=== PATIENT | male | born 1975 | race Caucasian/White ===

== ENCOUNTER 2020-04-23 19:19 | Outpatient (CLI) | payer BC | END 2020-04-23 19:20 | disposition EMS.NT | LOC: EMS 19:19 | PROVIDERS: ATTEND Surgery | DX: R58 Hemorrhage, not elsewhere classified (principal) ==

== ENCOUNTER 2020-04-23 20:07 | Emergency (ER) | payer BC ==
[2020-04-23 20:13] VITALS: BP 143/93
[2020-04-23] MEDS ORDERED: BACITRACIN ZINC OINT 1 PACKET TOP STA (20:22)
--- NOTE | 2020-04-23 20:24 | ED Physician Documentation ---
History of Present Illness - Stated complaint Stated Complaint: RT LEG LAC - Chief complaint Chief Complaint: General - History obtained from History obtained from: Patient - Additonal information Additional information: 4-year-old male presents to the emergency department with a bleeding right medial varicose vein. He reports that he got out of the shower and his he was drying his legs with a towel the vessel ruptured. He had difficulty getting the bleeding to stop so he presented to the emergency department. Patient reports that he has recently been told that he is likely a diabetic. He does have bilateral lower extremity leg swelling that is not new to him. He also has fairly extensive hemosiderin staining bilaterally. Review of Systems Constitutional: reports: Reviewed and negative Ears: reports: Reviewed and negative Nose: reports: Reviewed and negative Throat: reports: Reviewed and negative Cardiac: reports: Other (Lateral lower extremity swelling) Respiratory: reports: Reviewed and negative Skin: reports: Lesions (Extensive varicose veins noted bilateral lower extremities.) Musculoskeletal: reports: Reviewed and negative Neurologic: reports: Reviewed and negative PD PAST MEDICAL HISTORY - Present Medications Home Medications: Ambulatory Orders Medication Instructions Recorded Confirmed No Known Home Medications 04/23/20 04/23/20 - Allergies Allergies/Adverse Reactions: Allergies Allergy/AdvReac Type Severity Reaction Status Date / Time No Known Drug Allergies Allergy Verified 04/23/20 20:13 PD ED PE EXPANDED - General General: Alert, No acute distress, Other (obese) - Cardiac Cardiac: Regular Rate, Regular Rhythm, Radial strong equal, Femoral strong equal, Pedal strong equal, Cap refill < 2 sec, Other (ble non peitting edema). No: Murmur Present - Respiratory Respiratory: Clear to ausultation brandt. No: Distress, Labored - Derm Derm: Other (hemosiderin staining BLE; multiple varicosities. Right medial varicose veing that is the site of the previous bleed no longer bleeding. Small clot seen over vein, no further active bleeding) Results - Vitals Vitals: Vital Signs - 24 hr 04/23/20 20:10 Temperature 36.5 C Heart Rate 94 Respiratory 16 Rate Blood Pressure 143/93 H O2 Saturation 99 Oxygen O2 Source Room air PD MEDICAL DECISION MAKING - ED course Complexity details: d/w patient ED course: 44-year-old male presents to the emergency department with a bleeding varicose vein that he could not get to stop bleeding at home. He did apply a pressure wrap and present to the emergency department. On exam here the site of the previous bleeding is no longer active. At this time no further intervention is required. I discussed with the patient routine care measures for the management of bleeding varicose veins at home including leg elevation. Unfortunately this gentleman is obese and was recently told that he is likely a diabetic. He does have extensive hemosiderin staining. He is continuing to follow-up with his primary care provider for longer-term monitoring and management of that. Departure - Departure Disposition: Home, Self Care Clinical Impression: Varicose vein of leg Qualifiers: Varicose vein complication: inflammation Laterality: right Qualified Code(s): I83.11 - Varicose veins of right lower extremity with inflammation Condition: Stable Record reviewed to determine appropriate education?: Yes Instructions: ED Veins Varicose, Veins Varicose EVLT Tx Comments: Hussain you do have extensive varicose veins in your lower extremities. I would like you to try elevating your legs overnight in the long-term to help reduce the edema and swelling. In 24 hours you may gently remove the dressing that we have placed. If at any point in the future your varicose veins begin to bleed again hold gentle but firm pressure for 20 to 30 minutes if the bleeding does not stop at that time then please present to the emergency department. On exam of your legs you are developing peripheral vascular disease (this is the redness and small ulcers). Please continue to follow-up with your primary care provider for long-term management of what sounds like early diabetes.
== END 2020-04-23 20:40 | disposition home or self-care (01) ==
LOC: ED 20:07
DX: I83.891 Varicose veins of right lower extremity with other complications (principal); E66.9 Obesity, unspecified; L81.8 Other specified disorders of pigmentation
CPT/HCPCS: 99282; 99283

== ENCOUNTER 2020-05-14 08:00 | Outpatient (CLI) | payer BC ==
[2020-05-14 11:41] LABS: BASOPHILS # (AUTO) 0.1 10^3/uL (0.0-0.1); BASOPHILS % (AUTO) 1.1 %; EOSINOPHILS # (AUTO) 0.1 10^3/uL (0.0-0.7); EOSINOPHILS % (AUTO) 0.9 %; HGB - HEMOGLOBIN 17.7 g/dL (14.0-18.0); LYMPHOCYTES # (AUTO) 1.6 10^3/uL (1.5-3.5); LYMPHOCYTES % (AUTO) 16.3 %; MEAN CORPUSCULAR HGB CONC 31.7 g/dL (32.0-36.0); MEAN CORPUSCULAR VOLUME 107.3 fL (80.0-94.0); MONOCYTES # (AUTO) 0.9 10^3/uL (0.0-1.0); MONOCYTES % (AUTO) 9.3 %; NEUTROPHILS # (AUTO) 6.8 10^3/uL (1.5-6.6); NEUTROPHILS % (AUTO) 71.5 %; PLT - PLATELET COUNT 263 10^3/uL (130-450); RED BLOOD COUNT 5.21 10^6/uL (4.70-6.10); RED CELL DISTRIBUTION WIDTH 12.4 % (12.0-15.0); WHITE BLOOD COUNT 9.5 x10^3/uL (4.8-10.8)
[2020-05-14 12:15] LABS: ALBUMIN/GLOBULIN RATIO 1.3 (1.0-2.2); ALKALINE PHOSPHATASE 57 IU/L (42-121); ALT ALANINE AMINOTRANSFERASE 30 IU/L (10-60); AST ASPARTATE AMINOTRANSFERASE 20 IU/L (10-42); BILIRUBIN,TOTAL 0.6 mg/dL (0.2-1.0); BUN - BLOOD UREA NITROGEN 12 mg/dL (6-20); CALCIUM 9.3 mg/dL (8.5-10.3); CARBON DIOXIDE - CO2 27 mmol/L (21-32); CHLORIDE 103 mmol/L (101-111); CHOLESTEROL 182 mg/dL; CREATININE 0.8 mg/dL (0.6-1.2); GLUCOSE 127 mg/dL (70-100); HDL CHOLESTEROL 60 mg/dL; LDL CHOLESTEROL,CALCULATED 107 mg/dL; LDL/HDL RATIO 1.8 (<3.6); SODIUM 139 mmol/L (135-145); TOTAL PROTEIN 7.2 g/dL (6.7-8.2); VLDL CHOLESTEROL 15 mg/dL
[2020-05-14 12:20] LABS: HEMOGLOBIN A1c% 6.9 % (4.27-6.07)
== END 2020-05-14 23:59 | disposition home or self-care (01) ==
LOC: LAB.WCP 08:00
PROVIDERS: ATTEND Family Medicine
DX: I10 Essential (primary) hypertension (principal); E66.9 Obesity, unspecified; R73.02 Impaired glucose tolerance (oral)
CPT/HCPCS: 36415; 80053; 80061; 83036; 83721; 84443; 85025

== ENCOUNTER 2020-06-03 08:00 | Outpatient (CLI) | payer BC ==
[2020-06-03 13:36] LABS: FERRITIN 86.7 ng/mL (23.9-336.2)
[2020-06-03 13:42] LABS: % IRON SATURATION 18 % (20-50); IRON 72 ug/dL (45-182); TOTAL IRON BINDING CAPACITY 405 ug/dL (250-450); TRANSFERRIN 289 mg/dL (180-329)
[2020-06-03 13:43] LABS: FOLATE 7.68 ng/mL (5.90 - >24.8)
== END 2020-06-03 23:59 | disposition home or self-care (01) ==
LOC: LAB.WCP 08:00
PROVIDERS: ATTEND Family Medicine
DX: D75.89 Other specified diseases of blood and blood-forming organs (principal)
CPT/HCPCS: 36415; 82607; 82728; 82746; 83540; 84466

== ENCOUNTER 2020-06-05 10:49 | Outpatient (CLI) | payer BC ==
[2020-06-05 18:50] LABS: CALCIUM 9.6 mg/dL (8.5-10.3)
== END 2020-06-05 10:50 | disposition home or self-care (01) ==
LOC: LAB.WCP 10:49
PROVIDERS: ATTEND Nurse Practitioner Family
DX: I10 Essential (primary) hypertension (principal)
CPT/HCPCS: 36415; 80048

== ENCOUNTER 2020-09-03 08:00 | Outpatient (CLI) | payer BC ==
[2020-09-03 12:28] LABS: ESTIMATED AVERAGE GLUCOSE 131 mg/dL (70-100); HEMOGLOBIN A1c% 6.2 % (4.27-6.07)
[2020-09-03 12:56] LABS: CALCIUM 10.1 mg/dL (8.5-10.3); CREATININE 0.9 mg/dL (0.6-1.2); POTASSIUM 4.3 mmol/L (3.5-5.0)
== END 2020-09-03 23:59 | disposition home or self-care (01) ==
LOC: LAB.WCP 08:00
PROVIDERS: ATTEND Nurse Practitioner Family
DX: E11.9 Type 2 diabetes mellitus without complications (principal)
CPT/HCPCS: 36415; 80048; 83036

== ENCOUNTER 2020-12-18 08:00 | Outpatient (CLI) | payer BC ==
[2020-12-18 17:57] LABS: CREATININE 1.1 mg/dL (0.6-1.2); POTASSIUM 4.1 mmol/L (3.5-5.0)
[2020-12-18 20:32] LABS: ESTIMATED AVERAGE GLUCOSE 143 mg/dL (70-100); HEMOGLOBIN A1c% 6.6 % (4.27-6.07)
== END 2020-12-18 23:59 | disposition home or self-care (01) ==
LOC: LAB.WCP 08:00
PROVIDERS: ATTEND Nurse Practitioner Family
DX: E11.9 Type 2 diabetes mellitus without complications (principal)
CPT/HCPCS: 36415; 80048; 83036

== ENCOUNTER 2021-08-03 09:50 | Outpatient (CLI) | payer BC ==
[2021-08-03 13:51] LABS: BASOPHILS # (AUTO) 0.1 10^3/uL (0.0-0.1); BASOPHILS % (AUTO) 0.9 %; EOSINOPHILS # (AUTO) 0.1 10^3/uL (0.0-0.7); EOSINOPHILS % (AUTO) 1.2 %; HCT - HEMATOCRIT 46.5 % (42.0-52.0); HGB - HEMOGLOBIN 15.3 g/dL (14.0-18.0); LYMPHOCYTES # (AUTO) 1.6 10^3/uL (1.5-3.5); LYMPHOCYTES % (AUTO) 16.3 %; MEAN CORPUSCULAR HEMOGLOBIN 35.8 pg (27.0-31.0); MEAN CORPUSCULAR HGB CONC 32.9 g/dL (32.0-36.0); MEAN CORPUSCULAR VOLUME 108.9 fL (80.0-94.0); MEAN PLATELET VOLUME 9.9 fL (7.4-11.4); MONOCYTES # (AUTO) 0.7 10^3/uL (0.0-1.0); MONOCYTES % (AUTO) 6.7 %; NEUTROPHILS # (AUTO) 7.4 10^3/uL (1.5-6.6); NEUTROPHILS % (AUTO) 73.8 %; PLT - PLATELET COUNT 309 10^3/uL (130-450); RED BLOOD COUNT 4.27 10^6/uL (4.70-6.10); RED CELL DISTRIBUTION WIDTH 14.3 % (12.0-15.0)
[2021-08-03 14:21] LABS: THYROID STIMULATING HORMONE 3.01 uIU/mL (0.34-5.60)
[2021-08-03 14:28] LABS: CREATININE,URINE 268.9 mg/dL; MICROALBUM/CREATININE RATIO,UR 28.6 ug/mg (<30.0); MICROALBUMIN,URINE 7.7 mg/dL (0-300.0)
[2021-08-03 14:37] LABS: ALBUMIN 3.6 g/dL (3.2-5.5); ALBUMIN/GLOBULIN RATIO 1.1 (1.0-2.2); ALKALINE PHOSPHATASE 67 IU/L (42-121); ALT ALANINE AMINOTRANSFERASE 40 IU/L (10-60); AST ASPARTATE AMINOTRANSFERASE 36 IU/L (10-42); BUN - BLOOD UREA NITROGEN 22 mg/dL (6-20); CARBON DIOXIDE - CO2 30 mmol/L (21-32); CHLORIDE 96 mmol/L (101-111); CHOL/HDL RATIO 2.9 (<5.0); CHOLESTEROL 187 mg/dL; CREATININE 1.4 mg/dL (0.6-1.2); GFR - MDRD 54 (>89); GLUCOSE 119 mg/dL (70-100); HDL CHOLESTEROL 65 mg/dL; LDL CHOLESTEROL,CALCULATED 100 mg/dL; LDL/HDL RATIO 1.5 (<3.6); POTASSIUM 4.6 mmol/L (3.5-5.0); SODIUM 137 mmol/L (135-145); TOTAL PROTEIN 6.8 g/dL (6.7-8.2); TRIGLYCERIDES 109 mg/dL; VLDL CHOLESTEROL 22 mg/dL
[2021-08-03 14:38] LABS: ESTIMATED AVERAGE GLUCOSE 146 mg/dL (70-100); HEMOGLOBIN A1c% 6.7 % (4.27-6.07)
== END 2021-08-03 09:51 | disposition home or self-care (01) ==
LOC: LAB.N 09:50
PROVIDERS: ATTEND Physician Assistant
DX: I10 Essential (primary) hypertension (principal); Z13.220 Encounter for screening for lipoid disorders; E11.9 Type 2 diabetes mellitus without complications; Z12.5 Encounter for screening for malignant neoplasm of prostate; Z13.29 Encounter for screening for other suspected endocrine disorder
CPT/HCPCS: 36415; 80053; 80061; 82043; 82570; 83036; 83721; 84153; 84443; 85025

== ENCOUNTER 2021-08-23 14:01 | Outpatient (CLI) | payer BC ==
[2021-08-23 18:29] LABS: CALCIUM 8.8 mg/dL (8.5-10.3); CREATININE 1.4 mg/dL (0.6-1.2); POTASSIUM 4.7 mmol/L (3.5-5.0)
== END 2021-08-23 14:02 | disposition home or self-care (01) ==
LOC: LAB.N 14:01
PROVIDERS: ATTEND Physician Assistant
DX: N17.9 Acute kidney failure, unspecified (principal)
CPT/HCPCS: 36415; 80048

== ENCOUNTER 2021-09-07 14:36 | Outpatient (CLI) | payer BC ==
[2021-09-07 18:35] LABS: ALBUMIN 3.8 g/dL (3.2-5.5); ALBUMIN/GLOBULIN RATIO 1.1 (1.0-2.2); BILIRUBIN,TOTAL 0.5 mg/dL (0.2-1.0); CALCIUM 9.5 mg/dL (8.5-10.3); CREATININE 1.1 mg/dL (0.6-1.2); MAGNESIUM 2.5 mg/dL (1.7-2.8); TOTAL PROTEIN 7.4 g/dL (6.7-8.2)
== END 2021-09-07 14:37 | disposition home or self-care (01) ==
LOC: LAB.N 14:36
PROVIDERS: ATTEND Physician Assistant
DX: N17.9 Acute kidney failure, unspecified (principal)
CPT/HCPCS: 36415; 80053; 83735

== ENCOUNTER 2022-07-09 11:00 | Inpatient (IN) | payer BC, MEDICAID, OTHER ==
--- NOTE | 2022-07-09 11:16 | ED Physician Documentation ---
PD HPI NVD - Stated complaint Stated Complaint: YELLOW SKIN,WEAK,ABD PX - History obtained from History obtained from: Patient, Friend (The patient's friend states he has noticed some yellowing color starting 2 to 3 weeks ago and progressively worsening. General weakness over that timeframe as well.) - History of Present Illness Timing - onset: How many weeks ago (2-3) Timing - duration: Weeks (Patient states he has noticed generalized weakness and some bloating of the abdomen along with progressive yellowing of his skin. He did have COVID about 3 months ago and was ill for 2 weeks. He seemed okay for a couple of months before onset of the symptoms.) Timing - details: Gradual onset, Still present Associated symptoms: Abdominal pain (He describes crampy generalized abdominal pain mainly in the lower aspect. Some bloating. No diarrhea no melena.). No: Fever Contributing factors: Alcohol use (He states he was a regular daily alcohol user until 2 weeks ago when he stopped due to feeling of general weakness. Has continued worsening jaundice despite that.). No: Sick contact (The patient had COVID about 3 months ago but not been exposed to any illnesses recently.), Recent antibiotics, Diabetes Improved by: No: Eating Worsened by: Eating (some nausea and less appetite but no vomiting nor abd pain triggered with eating.) Similar symptoms before: Has not had sx before Recently seen: Not recently seen Review of Systems Constitutional: reports: Myalgias, Fatigue. denies: Fever, Chills, Weight Loss Nose: denies: Rhinorrhea / runny nose, Congestion Throat: denies: Sore throat Respiratory: denies: Cough GI: reports: Abdominal Pain (intermittent cramping), Abdominal Swelling, Nausea. denies: Vomiting, Diarrhea Skin: reports: Other (progressive jaundice for 2-3 weeks.) Neurologic: reports: Generalized weakness. denies: Focal weakness, Numbness PD PAST MEDICAL HISTORY - Past Medical History Cardiovascular: Hypertension Respiratory: None Endocrine/Autoimmune: None GI: None - Present Medications Home Medications: Ambulatory Orders Medication Instructions Recorded Confirmed No Known Home Medications 04/23/20 04/23/20 - Allergies Allergies/Adverse Reactions: Allergies Allergy/AdvReac Type Severity Reaction Status Date / Time No Known Drug Allergies Allergy Verified 04/23/20 20:13 - Social History Does the pt smoke?: No Smoking Status: Never smoker Does the pt drink ETOH?: Yes Does the pt have substance abuse?: No - Immunizations Immunizations are current?: No - POLST Patient has POLST: No PD ED PE NORMAL - Vitals Vital signs reviewed: Yes - General General: Alert and oriented X 3, Well developed/nourished, Other (obvious general jaundice and icteric. ) - HEENT HEENT: Ears normal, Pharynx benign - Neck Neck: Supple, no meningeal sign, No adenopathy - Cardiac Cardiac: RRR, No murmur - Respiratory Respiratory: No respiratory distress, Clear bilaterally - Abdomen Abdomen: Soft, Other (fluid wave to percussion c/w some ascites. liver feels enlarged. No focal tenderness. ). No: Normal bowel sounds (decreased) - Male Male : Deferred - Rectal Rectal: Deferred - Back Back: No CVA TTP - Derm Derm: No: Normal color (jaundice) - Extremities Extremities: Normal ROM s pain, No calf tenderness / cord, Other (mild edema in both lower legs. ) Results - Vitals Vitals: Vital Signs - 24 hr 07/09/22 07/09/22 07/09/22 11:10 13:18 14:00 Temperature 36.9 C Heart Rate 78 61 64 Respiratory 18 18 20 Rate Blood Pressure 90/50 L 114/64 161/72 H O2 Saturation 99 100 98 07/09/22 14:26 Temperature Heart Rate 66 Respiratory 18 Rate Blood Pressure 126/81 H O2 Saturation 97 Oxygen O2 Source Room air - Labs Labs: Laboratory Tests 07/09/22 07/09/22 07/09/22 11:48 11:48 13:28 WBC 23.8 H RBC 3.17 L Hgb TNP Hct TNP MCV TNP MCH TNP MCHC TNP RDW TNP Plt Count 159 MPV 10.8 Neut # (Auto) Not Reportable Lymph # (Auto) Not Reportable [place] # (Auto) Not Reportable Eos # (Auto) Not Reportable Baso # (Auto) Not Reportable Absolute Nucleated RBC Not Reportable Total Counted 100 Band Neuts % (Manual) 11 H Abnorm Lymph % (Manual) 0 Metamyelocytes % 2 H Nucleated RBC % Not Reportable Neutrophils # (Manual) 21.7 H Lymphocytes # (Manual) 1.0 L Monocytes # (Manual) 0.7 Eosinophils # (Manual) 0.0 Basophils # (Manual) 0.0 Differential Comment MANUAL DIFFERENTIAL Manual Slide Review Indicated WBC Morphology 3+ TOXIC GRANULATION Platelet Estimate NORMAL (130-450,000) Platelet Morphology PLATELET CLUMPING RBC Morph Micro Appear 1+ TARGET CELLS Sodium 120 L* Potassium 2.0 L* Chloride 77 L* Carbon Dioxide 30 Anion Gap 13.0 BUN 25 H Creatinine 0.9 Estimated GFR (MDRD) 90 Glucose 147 H Calcium 7.7 L Magnesium 2.5 Total Bilirubin 27.4 H AST 181 H ALT 68 H Alkaline Phosphatase 230 H Ammonia Total Protein 6.2 L Albumin 1.7 L Globulin 4.5 H Albumin/Globulin Ratio 0.4 L Lipase 71 H Urine Color DARK YELLOW Urine Clarity CLEAR Urine pH 6.5 Ur Specific [place] <=1.005 Urine Protein NEGATIVE Urine Glucose (UA) 100 H Urine Ketones NEGATIVE Urine Occult Blood NEGATIVE Urine Nitrite NEGATIVE Urine Bilirubin LARGE H Urine Urobilinogen 1 (NORMAL) Ur Leukocyte Esterase NEGATIVE Ur Microscopic Review NOT INDICATED Urine Culture Comments NOT INDICATED Ethyl Alcohol < 5.0 07/09/22 13:45 WBC RBC Hgb Hct MCV MCH MCHC RDW Plt Count MPV Neut # (Auto) Lymph # (Auto) [place] # (Auto) Eos # (Auto) Baso # (Auto) Absolute Nucleated RBC Total Counted Band Neuts % (Manual) Abnorm Lymph % (Manual) Metamyelocytes % Nucleated RBC % Neutrophils # (Manual) Lymphocytes # (Manual) Monocytes # (Manual) Eosinophils # (Manual) Basophils # (Manual) Differential Comment Manual Slide Review WBC Morphology Platelet Estimate Platelet Morphology RBC Morph Micro Appear Sodium Potassium Chloride Carbon Dioxide Anion Gap BUN Creatinine Estimated GFR (MDRD) Glucose Calcium Magnesium Total Bilirubin AST ALT Alkaline Phosphatase Ammonia 74.5 H Total Protein Albumin Globulin Albumin/Globulin Ratio Lipase Urine Color Urine Clarity Urine pH Ur Specific [place] Urine Protein Urine Glucose (UA) Urine Ketones Urine Occult Blood Urine Nitrite Urine Bilirubin Urine Urobilinogen Ur Leukocyte Esterase Ur Microscopic Review Urine Culture Comments Ethyl Alcohol - Rads (name of study) abd/pelvic CT Radiology: Prelim report reviewed, See rad report PD Medical Decision Making - ED course Complexity details: re-evaluated patient, considered differential (Progressive new onset of painless jaundice with history of alcoholism. He also recent viral illness 3 months ago with COVID. Consideration of chronic liver disease now hitting the tipping point versus underlying liver disease from alcohol and new inflammatory condition. Also check duct/liver.), d/w patient Social Determinants of Health: chronic alcohol use up to 2 weeks ago. ED course: The patient does have a history of alcoholism and is presenting with apparent new onset jaundice. We do not have a trend on prior labs most recently, But he did have a normal bilirubin in August 2021. So this is relatively acute. Consideration would be a worsening injury from continued alcohol use versus a combination of alcohol toxicity and other acute injury such as hepatitis or a persistent organ inflammation from his recent COVID infection 3 months ago. He does have the acute liver failure. CT imaging does not show any outlet obstruction to account for the process. Concurrently he also has low sodium and low potassium and needs these improved upon. Likely these are well contributing to his general weakness. Independent review of his blood test that I ordered showed a critically low sodium of 120 and a potassium of 2.0. He also had a quite elevated bilirubin of 27. I ordered the CT scan to look for bile duct or flow outlet obstructions that may account for the elevated bilirubin. None were seen on the CT scan report which I evaluated. I did not see any abnormalities on my own review of the CT as well. I did order potassium infusions which need to be monitored on a heart monitor for side effects. I ordered 3 sequential ones to accommodate for the degree of hypokalemia. He is given sodium small bolus and then a low level infusion so as not to raise the sodium too quickly. He is awake alert and conversant. He does not have any signs of encephalopathy from either the sodium or the bilirubin. An ammonia level was drawn. At this point we could initiate some lactulose as well. I did talk with the hospitalist for consultation and evaluation for admission and the hospitalist felt the patient did meet admission criteria. They will write orders. I updated the patient on the findings and course anticipated and that he would be admitted. He was in agreement. Departure - Departure Disposition: 66 [facility] DC/Xfer Clinical Impression: Abdominal pain, Hyponatremia, Hypokalemia, Liver failure Condition: Stable
[2022-07-09] MEDS ORDERED: SODIUM CHLORIDE 0.9% 1,000 ML IV STA (11:41)
[2022-07-09 12:20] LABS: ALBUMIN 1.7 g/dL (3.2-5.5); ALBUMIN/GLOBULIN RATIO 0.4 (1.0-2.2); ALKALINE PHOSPHATASE 230 IU/L (42-121); ALT ALANINE AMINOTRANSFERASE 68 IU/L (10-60); AST ASPARTATE AMINOTRANSFERASE 181 IU/L (10-42); BILIRUBIN,TOTAL 27.4 mg/dL (0.2-1.0); BUN - BLOOD UREA NITROGEN 25 mg/dL (6-20); CALCIUM 7.7 mg/dL (8.5-10.3); CARBON DIOXIDE - CO2 30 mmol/L (21-32); CHLORIDE 77 mmol/L (101-111); CREATININE 0.9 mg/dL (0.6-1.2); ETOH - ETHANOL < 5.0 mg/dL; GFR - MDRD 90 (>89); GLUCOSE 147 mg/dL (70-100); LIPASE 71 U/L (22-51); MAGNESIUM 2.5 mg/dL (1.7-2.8); TOTAL PROTEIN 6.2 g/dL (6.7-8.2)
[2022-07-09 12:23] LABS: SODIUM 120 mmol/L (135-145)
[2022-07-09] MEDS ORDERED: iohexoL-300 100 ML VIAL ONE (12:45)
[2022-07-09 12:55] LABS: BASOPHILS % (AUTO) 0.5 %; EOSINOPHILS % (AUTO) 0.6 %; LYMPHOCYTES % (AUTO) 4.2 %; MEAN PLATELET VOLUME 10.8 fL (7.4-11.4); MONOCYTES % (AUTO) 4.6 %; NEUTROPHILS % (AUTO) 84.6 %; PLT - PLATELET COUNT 159 10^3/uL (130-450); RED BLOOD COUNT 3.17 10^6/uL (4.70-6.10); WHITE BLOOD COUNT 23.8 x10^3/uL (4.8-10.8)
[2022-07-09 12:58] LABS: SLIDE REVIEW? Indicated
[2022-07-09 13:00] LABS: ABNORMAL LYMPHS % (MANUAL) 0 %
[2022-07-09 13:16] LABS: BAND NEUTROPHILS % (MANUAL) 11 %; LYMPHOCYTES % (MANUAL) 4 %; METAMYELOCYTES % (MANUAL) 2 %; MONOCYTES # (MANUAL) 0.7 10^3/uL (0.0-1.0); NEUTROPHILS # (MANUAL) 21.7 10^3/uL (1.5-6.6)
[2022-07-09 13:18] LABS: PLATELET ESTIMATE, MANUAL NORMAL (130-450,000) (NORMAL); PLATELET MORPHOLOGY PLATELET CLUMPING (NORMAL)
[2022-07-09 13:19] LABS: DIFFERENTIAL COMMENT MANUAL DIFFERENTIAL; WBC MORPHOLOGY (MULTIPLE) 3+ TOXIC GRANULATION (NORMAL)
--- NOTE | 2022-07-09 13:32 | CT Report ---
PROCEDURE: CT abdomen pelvis with contrast INDICATIONS: 46-year-old male with new onset jaundice CONTRAST: 100ml omni 300 TECHNIQUE: After the administration of contrast, 5 mm thick sections acquired from the diaphragms to the sym physis. 5 mm thick coronal and sagittal reformats were acquired. For radiation dose reduction, the following was used: automated exposure control, adjustment of mA and/or kV according to patient size . COMPARISON: None. FINDINGS: Lower thorax: The lung bases are clear. Heart size normal. No hiatal hernia. Liver: Diffusely decreased hepatic attenuation without focal mass lesion. Hepatomegaly measures 33.2 cm Biliary system: No calcified cholelithiasis or pericholecystic inflammation. No evidence of bile du ct dilatation. Pancreas: Pancreas appears edematous, and there is a low-density lesion in the tail the pancreas chirag uring 2.4 cm Spleen: Spleen is enlarged at 15.5 cm Adrenals: Normal morphology and density. Reproductive system: Unremarkable as visualized. Urinary system: Normal renal size and attenuation. No renal calculi, hydronephrosis, or solid mass p resent. Urinary bladder unremarkable. Gastrointestinal system: Colonic bowel wall thickening. No obstruction or pneumatosis. Small bowel un remarkable. Appendix: No findings to suggest acute appendicitis. Peritoneal spaces: Moderate abdominal and pelvic ascites present. Vasculature: The IVC, aorta and iliac vasculature are unremarkable. Musculoskeletal: Normal bone mineralization. No acute fractures. Abdominal wall intact without chasity dence of ventral or inguinal hernias. IMPRESSION: 1. Hepatosplenomegaly without focal mass lesion. 2. Edematous pancreas with a focal hypointense lesion in the tail the pancreas. Differential would in clude neoplasm, pancreatitis and pancreatic necrosis 3. Moderate ascites Reviewed by: Bryant Alberto MD on 07/09/2022 12:30 PM [place] Approved by: Bryant Alberto MD on 07/09/2022 12:30 PM [facility] Station ID: [id number]
[2022-07-09] MEDS: POTASSIUM CHLOR 10 MEQ/100 ML 10 MEQ/100 ML BAG IV SCH ×5 (13:34→23:42)
[2022-07-09 13:36] LABS: GLUCOSE, URINE (UA) 100 mg/dL (NEGATIVE); KETONES,URINE (UA) NEGATIVE (NEGATIVE); LEUKOCYTE ESTERASE, URINE NEGATIVE (NEGATIVE); NITRITE,URINE NEGATIVE (NEGATIVE); OCCULT BLOOD,URINE NEGATIVE (NEGATIVE); PH,URINE 6.5 PH (5.0-7.5); PROTEIN,URINE NEGATIVE (NEGATIVE); UROBILINOGEN,URINE 1 (NORMAL) E.U./dL (NORMAL)
[2022-07-09 13:41] LABS: BILIRUBIN,URINE LARGE (NEGATIVE); CLARITY,URINE CLEAR (CLEAR); ICTOTEST,URINE POSITIVE
[2022-07-09] MEDS ORDERED: ONDANSETRON 4 MG/2 ML VIAL IVP PRN (14:38)
[2022-07-09] MEDS ORDERED: SODIUM CHLORIDE FLUSH 0.9% 10 ML SYRINGE IVP PRN (14:38)
[2022-07-09] MEDS ORDERED: ONDANSETRON ODT 4 MG TABLET TL PRN (14:38)
[2022-07-09] MEDS ORDERED: oxyCODONE 5 MG TABLET PO PRN (14:38)
--- NOTE | 2022-07-09 14:53 | HISTORY & PHYSICAL EXAMINATION ---
Chief Complaint - Chief Complaint Chief Complaint: yellow skin, bloating of abd, generalized weakness History of Present Illness - Admitted From Admitted From:: walked into ED - History Obtained From Records Reviewed: in electronic EHR History obtained from: patient Exam Limitations: none - History of Present Illness HPI Comment/Other: Hussain is a 46 yo smoking male with PMH of HTN, diabetes, alcohol use, drinks half of a fifth of vodka every night since he was let go from work a year ago, with 3-4 detoxes over his life, no seizures. Presented to ED with nausea, vomiting, abd cramping, and jaundice with out pain. His last drink was 2 weeks ago when he started having the above symptoms. His mom noticed his yellow skin, then he began to feel unwell, and wobbly. He took a "liver detox called the plug" that he bought online. Took several 8oz bottles of the detox but it did not help and he noticed his urine was getting dark brown. He was very uncomfortable and not able to get a good night's sleep so he came to the hospital. He presented to the ED with painless jaundice. He did have weight loss of 20lbs but that was over a year ago when he got COVID. His labs are Na 120, K 2.0, AST 181, ALT 68, total Bilirubin of 27.4, H&H was not able to be read due to gross icterus. WBC 23.8 CT imaging shows hepatomegaly, and a lesion in the tail of the pancreas, no evidence of bile duct dilation. He is not encephalopathic he does not have asterixis. Admitted to floor for hypokalemia and hyponatremia. He is a pleasant jaundiced man sitting up in bed. His physical exam is notable for hepatomegaly, a large protuberant abd that has a positive fluid wave. He had cramping for a few days with associated nausea and vomiting but denies pain now. He reports a white stool this am. When asked what he thinks is going on he responds that his liver levels are messed up. When the nurse was getting him up to go to the bathroom he fell due to weakness in his legs. Did not hit his head did not loose consciousness. History - Past Medical History Cardiovascular: reports: Hypertension Respiratory: reports: None Endocrine/Autoimmune: reports: None GI: reports: None, GERD : reports: None HEENT: reports: None (wears glasses) Psych: reports: Anxiety (has been told he has high functioning anxiety ) Musculoskeletal: reports: Fatigue (notes BLE weakness) Derm: reports: Other (jaundice) MRSA Hx?: No - Past Surgical History Cardiovascular: reports: Other (varicose vein cauterization RLE) - Family & Social History Family History Comment/Other: Mom: 73 yo. Dad: 73 yo with valvular heart disease and HTN. Brother: 47yo healhty Living arrangement: At home (family lives a couple of blocks away) Living Situation: Alone Social History Notes: Unemployed for a year - Substance History Use: Uses substance without health or social issues: Tobacco (Smoked 1ppd for over 20 years, now smokes just a few cigarettes a day), Alcohol (Drinks 3-4 beers per night, 1 DUI many years ago, no hx of withdrawal or seizures ) Abuse: Recurrent use of substance despite neg consequences: Alcohol (has been drinking half of a fifth of vodka a night) Abuse Issues: Intoxication Dependence: Experiences withdrawal or developed tolerances: Alcohol Dependence Issues: Intoxication Tobacco Details: Cigarettes - POLST Patient has POLST: No Meds/Allgy - Home Medications Home Medications: Ambulatory Orders Medication Instructions Recorded Confirmed Chlorthalidone 25 mg PO DAILY 07/09/22 07/09/22 Furosemide [Lasix] 20 mg PO DAILY 07/09/22 07/09/22 metFORMIN [Glucophage] 500 mg PO BIDWM 07/09/22 07/09/22 - Allergies Allergies/Adverse Reactions: Allergies Allergy/AdvReac Type Severity Reaction Status Date / Time No Known Drug Allergies Allergy Verified 04/23/20 20:13 Exam - Vital Signs Vital Signs: Vital Signs x48h Temp Pulse Resp BP Pulse Ox 07/09/22 14:26 66 18 126/81 H 97 07/09/22 14:00 64 20 161/72 H 98 07/09/22 13:18 61 18 114/64 100 07/09/22 11:10 36.9 C 78 18 90/50 L 99 - Physical Exam General Appearance: positive: No acute distress Eyes Bilateral: positive: Other (scleral icterus) ENT: positive: ENT inspection nml Neck: positive: Nml inspection Respiratory: positive: Chest non-tender Cardiovascular: positive: Regular rate & rhythm Peripheral Pulses: positive: 1+ Abdomen: positive: Tenderness (Liver palpable across midline of abd and extends down several inches below the rib cage.), Hepatomegaly Back: positive: Nml inspection Skin: positive: Warm, Dry (jaundice) Extremities: positive: Pedal edema (BLE edema R>L) Neurologic/Psychiatric: positive: Oriented x3 Conclusion/Plan - Problem List (1) Hypokalemia Conclusion/Plan: K+ 2.0 in ED Plan: goal of K>3.5, will replace K+ then recheck K lab, (2) Hyponatremia Conclusion/Plan: Na120 Plan: repeat BMP tonight, increase serum Na by 1 point every 2-4 hrs, infuse NS, and fluid restriction, (3) Liver failure Conclusion/Plan: AST 181, ALT 68, AST/ALT ratio>2, total bilirubin 27.4, painless jaundice with white stool this morning Plan: get PT, INR labs for Maddrey's, MELD, and [place] score, based on maddrey score may give steroids, will send off hepatitis panel, check acetaminophen level to rule out tylenol toxicity, MRCP ordered to rule out mass. Qualifiers: Liver failure chronicity: acute Hepatic coma status: without hepatic coma Qualified Code(s): K72.00 - Acute and subacute hepatic failure without coma (4) Hypertension Conclusion/Plan: Pt has diagnosis of HTN takes lasix and chlorthalidone as home meds. Plan: He is hypotensive right now, will hold his home meds Qualifiers: Hypertension type: primary hypertension Qualified Code(s): I10 - Essential (primary) hypertension (5) Diabetes Conclusion/Plan: takes metformin at home, numbness to BLE on exam, Glucose 147 today, has not had anything to eat today. Plan: Metformin may cause acidosis no metformin. Will manage his BG with sub q insulin while in shopital, check A1c Qualifiers: Diabetes mellitus type: type 2 Diabetes mellitus longterm insulin use: without regional intermodal truck driver use Diabetes mellitus complication status: with neurologic complications Diabetes mellitus complication detail: with polyneuropathy Qualified Code(s): E11.42 - Type 2 diabetes mellitus with diabetic polyneuropathy (6) Liver cirrhosis Conclusion/Plan: hx of heavy alcohol use, elevated total billirubin, AST/ALT>2 CT 07/09/22 Findings: -lower thorax: lung bases are clear heart size normal. No hiatal hernia. -Liver: diffusely decreased hepatic attenuation without focal mass lesion. Hepatomegaly measures 33.2cm -Biliary system: no calcified cholelithiasis or pericholecstic inflammation. No evidence of bile duct dilation. -Pancrease: pancrease appears edematous, and there is a low-density lesion in the tail of the pancrease measuring 2.4cm -Spleen: Spleen is enlarged at 15.5cm -Adrenals: normal morphology and density -Urinary system: normal renal size and attenuation. No renal calculi, hydronephrosis, or solid mass present. Urinary bladder unremarkable. -GI: colonic bowel wall thickening. No obstruction or pneumatosis. Small bowel unremarkable. -Appendix: no findings to suggest acute appendicitis. Plan: supportive care, hydration Qualifiers: Ascites presence: with ascites - Lab Results Lab results reviewed: Yes Fish Bones: 07/09/22 11:48 07/09/22 11:48 - Diagnostic Imaging Results Diagnostic Imaging Results: positive: Final report reviewed - EKG Results EKG Interpreted Independently: No EKG Comparison: No prior EKG Core Measures - Anticipated LOS I expect patient to be DC'd or transferred within 96 hours.: Yes - DVT/VTE - Prophylaxis VTE/DVT Device ordered at admit?: Yes - Stroke - Rehab Assessment Rehab services assessment to be ordered?: No
[2022-07-09] MEDS: SODIUM CHLORIDE 0.9% 1,000 ML IV SCH (15:27)
[2022-07-09 15:35] LABS: CORONAVIRUS 229E-RESP PCR NOT DETECTED; CORONAVIRUS HKU1-RESP PCR NOT DETECTED; CORONAVIRUS NL63-RESP PCR NOT DETECTED; CORONAVIRUS OC43-RESP PCR NOT DETECTED; HUMAN METAPNEUMOVIRUS NOT DETECTED; INFLUENZA A- RESP PCR PANEL NOT DETECTED; INFLUENZA B - RESP PCR PANEL NOT DETECTED; PARAINFLUENZA VIRUS 1 NOT DETECTED; PARAINFLUENZA VIRUS 2 NOT DETECTED; PARAINFLUENZA VIRUS 3 NOT DETECTED; PARAINFLUENZA VIRUS 4 NOT DETECTED; RHINOVIRUS/ENTEROVIRUS NOT DETECTED; RSV- RESP PCR PANEL NOT DETECTED; SARS-CoV-2 -RESP PCR PANEL NOT DETECTED
[2022-07-09] MEDS ORDERED: iohexoL-300 100 ML VIAL IVP ONE (15:35)
[2022-07-09 15:36] LABS: B. PARAPERTUSSIS- RESP PCR PAN NOT DETECTED; B. PERTUSSIS- RESP PCR PANEL NOT DETECTED; C. PNEUMONIAE- RESP PCR PANEL NOT DETECTED; M. PNEUMONIAE- RESP PCR PANEL NOT DETECTED
--- NOTE | 2022-07-09 16:56 | PHARMACY PROGRESS NOTE ---
- Best Possible Medication History Admit Date and Time: 07/09/22 1435 Processed by: Pharmacy Medication History completed: Yes Patient Interview: Pt interview ONLY source As the person ultimately responsible for medication therapy, providers are able to order a medication from an existing home medication list in [facility] via the "Reconcile Routine" prior to Confirmation of that medication by product support analyst. Such practice is discouraged except when the physician, in their clinical judgment, deems that a medical need exists for a medication without regard to previous use.
[2022-07-09 17:20] LABS: INR 2.2 (0.8-1.2); PT - PROTHROMBIN TIME 23.2 secs (9.9-12.6)
[2022-07-09] MEDS: SODIUM CHLORIDE FLUSH 0.9% 10 ML SYRINGE IVP SCH (17:37)
[2022-07-09] MEDS ORDERED: GADOBUTROL 15 MMOL/15 ML VIAL ONE (18:22)
[2022-07-09] MEDS ORDERED: GADOBUTROL 15 MMOL/15 ML VIAL IVP ONE (20:16)
[2022-07-09] MEDS: INSULIN LISPRO 300 UNIT/3 ML PEN SUBQ SCH (20:53)
[2022-07-09 21:32] LABS: CALCIUM 7.5 mg/dL (8.5-10.3); CREATININE 0.9 mg/dL (0.6-1.2)
[2022-07-09 21:35] LABS: POTASSIUM 2.1 mmol/L (3.5-5.0)
--- NOTE | 2022-07-09 22:06 | MRI Report ---
PROCEDURE: MRCP W/WO INDICATIONS: painless jaundice, pancreatic mass CONTRAST: 11.3 TECHNIQUE: Coronal ultra fast SE through the abdomen, axial 2-D spoiled GE in- and [id number], and breath-hold T2 FSE with fat saturation through the biliary system and pancreas. Oblique coronal and axial thin- slice ultra fast SE, radial thick-slab ultra fast SE centered on the extrahepatic bile ducts. COMPARISON: CT scanning of the abdomen/pelvis earlier same day reviewed. That study identified ascit es, hepatosplenomegaly, and a heterogeneous pancreatic tail masslike structure. FINDINGS: Image quality: Excellent. Pancreas and biliary system: Intra- and extra-hepatic biliary ducts are non dilated. Pancreas is no rmal in morphology on the right but laterally, on the left, at the pancreatic tail there is an ovoid region of heterogeneous enhancement, measuring approximately 4.4 cm transverse and 3.1 cm AP and cran iocaudad., without adjacent soft tissue edema. Pancreatic duct is normal in caliber, without develop mental anomalies. Gallbladder demonstrates mild prominence of the mucosal enhancement, but a discret e gallbladder mass or gallstone within the gallbladder lumen is not found Other solid organs: Liver and spleen are enlarged with the craniocaudad length of the liver 26.9 cm and that of the spleen 17.8 cm. The liver is heterogeneous, globally enlarged, demonstrates heterogen eous fatty infiltration, and lobular capsular morphology, without definite malignant masses within. No adrenal nodules. Both kidneys are normal in size, without hydronephrosis. Nodes and vessels: No retroperitoneal or mesenteric adenopathy by size criteria. Aorta and inferior vena cava are normal in size. Bowel and peritoneum: Unenhanced bowel loops are normal in caliber. Extensive ascites which extends into the pelvis is noted. Also noted are several areas of what appears to be anterior omental mild th ickening and lateral left upper quadrant peritoneal enhancement and slight thickening. Both inflammat ory and neoplastic etiology should be considered. Lung bases: No basal pleural effusions. Heart size is normal. Bones and soft tissues: No ventral hernias. Bone marrow is of normal overall signal. IMPRESSION: The cause of reported painless jaundice does not appear to be biliary ductal obstruction. There is he patosplenomegaly and prominent heterogeneity of the hepatic parenchyma in addition to moderately candice re ascites. Hepatic insufficiency is suspected as etiology of jaundice in this clinical circumstance. There is abnormality at the pancreatic tail as discussed above, which could represent coincidental id entification of a pancreatic malignancy. However, pancreatitis and pancreatic necrosis in that area a lso could produce this appearance. It may be warranted to obtain elective paracentesis for cytology assessment. Discrete peritoneal mass es are not seen but there is a slight degree of peritoneal enhancement at several areas within the le ft upper quadrant laterally and the omentum at the anterior upper epigastrium area appears slightly p rominent in thickness Reviewed by: Lb Mayers MD on 07/09/2022 10:04 PM PST Approved by: Lb Mayers MD on 07/09/2022 10:04 PM PST Station ID: [id number]
[2022-07-10] MEDS: POTASSIUM CHLOR 10 MEQ/100 ML 10 MEQ/100 ML BAG IV SCH ×2 (00:42→01:44)
[2022-07-10] MEDS: SODIUM CHLORIDE FLUSH 0.9% 10 ML SYRINGE IVP SCH ×3 (01:42→16:59)
[2022-07-10] MEDS: SODIUM CHLORIDE 0.9% 1,000 ML IV SCH (05:07)
[2022-07-10 06:22] LABS: BASOPHILS % (AUTO) 0.5 %; EOSINOPHILS % (AUTO) 1.1 %; HCT - HEMATOCRIT 30.5 % (42.0-52.0); LYMPHOCYTES % (AUTO) 5.9 %; MONOCYTES % (AUTO) 4.8 %; NEUTROPHILS % (AUTO) 81.9 %; PLT - PLATELET COUNT 148 10^3/uL (130-450); RED BLOOD COUNT 2.81 10^6/uL (4.70-6.10); RED CELL DISTRIBUTION WIDTH 14.7 % (12.0-15.0); WHITE BLOOD COUNT 20.1 x10^3/uL (4.8-10.8)
[2022-07-10 06:41] LABS: ALBUMIN 1.4 g/dL (3.2-5.5); ALBUMIN/GLOBULIN RATIO 0.4 (1.0-2.2); BILIRUBIN,TOTAL 23.7 mg/dL (0.2-1.0); CALCIUM 7.2 mg/dL (8.5-10.3); CREATININE 0.7 mg/dL (0.6-1.2); TOTAL PROTEIN 5.4 g/dL (6.7-8.2)
[2022-07-10 07:05] LABS: POTASSIUM 2.1 mmol/L (3.5-5.0)
[2022-07-10 07:31] LABS: ABNORMAL LYMPHS % (MANUAL) 0 %; BAND NEUTROPHILS % (MANUAL) 0 %
[2022-07-10 07:41] LABS: EOSINOPHILS # (MANUAL) 0.6 10^3/uL (0-0.7); LYMPHOCYTES # (MANUAL) 1.8 10^3/uL (1.5-3.5); LYMPHOCYTES % (MANUAL) 9 %; NEUTROPHILS # (MANUAL) 15.7 10^3/uL (1.5-6.6)
--- NOTE | 2022-07-10 07:41 | PROVIDER PROGRESS NOTE ---
Subjective - Prog Note Date Prog Note Date: 07/10/22 Prog Note Time: 07:34 - Subjective Subjective: I encounter Hussain in his room on day 2 of his hospitalization. He reports that he feels better, he has been able to drink and eat without nausea. He sits up on the edge of the bed to urinate, he has not had a stool this admission. I discussed his MRCP results including the lesion on the tail of his pancreas suspicious for inflammation or cancer. He agrees with plan to follow up outpatient for possible biopsy. I informed him that we believe his liver has been injured because of his drinking and he has increased risk for dying because of this. I told him he needs to stop drinking and he agrees that he is not going to drink anymore. He is polite, and oriented and thanks me for the visit. Labs are slightly improved today, Maddrey score 72.5, prednisone ordered. Current Medications - Current Medications Current Medications: Sodium Chloride (Normal Saline 0.9%) 1,000 mls @ 100 mls/hr IV .Q10H FORMERLY [facility], 1928–1983 Last Admin: 07/10/22 05:07 Dose: 100 mls/hr Insulin Human Lispro (Insulin Lispro 300 Unit/3 Ml Pen) 1 - 5 unit SUBQ 0800,1200,1700,2100 FORMERLY [facility], [facility]–1983; Protocol Last Admin: 07/09/22 20:53 Dose: 2 unit Ondansetron HCl (Ondansetron Odt 4 Mg Tablet) 4 mg TL Q6HR PRN PRN Reason: Nausea / Vomiting Ondansetron HCl (Ondansetron 4 Mg/2 Ml Vial) 4 mg IVP Q6HR PRN PRN Reason: Nausea / Vomiting Oxycodone HCl (Oxycodone 5 Mg Tablet) 5 mg PO Q4HR PRN PRN Reason: Pain 5 to 7 Sodium Chloride (Sodium Chloride Flush 0.9% 10 Ml Syringe) 10 ml IVP PRN PRN PRN Reason: NEEDED PER PROVIDER ORDERS Sodium Chloride (Sodium Chloride Flush 0.9% 10 Ml Syringe) 10 ml IVP 0100,0900 ,1700 FORMERLY [facility], [facility] Last Admin: 07/10/22 01:42 Dose: Not Given Objective - Vital Signs/Intake & Output Vital Signs: Vital Signs x48h Temp Pulse Resp BP Pulse Ox 07/10/22 04:56 36.4 C L 72 17 93/53 L 93 01/08/23 00:36 36.4 C L 66 18 98/54 L 92 Intake & Output: Intake & Output 07/07/22 07/08/22 07/09/22 07/10/22 23:59 23:59 23:59 23:59 Intake Total 2231.667 753.333 Output Total 300 600 Balance 1931.667 153.333 - Objective General Appearance: positive: No acute distress Eyes Bilateral: positive: Other (scleral icterus) Eyes: OU Scleral icterus ENT: positive: Dry mucous membranes Neck: positive: Nml inspection Respiratory: positive: Chest non-tender Cardiovascular: positive: Regular rate & rhythm Peripheral Pulses: 1+ Radial (R), 1+ Radial (L), 1+ Posterior tibialis (R), 1+ Posterior tibialis (L) Abdomen: positive: Non-tender, Hepatomegaly Back: positive: Nml inspection Skin: positive: Other (jaundice) Extremities: positive: No pedal edema Neurologic/Psychiatric: positive: Oriented x3 - Lab Results Fish Bones: 07/10/22 06:06 07/10/22 06:06 Other Labs: Lab Results x24hrs 07/10/22 07/10/22 07/09/22 Range/Units 06:06 06:06 21:07 WBC 20.1 H (4.8-10.8) x10^3/uL RBC 2.81 L (4.70-6.10) 10^6/uL Hgb Hct 30.5 L MCV MCH MCHC RDW 14.7 Plt Count 148 (130-450) 10^3/uL MPV 10.0 (7.4-11.4) fL Neut # (Auto) Lymph # (Auto) [place] # (Auto) Eos # (Auto) Baso # (Auto) Absolute Nucleated RBC Total Counted Band Neuts % (Manual) (0 - 10) % Abnorm Lymph % (Manual) % Metamyelocytes % ( - 0) % Nucleated RBC % Neutrophils # (Manual) (1.5-6.6) 10^3/uL Lymphocytes # (Manual) (1.5-3.5) 10^3/uL Monocytes # (Manual) (0.0-1.0) 10^3/uL Eosinophils # (Manual) (0-0.7) 10^3/uL Basophils # (Manual) (0-0.1) 10^3/uL Differential Comment Manual Slide Review WBC Morphology (NORMAL) Platelet Estimate (NORMAL) Platelet Morphology (NORMAL) RBC Morph Micro Appear (NORMAL) PT (9.9-12.6) secs INR (0.8-1.2) Sodium 123 L 121 L (135-145) mmol/L Potassium 2.1 L* 2.1 L* (3.5-5.0) mmol/L Chloride 84 L 79 L* (101-111) mmol/L Carbon Dioxide 31 30 (21-32) mmol/L Anion Gap 8.0 12.0 (6-13) BUN 21 H 24 H (6-20) mg/dL Creatinine 0.7 0.9 (0.6-1.2) mg/dL Estimated GFR (MDRD) 120 90 (>89) Glucose 119 H 202 H (70-100) mg/dL POC Whole Bld Glucose (70 - 100) mg/dL Calcium 7.2 L 7.5 L (8.5-10.3) mg/dL Magnesium (1.7-2.8) mg/dL Total Bilirubin 23.7 H (0.2-1.0) mg/dL AST 170 H (10-42) IU/L ALT 65 H (10-60) IU/L Alkaline Phosphatase 199 H (42-121) IU/L Ammonia (7-35) umol/L Total Protein 5.4 L (6.7-8.2) g/dL Albumin 1.4 L (3.2-5.5) g/dL Globulin 4.0 (2.1-4.2) g/dL Albumin/Globulin Ratio 0.4 L (1.0-2.2) Lipase (22-51) U/L Urine Color Urine Clarity (CLEAR) Urine pH (5.0-7.5) PH Ur Specific Axton (1.002-1.030) Urine Protein (NEGATIVE) mg/dL Urine Glucose (UA) (NEGATIVE) mg/dL Urine Ketones (NEGATIVE) mg/dL Urine Occult Blood (NEGATIVE) Urine Nitrite (NEGATIVE) Urine Bilirubin (NEGATIVE) Urine Urobilinogen (NORMAL) E.U./dL Ur Leukocyte Esterase (NEGATIVE) Ur Microscopic Review Urine Culture Comments Nasal Adenovirus (PCR) Nasal B. parapertussis DNA (PCR) Nasal Coronavir 229E PCR Nasal Coronavir HKU1 PCR Nasal Coronavir NL63 PCR Nasal Coronavir OC43 PCR Nasal Enterovir/Rhinovir PCR Nasal Influenza B PCR Nasal Influenza A PCR Nasal Parainfluen 1 PCR Nasal Parainfluen 2 PCR Nasal Parainfluen 3 PCR Nasal Parainfluen 4 PCR Nasal RSV (PCR) Nasal B.pertussis DNA PCR Nasal C.pneumoniae (PCR) Rico Human Metapneumo PCR Nasal M.pneumoniae (PCR) Nasal SARS-CoV-2 (PCR) Ethyl Alcohol mg/dL 07/09/22 07/09/22 07/09/22 Range/Units 20:45 17:05 14:22 WBC (4.8-10.8) x10^3/uL RBC (4.70-6.10) 10^6/uL Hgb Hct MCV MCH MCHC RDW Plt Count (130-450) 10^3/uL MPV (7.4-11.4) fL Neut # (Auto) Lymph # (Auto) [place] # (Auto) Eos # (Auto) Baso # (Auto) Absolute Nucleated RBC Total Counted Band Neuts % (Manual) (0 - 10) % Abnorm Lymph % (Manual) % Metamyelocytes % ( - 0) % Nucleated RBC % Neutrophils # (Manual) (1.5-6.6) 10^3/uL Lymphocytes # (Manual) (1.5-3.5) 10^3/uL Monocytes # (Manual) (0.0-1.0) 10^3/uL Eosinophils # (Manual) (0-0.7) 10^3/uL Basophils # (Manual) (0-0.1) 10^3/uL Differential Comment Manual Slide Review WBC Morphology (NORMAL) Platelet Estimate (NORMAL) Platelet Morphology (NORMAL) RBC Morph Micro Appear (NORMAL) PT 23.2 H (9.9-12.6) secs INR 2.2 H (0.8-1.2) Sodium (135-145) mmol/L Potassium (3.5-5.0) mmol/L Chloride (101-111) mmol/L Carbon Dioxide (21-32) mmol/L Anion Gap (6-13) BUN (6-20) mg/dL Creatinine (0.6-1.2) mg/dL Estimated GFR (MDRD) (>89) Glucose (70-100) mg/dL POC Whole Bld Glucose 220 H (70 - 100) mg/dL Calcium (8.5-10.3) mg/dL Magnesium (1.7-2.8) mg/dL Total Bilirubin (0.2-1.0) mg/dL AST (10-42) IU/L ALT (10-60) IU/L Alkaline Phosphatase (42-121) IU/L Ammonia (7-35) umol/L Total Protein (6.7-8.2) g/dL Albumin (3.2-5.5) g/dL Globulin (2.1-4.2) g/dL Albumin/Globulin Ratio (1.0-2.2) Lipase (22-51) U/L Urine Color Urine Clarity (CLEAR) Urine pH (5.0-7.5) PH Ur Specific Axton (1.002-1.030) Urine Protein (NEGATIVE) mg/dL Urine Glucose (UA) (NEGATIVE) mg/dL Urine Ketones (NEGATIVE) mg/dL Urine Occult Blood (NEGATIVE) Urine Nitrite (NEGATIVE) Urine Bilirubin (NEGATIVE) Urine Urobilinogen (NORMAL) E.U./dL Ur Leukocyte Esterase (NEGATIVE) Ur Microscopic Review Urine Culture Comments Nasal Adenovirus (PCR) NOT DETECTED Nasal B. parapertussis DNA (PCR) NOT DETECTED Nasal Coronavir 229E PCR NOT DETECTED Nasal Coronavir HKU1 PCR NOT DETECTED Nasal Coronavir NL63 PCR NOT DETECTED Nasal Coronavir OC43 PCR NOT DETECTED Nasal Enterovir/Rhinovir PCR NOT DETECTED Nasal Influenza B PCR NOT DETECTED Nasal Influenza A PCR NOT DETECTED Nasal Parainfluen 1 PCR NOT DETECTED Nasal Parainfluen 2 PCR NOT DETECTED Nasal Parainfluen 3 PCR NOT DETECTED Nasal Parainfluen 4 PCR NOT DETECTED Nasal RSV (PCR) NOT DETECTED Nasal B.pertussis DNA PCR NOT DETECTED Nasal C.pneumoniae (PCR) NOT DETECTED Rico Human Metapneumo PCR NOT DETECTED Nasal M.pneumoniae (PCR) NOT DETECTED Nasal SARS-CoV-2 (PCR) NOT DETECTED Ethyl Alcohol mg/dL 07/09/22 07/09/22 07/09/22 Range/Units 13:45 13:28 11:48 WBC (4.8-10.8) x10^3/uL RBC (4.70-6.10) 10^6/uL Hgb Hct MCV MCH MCHC RDW Plt Count (130-450) 10^3/uL MPV (7.4-11.4) fL Neut # (Auto) Lymph # (Auto) [place] # (Auto) Eos # (Auto) Baso # (Auto) Absolute Nucleated RBC Total Counted Band Neuts % (Manual) (0 - 10) % Abnorm Lymph % (Manual) % Metamyelocytes % ( - 0) % Nucleated RBC % Neutrophils # (Manual) (1.5-6.6) 10^3/uL Lymphocytes # (Manual) (1.5-3.5) 10^3/uL Monocytes # (Manual) (0.0-1.0) 10^3/uL Eosinophils # (Manual) (0-0.7) 10^3/uL Basophils # (Manual) (0-0.1) 10^3/uL Differential Comment Manual Slide Review WBC Morphology (NORMAL) Platelet Estimate (NORMAL) Platelet Morphology (NORMAL) RBC Morph Micro Appear (NORMAL) PT (9.9-12.6) secs INR (0.8-1.2) Sodium 120 L* (135-145) mmol/L Potassium 2.0 L* (3.5-5.0) mmol/L Chloride 77 L* (101-111) mmol/L Carbon Dioxide 30 (21-32) mmol/L Anion Gap 13.0 (6-13) BUN 25 H (6-20) mg/dL Creatinine 0.9 (0.6-1.2) mg/dL Estimated GFR (MDRD) 90 (>89) Glucose 147 H (70-100) mg/dL POC Whole Bld Glucose (70 - 100) mg/dL Calcium 7.7 L (8.5-10.3) mg/dL Magnesium 2.5 (1.7-2.8) mg/dL Total Bilirubin 27.4 H (0.2-1.0) mg/dL AST 181 H (10-42) IU/L ALT 68 H (10-60) IU/L Alkaline Phosphatase 230 H (42-121) IU/L Ammonia 74.5 H (7-35) umol/L Total Protein 6.2 L (6.7-8.2) g/dL Albumin 1.7 L (3.2-5.5) g/dL Globulin 4.5 H (2.1-4.2) g/dL Albumin/Globulin Ratio 0.4 L (1.0-2.2) Lipase 71 H (22-51) U/L Urine Color DARK YELLOW Urine Clarity CLEAR (CLEAR) Urine pH 6.5 (5.0-7.5) PH Ur Specific Axton <=1.005 (1.002-1.030) Urine Protein NEGATIVE (NEGATIVE) mg/dL Urine Glucose (UA) 100 H (NEGATIVE) mg/dL Urine Ketones NEGATIVE (NEGATIVE) mg/dL Urine Occult Blood NEGATIVE (NEGATIVE) Urine Nitrite NEGATIVE (NEGATIVE) Urine Bilirubin LARGE H (NEGATIVE) Urine Urobilinogen 1 (NORMAL) (NORMAL) E.U./dL Ur Leukocyte Esterase NEGATIVE (NEGATIVE) Ur Microscopic Review NOT INDICATED Urine Culture Comments NOT INDICATED Nasal Adenovirus (PCR) Nasal B. parapertussis DNA (PCR) Nasal Coronavir 229E PCR Nasal Coronavir HKU1 PCR Nasal Coronavir NL63 PCR Nasal Coronavir OC43 PCR Nasal Enterovir/Rhinovir PCR Nasal Influenza B PCR Nasal Influenza A PCR Nasal Parainfluen 1 PCR Nasal Parainfluen 2 PCR Nasal Parainfluen 3 PCR Nasal Parainfluen 4 PCR Nasal RSV (PCR) Nasal B.pertussis DNA PCR Nasal C.pneumoniae (PCR) Rico Human Metapneumo PCR Nasal M.pneumoniae (PCR) Nasal SARS-CoV-2 (PCR) Ethyl Alcohol < 5.0 mg/dL 07/09/22 Range/Units 11:48 WBC 23.8 H (4.8-10.8) x10^3/uL RBC 3.17 L (4.70-6.10) 10^6/uL Hgb TNP Hct TNP MCV TNP MCH TNP MCHC TNP RDW TNP Plt Count 159 (130-450) 10^3/uL MPV 10.8 (7.4-11.4) fL Neut # (Auto) Not Reportable Lymph # (Auto) Not Reportable [place] # (Auto) Not Reportable Eos # (Auto) Not Reportable Baso # (Auto) Not Reportable Absolute Nucleated RBC Not Reportable Total Counted 100 Band Neuts % (Manual) 11 H (0 - 10) % Abnorm Lymph % (Manual) 0 % Metamyelocytes % 2 H ( - 0) % Nucleated RBC % Not Reportable Neutrophils # (Manual) 21.7 H (1.5-6.6) 10^3/uL Lymphocytes # (Manual) 1.0 L (1.5-3.5) 10^3/uL Monocytes # (Manual) 0.7 (0.0-1.0) 10^3/uL Eosinophils # (Manual) 0.0 (0-0.7) 10^3/uL Basophils # (Manual) 0.0 (0-0.1) 10^3/uL Differential Comment MANUAL DIFFERENTIAL Manual Slide Review Indicated WBC Morphology 3+ TOXIC GRANULATION (NORMAL) Platelet Estimate NORMAL (130-450,000) (NORMAL) Platelet Morphology PLATELET CLUMPING (NORMAL) RBC Morph Micro Appear 1+ TARGET CELLS (NORMAL) PT (9.9-12.6) secs INR (0.8-1.2) Sodium (135-145) mmol/L Potassium (3.5-5.0) mmol/L Chloride (101-111) mmol/L Carbon Dioxide (21-32) mmol/L Anion Gap (6-13) BUN (6-20) mg/dL Creatinine (0.6-1.2) mg/dL Estimated GFR (MDRD) (>89) Glucose (70-100) mg/dL POC Whole Bld Glucose (70 - 100) mg/dL Calcium (8.5-10.3) mg/dL Magnesium (1.7-2.8) mg/dL Total Bilirubin (0.2-1.0) mg/dL AST (10-42) IU/L ALT (10-60) IU/L Alkaline Phosphatase (42-121) IU/L Ammonia (7-35) umol/L Total Protein (6.7-8.2) g/dL Albumin (3.2-5.5) g/dL Globulin (2.1-4.2) g/dL Albumin/Globulin Ratio (1.0-2.2) Lipase (22-51) U/L Urine Color Urine Clarity (CLEAR) Urine pH (5.0-7.5) PH Ur Specific [place] (1.002-1.030) Urine Protein (NEGATIVE) mg/dL Urine Glucose (UA) (NEGATIVE) mg/dL Urine Ketones (NEGATIVE) mg/dL Urine Occult Blood (NEGATIVE) Urine Nitrite (NEGATIVE) Urine Bilirubin (NEGATIVE) Urine Urobilinogen (NORMAL) E.U./dL Ur Leukocyte Esterase (NEGATIVE) Ur Microscopic Review Urine Culture Comments Nasal Adenovirus (PCR) Nasal B. parapertussis DNA (PCR) Nasal Coronavir 229E PCR Nasal Coronavir HKU1 PCR Nasal Coronavir NL63 PCR Nasal Coronavir OC43 PCR Nasal Enterovir/Rhinovir PCR Nasal Influenza B PCR Nasal Influenza A PCR Nasal Parainfluen 1 PCR Nasal Parainfluen 2 PCR Nasal Parainfluen 3 PCR Nasal Parainfluen 4 PCR Nasal RSV (PCR) Nasal B.pertussis DNA PCR Nasal C.pneumoniae (PCR) Rico Human Metapneumo PCR Nasal M.pneumoniae (PCR) Nasal SARS-CoV-2 (PCR) Ethyl Alcohol mg/dL - Diagnostic Imaging Diagnostic Imaging Results: positive: Final report reviewed Diagnostic Imaging Comments: 07/09/22 MRCP Findings -Pancreas and biliary system: intra- and extra-hepatic biliary ducts are non dilated. Pancrease is normal in morphology on the right but laterally, on theleft, at the pancreatic tail there is an ovoid region of heterogenous enhancement, measuring approximately 4.4cm transverse and 3.1cm AP and craniocaudad., without adjacent soft tissue edema. Pancreatic duct is normal in caliber, without developmental anomalies. Gallbladder demonstrates mild prominence of the mucosal enhancement, but a discrete gallbladder mass or gallstone within the gallbladder lumen is not found -other solid organs: liver and spleen are enlarged with the craniocaudad length of liver 26.9cm and that of the spleen 17.8cm. The liver is heterogeneous, globally enlarged demonstrates heterogeneous fatty infiltration, and lobular capsular morphology, without definite malignant masses within. No adrenal nodules. Both kidney are normal in size, without hydronephrosis. -Nodes and vessels: no retroperitoneal or mesenteric adenopathy by size criteria. Aorta and inferior vena cava are normal is size. -Bowel and peritoneum: Unenhanced bowel loops are normal in caliber. Extensive ascites which extends into the pelvis is noted. Also noted are several areas of what appears to be anterior omental mild thickening and lateral left upper quadrant peritoneal enhancement and slight thickening. Both inflammatory and neoplastic etiology should be considered. -Lungs bases: no basal pleural effusions. Heart size is normal. -Bones and soft tissues: no ventral hernias. Bone marrow is of normal overall signal. -Impression: -The cause of reported painless jaundice does not appear to be biliary ductal obstruction. there is hepatosplenomegaly and prominent heterogeneity of the hepatic parenchyma in addition to moderately sever ascites. Hepatic insufficiency is suspected as etiology of juandice in this clinical circums tance. -There is abnormality of the pancreatic tail as discussed above, which could represent coincidental identification of a pancreatic malignancy. However, pancreatitis and pancreatic necrosis is that area could also produce this appearance. -It may be warranted to obtain elective paracentesis for cytology assessment. Discrete peritoneal masses are not seen but there is a slight degree of p eritoneal enhancement at several areas within the left upper quadrant laterally and the omentum at the anterior upper epigastrium area appears slightly prominent in thickness. Assessment/Plan - Problem List (1) Hypokalemia Impression: Hypokalemia K+ 2.1 this am continues, suspect this is due to pt's poor po intake and nausea and vomiting over the last 2 weeks. Plan: potassium rider in NS, pt is hyponatremic as well. Goal is K 3.5. Recheck K at 1600 today. (2) Hyponatremia Impression: Na of 123 this am, this is improved over his admit Na 120, suspect this is due to his poor po intake and nausea and vomiting over the last two weeks. Plan: NS infusion stopped, his rate of increase is good, I don't want to go to fast, goal of Na 125 by tonight. Recheck BMP at 1600 today. (3) Liver failure Impression: AST 181, ALT 68, AST/ALT ratio>2,total bilirubin 27.4 on admit. This morning AST 170, ALT 65, PT 23.2, INR 2.2, Physician Relations Representative 0.7, Maddrey score 72.5, at greater than 32 may benefit from glucocorticoid therapy. MELD score 32 points. 3 month mortality is 52.6% Plan: high Maddrey and MELD scores support use of glucoccorticoids for this patient, prednisone 40mg po daily. Qualifiers: Liver failure chronicity: acute Hepatic coma status: without hepatic coma Qualified Code(s): K72.00 - Acute and subacute hepatic failure without coma (4) Hypertension Impression: He has history of HTN but remains hypotensive this admit. Suspect this is due to his recent 2 weeks of nausea and vomiting. Plan: continue to hold home HTN meds. Will reassess tomorrow. Qualifiers: Hypertension type: primary hypertension Qualified Code(s): I10 - Essential (primary) hypertension (5) Diabetes Impression: takes metformin at home, will not take this inpatient due to risk of acidosis. BG 119 this am Plan: continue sub q insulin to manage BG, Hgb A1C 4.7 Qualifiers: Diabetes mellitus type: type 2 Diabetes mellitus care home insulin use: without care home use Diabetes mellitus complication status: with neurologic complications Diabetes mellitus complication detail: with polyneuropathy Qualified Code(s): E11.42 - Type 2 diabetes mellitus with diabetic polyneuropathy (6) Liver cirrhosis Impression: hx of heavy alcohol use, elevated total billirubin, AST/ALT>2. MRCP from yesterday, see above in objective section for MRCP results and impression. plan: CT and MRCP impressions support heavy alcohol use as the reason for liver cirrhosis. supportive care, hydration, correction of electrolyte abnormalities. 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
[2022-07-10] MEDS ORDERED: POTASSIUM CHLORIDE INJ 40 MEQ in SODIUM CHLORIDE 0.9% 500 ML IV ONE (07:46)
[2022-07-10 07:49] LABS: DIFFERENTIAL COMMENT MANUAL DIFFERENTIAL; PLATELET ESTIMATE, MANUAL NORMAL (130-450,000) (NORMAL); PLATELET MORPHOLOGY NORMAL APPEARANCE (NORMAL)
[2022-07-10] MEDS: INSULIN LISPRO 300 UNIT/3 ML PEN SUBQ SCH ×4 (08:24→21:26)
[2022-07-10] MEDS: POTASSIUM CHLORIDE 20 MEQ TABLET PO SCH ×3 (08:35→17:03)
[2022-07-10] MEDS ORDERED: THIAMINE 100 MG TABLET PO SCH (09:00)
[2022-07-10 09:28] LABS: ESTIMATED AVERAGE GLUCOSE 88 mg/dL (70-100); HEMOGLOBIN A1c% 4.7 % (4.27-6.07)
[2022-07-10] MEDS: predniSONE 20 MG TABLET PO SCH (11:45)
[2022-07-10] MEDS ORDERED: POTASSIUM CHLORIDE INJ 40 MEQ in SODIUM CHLORIDE 0.9% 500 ML IV SCH (16:00)
[2022-07-10] MEDS: THIAMINE 100 MG TABLET PO SCH (16:16)
[2022-07-10] MEDS: PRENATAL VITAMIN TABLET PO SCH (16:16)
--- NOTE | 2022-07-10 16:39 | PROVIDER PROGRESS NOTE ---
Objective - Vital Signs/Intake & Output Vital Signs: Vital Signs x48h Temp Pulse Resp BP BP Pulse Ox 07/10/22 16:10 36.5 C 69 20 107/67 94 07/10/22 11:29 36.5 C 69 24 101/51 L 94 Intake & Output: Intake & Output 07/07/22 07/08/22 07/09/22 07/10/22 23:59 23:59 23:59 23:59 Intake Total 2231.667 2198.333 Output Total 300 775 Balance 8490.890 2710.333 - Lab Results Fish Bones: 07/10/22 06:06 07/10/22 14:29 Other Labs: Lab Results x24hrs 07/10/22 07/10/22 07/10/22 Range/Units 14:29 11:25 08:03 WBC (4.8-10.8) x10^3/uL RBC (4.70-6.10) 10^6/uL Hct (42.0-52.0) % RDW (12.0-15.0) % Plt Count (130-450) 10^3/uL MPV (7.4-11.4) fL Neut # (Auto) Lymph # (Auto) [place] # (Auto) Eos # (Auto) Baso # (Auto) Absolute Nucleated RBC Total Counted Band Neuts % (Manual) (0 - 10) % Abnorm Lymph % (Manual) % Nucleated RBC % Neutrophils # (Manual) (1.5-6.6) 10^3/uL Lymphocytes # (Manual) (1.5-3.5) 10^3/uL Monocytes # (Manual) (0.0-1.0) 10^3/uL Eosinophils # (Manual) (0-0.7) 10^3/uL Basophils # (Manual) (0-0.1) 10^3/uL Differential Comment Platelet Estimate (NORMAL) Platelet Morphology (NORMAL) RBC Morph Micro Appear (NORMAL) PT (9.9-12.6) secs INR (0.8-1.2) Sodium (135-145) mmol/L Potassium 2.7 L (3.5-5.0) mmol/L Chloride (101-111) mmol/L Carbon Dioxide (21-32) mmol/L Anion Gap (6-13) BUN (6-20) mg/dL Creatinine (0.6-1.2) mg/dL Estimated GFR (MDRD) (>89) Glucose (70-100) mg/dL POC Whole Bld Glucose 179 H 132 H (70 - 100) mg/dL Estimat Average Glucose (70-100) mg/dL Hemoglobin A1c % (4.27-6.07) % Calcium (8.5-10.3) mg/dL Total Bilirubin (0.2-1.0) mg/dL AST (10-42) IU/L ALT (10-60) IU/L Alkaline Phosphatase (42-121) IU/L Total Protein (6.7-8.2) g/dL Albumin (3.2-5.5) g/dL Globulin (2.1-4.2) g/dL Albumin/Globulin Ratio (1.0-2.2) 07/10/22 07/10/22 07/10/22 Range/Units 06:06 06:06 06:06 WBC 20.1 H (4.8-10.8) x10^3/uL RBC 2.81 L (4.70-6.10) 10^6/uL Hct 30.5 L (42.0-52.0) % RDW 14.7 (12.0-15.0) % Plt Count 148 (130-450) 10^3/uL MPV 10.0 (7.4-11.4) fL Neut # (Auto) Not Reportable Lymph # (Auto) Not Reportable [place] # (Auto) Not Reportable Eos # (Auto) Not Reportable Baso # (Auto) Not Reportable Absolute Nucleated RBC Not Reportable Total Counted 100 Band Neuts % (Manual) 0 (0 - 10) % Abnorm Lymph % (Manual) 0 % Nucleated RBC % Not Reportable Neutrophils # (Manual) 15.7 H (1.5-6.6) 10^3/uL Lymphocytes # (Manual) 1.8 (1.5-3.5) 10^3/uL Monocytes # (Manual) 2.0 H (0.0-1.0) 10^3/uL Eosinophils # (Manual) 0.6 (0-0.7) 10^3/uL Basophils # (Manual) 0.0 (0-0.1) 10^3/uL Differential Comment MANUAL DIFFERENTIAL Platelet Estimate NORMAL (130-450,000) (NORMAL) Platelet Morphology NORMAL APPEARANCE (NORMAL) RBC Morph Micro Appear 1+ TARGET CELLS (NORMAL) PT (9.9-12.6) secs INR (0.8-1.2) Sodium 123 L (135-145) mmol/L Potassium 2.1 L* (3.5-5.0) mmol/L Chloride 84 L (101-111) mmol/L Carbon Dioxide 31 (21-32) mmol/L Anion Gap 8.0 (6-13) BUN 21 H (6-20) mg/dL Creatinine 0.7 (0.6-1.2) mg/dL Estimated GFR (MDRD) 120 (>89) Glucose 119 H (70-100) mg/dL POC Whole Bld Glucose (70 - 100) mg/dL Estimat Average Glucose 88 (70-100) mg/dL Hemoglobin A1c % 4.7 (4.27-6.07) % Calcium 7.2 L (8.5-10.3) mg/dL Total Bilirubin 23.7 H (0.2-1.0) mg/dL AST 170 H (10-42) IU/L ALT 65 H (10-60) IU/L Alkaline Phosphatase 199 H (42-121) IU/L Total Protein 5.4 L (6.7-8.2) g/dL Albumin 1.4 L (3.2-5.5) g/dL Globulin 4.0 (2.1-4.2) g/dL Albumin/Globulin Ratio 0.4 L (1.0-2.2) 07/09/22 07/09/22 07/09/22 Range/Units 21:07 20:45 17:05 WBC (4.8-10.8) x10^3/uL RBC (4.70-6.10) 10^6/uL Hct (42.0-52.0) % RDW (12.0-15.0) % Plt Count (130-450) 10^3/uL MPV (7.4-11.4) fL Neut # (Auto) Lymph # (Auto) [place] # (Auto) Eos # (Auto) Baso # (Auto) Absolute Nucleated RBC Total Counted Band Neuts % (Manual) (0 - 10) % Abnorm Lymph % (Manual) % Nucleated RBC % Neutrophils # (Manual) (1.5-6.6) 10^3/uL Lymphocytes # (Manual) (1.5-3.5) 10^3/uL Monocytes # (Manual) (0.0-1.0) 10^3/uL Eosinophils # (Manual) (0-0.7) 10^3/uL Basophils # (Manual) (0-0.1) 10^3/uL Differential Comment Platelet Estimate (NORMAL) Platelet Morphology (NORMAL) RBC Morph Micro Appear (NORMAL) PT 23.2 H (9.9-12.6) secs INR 2.2 H (0.8-1.2) Sodium 121 L (135-145) mmol/L Potassium 2.1 L* (3.5-5.0) mmol/L Chloride 79 L* (101-111) mmol/L Carbon Dioxide 30 (21-32) mmol/L Anion Gap 12.0 (6-13) BUN 24 H (6-20) mg/dL Creatinine 0.9 (0.6-1.2) mg/dL Estimated GFR (MDRD) 90 (>89) Glucose 202 H (70-100) mg/dL POC Whole Bld Glucose 220 H (70 - 100) mg/dL Estimat Average Glucose (70-100) mg/dL Hemoglobin A1c % (4.27-6.07) % Calcium 7.5 L (8.5-10.3) mg/dL Total Bilirubin (0.2-1.0) mg/dL AST (10-42) IU/L ALT (10-60) IU/L Alkaline Phosphatase (42-121) IU/L Total Protein (6.7-8.2) g/dL Albumin (3.2-5.5) g/dL Globulin (2.1-4.2) g/dL Albumin/Globulin Ratio (1.0-2.2) Assessment/Plan - Problem List (3) Liver failure Qualifiers: Liver failure chronicity: acute Hepatic coma status: without hepatic coma Qualified Code(s): K72.00 - Acute and subacute hepatic failure without coma (4) Hypertension Qualifiers: Hypertension type: primary hypertension Qualified Code(s): I10 - Essential (primary) hypertension (5) Diabetes Qualifiers: Diabetes mellitus type: type 2 Diabetes mellitus oysterman insulin use: without oysterman use Diabetes mellitus complication status: with neurologic complications Diabetes mellitus complication detail: with polyneuropathy Qualified Code(s): E11.42 - Type 2 diabetes mellitus with diabetic polyneuropathy (6) Liver cirrhosis Qualifiers: Hepatic cirrhosis type: alcoholic cirrhosis Ascites presence: with ascites Qualified Code(s): K70.31 - Alcoholic cirrhosis of liver with ascites
[2022-07-11] MEDS: SODIUM CHLORIDE FLUSH 0.9% 10 ML SYRINGE IVP SCH ×3 (01:00→17:02)
[2022-07-11 06:15] LABS: BASOPHILS % (AUTO) 0.7 %; EOSINOPHILS % (AUTO) 0.1 %; HCT - HEMATOCRIT 34.5 % (42.0-52.0); HGB - HEMOGLOBIN 12.9 g/dL (14.0-18.0); LYMPHOCYTES % (AUTO) 4.2 %; MEAN CORPUSCULAR HGB CONC 37.4 g/dL (32.0-36.0); MEAN CORPUSCULAR VOLUME 109.5 fL (80.0-94.0); MEAN PLATELET VOLUME 10.7 fL (7.4-11.4); MONOCYTES % (AUTO) 3.3 %; NEUTROPHILS % (AUTO) 84.2 %; PLT - PLATELET COUNT 176 10^3/uL (130-450); RED BLOOD COUNT 3.15 10^6/uL (4.70-6.10); RED CELL DISTRIBUTION WIDTH 15.1 % (12.0-15.0); WHITE BLOOD COUNT 25.7 x10^3/uL (4.8-10.8)
[2022-07-11 06:41] LABS: ABNORMAL LYMPHS % (MANUAL) 0 %
[2022-07-11 06:44] LABS: BAND NEUTROPHILS % (MANUAL) 2 %; EOSINOPHILS # (MANUAL) 0.3 10^3/uL (0-0.7); LYMPHOCYTES # (MANUAL) 0.8 10^3/uL (1.5-3.5); LYMPHOCYTES % (MANUAL) 3 %; MONOCYTES # (MANUAL) 0.3 10^3/uL (0.0-1.0); MYELOCYTES % (MANUAL) 1 %; NEUTROPHILS # (MANUAL) 24.2 10^3/uL (1.5-6.6)
[2022-07-11 06:46] LABS: DIFFERENTIAL COMMENT MANUAL DIFFERENTIAL; PLATELET ESTIMATE, MANUAL NORMAL (130-450,000) (NORMAL); PLATELET MORPHOLOGY NORMAL APPEARANCE (NORMAL); WBC MORPHOLOGY (MULTIPLE) NORMAL APPEARANCE (NORMAL)
[2022-07-11 06:49] LABS: ALBUMIN 1.5 g/dL (3.2-5.5); ALBUMIN/GLOBULIN RATIO 0.3 (1.0-2.2); CREATININE 0.6 mg/dL (0.6-1.2); TOTAL PROTEIN 5.8 g/dL (6.7-8.2)
--- NOTE | 2022-07-11 07:52 | PROVIDER PROGRESS NOTE ---
Progress Note Subjective - Prog Note Date Prog Note Date: 07/10/22 Prog Note Time: 07:34 - Subjective Subjective: I encounter Hussain in his room on day 3 of his hospitalization. He is lying in bed and greets me by name when I enter. He reports he vomitted up a small amount of his dinner last night but overall he feels much better and has not had issues with nausea/ vomitting. He thinks he just ate too fast last night. He denies fevers, chills, night sweats, no temperature, when I press on his belly he describes pressure but no pain. He has a cough he describes as his "little smoker's hack." This was present on admission and remains unchanged. His WBC is 25.7 this am, no signs or symptoms of infection. Labs continue to improve, prednisone started. Current Medications - Current Medications Current Medications: Insulin Human Lispro (Insulin Lispro 300 Unit/3 Ml Pen) 1 - 5 unit SUBQ 0800,1200,1700,2100 [facility]; Protocol Last Admin: 07/10/22 21:26 Dose: 2 unit Ondansetron HCl (Ondansetron Odt 4 Mg Tablet) 4 mg TL Q6HR PRN PRN Reason: Nausea / Vomiting Ondansetron HCl (Ondansetron 4 Mg/2 Ml Vial) 4 mg IVP Q6HR PRN PRN Reason: Nausea / Vomiting Oxycodone HCl (Oxycodone 5 Mg Tablet) 5 mg PO Q4HR PRN PRN Reason: Pain 5 to 7 Potassium Chloride (Potassium Chloride 20 Meq Tablet) 20 meq PO TIDWM [facility] Last Admin: 07/10/22 17:03 Dose: 20 meq Prednisone (Prednisone 20 Mg Tablet) 40 mg PO DAILYWM [facility] Last Admin: 07/10/22 11:45 Dose: 40 mg Multivit/Folic Acid/Iron ( Vitamin Tablet) 1 tab PO DAILYWM [facility] Last Admin: 07/10/22 16:16 Dose: 1 tab Sodium Chloride (Sodium Chloride Flush 0.9% 10 Ml Syringe) 10 ml IVP PRN PRN PRN Reason: NEEDED PER PROVIDER ORDERS Sodium Chloride (Sodium Chloride Flush 0.9% 10 Ml Syringe) 10 ml IVP 0100,0900,1700 [facility] Last Admin: 07/11/22 01:00 Dose: 10 ml Thiamine HCl (Thiamine 100 Mg Tablet) 100 mg PO DAILY [facility] Last Admin: 07/10/22 16:16 Dose: 100 mg Objective - Vital Signs/Intake & Output Vital Signs: Vital Signs Temp 36.4 C L 07/11/22 05:20 Pulse 90 07/11/22 05:20 Resp 18 07/11/22 05:20 BP 98/53 L 07/11/22 05:20 Pulse Ox 94 07/11/22 05:20 O2 Flow Rate Intake & Output 07/10/22 07/10/22 07/11/22 11:59 23:59 11:59 Intake Total 8782.240 9344.667 Output Total 600 475 425 Balance 161.271 5010.667 -425 Intake: Intake, IV Amount 2757.079 0433.667 Potassium Chlor 10 Meq/ 300 100 ml 10 meq In 100 ml @ 100 mls/hr IV Q1H [facility] Rx #:[id number] Potassium Chloride Inj 40 520 meq In Sodium Chloride 0 .9% 500 ml @ 100 mls/hr IV .[id number] [facility] Rx#: [id number] Potassium Chloride Inj 40 481.667 meq In Sodium Chloride 0 .9% 500 ml @ 100 mls/hr IV ONCE ONE Rx#:[id number] Sodium Chloride 0.9% 1, 816.666 000 ml @ 100 mls/hr IV . Q10H [facility] Rx#:[id number] Oral 180 690 Output: Urine 600 475 425 Other: % Meal consumed 90% 100% - Objective General Appearance: positive: Severly jaundiced man recumbant in bed, wears glasses Eyes Bilateral: positive: Other (scleral icterus) Eyes: OU Scleral icterus ENT: positive: Dry mucous membranes Neck: positive: Nml inspection Respiratory: positive: Chest non-tender Cardiovascular: positive: Regular rate & rhythm Peripheral Pulses: 1+ Radial (R), 1+ Radial (L), 1+ Posterior tibialis (R), 1+ Posterior tibialis (L) Abdomen: positive: Non-tender, Hepatomegaly, positive fluid wave Back: positive: Nml inspection Skin: positive: Other (jaundice) Extremities: positive: Trace pedal edema Neurologic/Psychiatric: positive: Oriented x3 - Lab Results Laboratory Tests 07/11/22 07/11/22 07/11/22 05:37 05:37 07:36 WBC 25.7 H RBC 3.15 L Hgb 12.9 L Hct 34.5 L MCV 109.5 H MCH 41.0 H MCHC 37.4 H RDW 15.1 H Plt Count 176 Sodium 127 L Potassium 3.0 L Chloride 90 L Carbon Dioxide 29 Anion Gap 8.0 BUN 19 Creatinine 0.6 Estimated GFR (MDRD) 144 Glucose 170 H POC Whole Bld Glucose 161 H Calcium 8.0 L Total Bilirubin 25.0 H AST 176 H ALT 75 H Alkaline Phosphatase 220 H Total Protein 5.8 L Albumin 1.5 L Globulin 4.3 H Albumin/Globulin Ratio 0.3 L - Diagnostic Imaging Diagnostic Imaging Results: positive: Final report reviewed Diagnostic Imaging Comments: 07/09/22 MRCP Findings -Pancreas and biliary system: intra- and extra-hepatic biliary ducts are non dilated. Pancrease is normal in morphology on the right but laterally, on theleft, at the pancreatic tail there is an ovoid region of heterogenous enhancement, measuring approximately 4.4cm transverse and 3.1cm AP and craniocaudad., without adjacent soft tissue edema. Pancreatic duct is normal in caliber, without developmental anomalies. Gallbladder demonstrates mild prominence of the mucosal enhancement, but a discrete gallbladder mass or gallstone within the gallbladder lumen is not found -other solid organs: liver and spleen are enlarged with the craniocaudad length of liver 26.9cm and that of the spleen 17.8cm. The liver is heterogeneous, g lobally enlarged demonstrates heterogeneous fatty infiltration, and lobular capsular morphology, without definite malignant masses within. No adrenal nodules. Both kidney are normal in size, without hydronephrosis. -Nodes and vessels: no retroperitoneal or mesenteric adenopathy by size criteria. Aorta and inferior vena cava are normal is size. -Bowel and peritoneum: Unenhanced bowel loops are normal in caliber. Extensive ascites which extends into the pelvis is noted. Also noted are several areas of what appears to be anterior omental mild thickening and lateral left upper quadrant peritoneal enhancement and slight thickening. Both inflammatory and neoplastic etiology should be considered. -Lungs bases: no basal pleural effusions. Heart size is normal. -Bones and soft tissues: no ventral hernias. Bone marrow is of normal overall signal. -Impression: -The cause of reported painless jaundice does not appear to be biliary ductal obstruction. there is hepatosplenomegaly and prominent heterogeneity of the hepatic parenchyma in addition to moderately sever ascites. Hepatic insufficiency is suspected as etiology of juandice in this clinical circumstance. -There is abnormality of the pancreatic tail as discussed above, which could represent coincidental identification of a pancreatic malignancy. However, pancreatitis and pancreatic necrosis is that area could also produce this appearance. -It may be warranted to obtain elective paracentesis for cytology assessment. Discrete peritoneal masses are not seen but there is a slight degree of peritoneal enhancement at several areas within the left upper quadrant laterally and the omentum at the anterior upper epigastrium area appears slightly prominent in thickness. Assessment/Plan - Problem List (1) Hypokalemia Impression: Hypokalemia, K+ 3.0 this am, suspect this is due to pt's poor po intake and nausea and vomiting over the last 2 weeks. Plan: potassium rider in NS, pt is hyponatremic as well. Goal is K 3.5, recheck K this evening. (2) Hyponatremia Impression: Na of 127 this am, this is improved over his admit Na 120, suspect this is due to his poor po intake and nausea and vomiting over the last two weeks. Plan: NS infusion stopped, his rate of increase is good. Recheck BMP this evening (3) Liver failure Impression: AST 181, ALT 68, AST/ALT ratio>2,total bilirubin 27.4 on admit. This morning AST 176, ALT 57, Band [place]ail[place] 0.6, Maddrey score 72.5, at greater than 32 may benefit from glucocorticoid therapy. MELD score 32 points. 3 month mortality is 52.6%. Labs slightly improved this morning. Plan: high Maddrey and MELD scores support use of glucoccorticoids for this patient, prednisone 40mg po daily, recheck PT and INR to update maddrey score prior to discharge, will start spironolactone for discharge. Qualifiers: Liver failure chronicity: acute Hepatic coma status: without hepatic coma Qualified Code(s): K72.00 - Acute and subacute hepatic failure without coma (4) Hypertension Impression: He has history of HTN but remains hypotensive this admit. Suspect this is due to his recent 2 weeks of nausea and vomiting. Plan: continue to hold home HTN meds. Will reassess tomorrow. Qualifiers: Hypertension type: primary hypertension Qualified Code(s): I10 - Essential (primary) hypertension (5) Diabetes Impression: takes metformin at home, will not take this inpatient due to risk of acidosis. BG 170 this am, most likely this is because of the steroids he received Plan: continue sub q insulin to manage BG, Hgb A1C 4.7, given A1C 4.7 may be able to manage BG with diet as outpatient Qualifiers: Diabetes mellitus type: type 2 Diabetes mellitus intermission coordinator insulin use: without prison use Diabetes mellitus complication status: with neurologic complications Diabetes mellitus complication detail: with polyneuropathy Qualified Code(s): E11.42 - Type 2 diabetes mellitus with diabetic polyneuropathy (6) Liver cirrhosis Impression: hx of heavy alcohol use, elevated total billirubin, AST/ALT>2 on admit. MRCP from yesterday, see above in objective section for MRCP results and impression. plan: CT and MRCP impressions support heavy alcohol use as the reason for liver cirrhosis. supportive care, hydration, correction of electrolyte abnormalities. 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
[2022-07-11] MEDS: INSULIN LISPRO 300 UNIT/3 ML PEN SUBQ SCH ×4 (07:58→21:17)
[2022-07-11] MEDS: POTASSIUM CHLORIDE 20 MEQ TABLET PO SCH ×3 (08:01→17:00)
[2022-07-11] MEDS: PRENATAL VITAMIN TABLET PO SCH (08:01)
[2022-07-11] MEDS: THIAMINE 100 MG TABLET PO SCH (08:01)
[2022-07-11] MEDS: predniSONE 20 MG TABLET PO SCH (08:01)
[2022-07-11] MEDS: NICOTINE 7 MG PATCH TOP SCH (10:15)
[2022-07-11] MEDS: SPIRONOLACTONE 25 MG TABLET PO SCH (11:41)
[2022-07-11] MEDS: POTASSIUM CHLORIDE INJ 10 MEQ in SODIUM CHLORIDE 0.9% 100ML 100 ML IV SCH ×4 (12:30→16:58)
[2022-07-11 16:14] LABS: MUDS CUTOFF CONCENTRATIONS CUTOFF CONC BELOW:
[2022-07-11 16:36] LABS: AMPHETAMINE SCREEN,URINE NEGATIVE (NEGATIVE); BARBITURATE SCREEN,UR NEGATIVE (NEGATIVE); BENZODIAZEPINES SCREEN, URINE NEGATIVE (NEGATIVE); COCAINE SCREEN URINE NEGATIVE (NEGATIVE); METHADONE SCREEN, URINE NEGATIVE (NEGATIVE); METHAMPHETAMINES SCREEN, URINE NEGATIVE (NEGATIVE); OPIATE SCREEN, URINE NEGATIVE (NEGATIVE); OXYCODONE SCREEN, URINE NEGATIVE (NEGATIVE); PROPOXYPHENE SCREEN, URINE NEGATIVE (NEGATIVE); THC CANNABINOID SCREEN, URINE POSITIVE (NEGATIVE); TRICYCLIC ANTIDEPRESSANT,URINE NEGATIVE (NEGATIVE)
[2022-07-12] MEDS: SODIUM CHLORIDE FLUSH 0.9% 10 ML SYRINGE IVP SCH ×3 (01:00→17:13)
[2022-07-12 01:07] LABS: HBsAG SCREEN Negative (Negative); HCV AB 0.1 s/co ratio (0.0-0.9); HEPATITIS B CORE IGM AB Negative (Negative)
[2022-07-12 05:00] LABS: EOSINOPHILS % (AUTO) 0.1 %; HGB - HEMOGLOBIN 12.9 g/dL (14.0-18.0); LYMPHOCYTES % (AUTO) 5.7 %; MEAN CORPUSCULAR HEMOGLOBIN 40.8 pg (27.0-31.0); MEAN CORPUSCULAR HGB CONC 36.9 g/dL (32.0-36.0); MEAN CORPUSCULAR VOLUME 110.8 fL (80.0-94.0); MEAN PLATELET VOLUME 10.4 fL (7.4-11.4); MONOCYTES % (AUTO) 3.8 %; NEUTROPHILS % (AUTO) 83.4 %; PLT - PLATELET COUNT 197 10^3/uL (130-450); RED BLOOD COUNT 3.16 10^6/uL (4.70-6.10); RED CELL DISTRIBUTION WIDTH 15.6 % (12.0-15.0); WHITE BLOOD COUNT 27.8 x10^3/uL (4.8-10.8)
[2022-07-12 05:06] LABS: INR 1.9 (0.8-1.2); PT - PROTHROMBIN TIME 20.6 secs (9.9-12.6)
[2022-07-12 05:10] LABS: ABNORMAL LYMPHS % (MANUAL) 0 %
[2022-07-12 05:11] LABS: BILIRUBIN,TOTAL 23.7 mg/dL (0.2-1.0); CALCIUM 8.2 mg/dL (8.5-10.3); CREATININE 0.6 mg/dL (0.6-1.2); POTASSIUM 3.5 mmol/L (3.5-5.0); TOTAL PROTEIN 5.9 g/dL (6.7-8.2)
[2022-07-12 05:12] LABS: ALBUMIN 1.6 g/dL (3.2-5.5); ALBUMIN/GLOBULIN RATIO 0.4 (1.0-2.2)
[2022-07-12 05:27] LABS: BAND NEUTROPHILS % (MANUAL) 5 %; EOSINOPHILS # (MANUAL) 0.3 10^3/uL (0-0.7); LYMPHOCYTES # (MANUAL) 1.7 10^3/uL (1.5-3.5); LYMPHOCYTES % (MANUAL) 6 %; METAMYELOCYTES % (MANUAL) 1 %; MONOCYTES # (MANUAL) 0.6 10^3/uL (0.0-1.0); MYELOCYTES % (MANUAL) 2 %; NEUTROPHILS # (MANUAL) 24.5 10^3/uL (1.5-6.6)
[2022-07-12 05:28] LABS: DIFFERENTIAL COMMENT MANUAL DIFFERENTIAL; PLATELET ESTIMATE, MANUAL NORMAL (130-450,000) (NORMAL); PLATELET MORPHOLOGY NORMAL APPEARANCE (NORMAL); WBC MORPHOLOGY (MULTIPLE) NORMAL APPEARANCE (NORMAL)
[2022-07-12] MEDS: INSULIN LISPRO 300 UNIT/3 ML PEN SUBQ SCH ×4 (08:13→20:24)
[2022-07-12] MEDS: PRENATAL VITAMIN TABLET PO SCH (08:13)
[2022-07-12] MEDS: predniSONE 20 MG TABLET PO SCH (08:14)
[2022-07-12] MEDS: THIAMINE 100 MG TABLET PO SCH (08:14)
[2022-07-12] MEDS: POTASSIUM CHLORIDE 20 MEQ TABLET PO SCH ×3 (08:14→16:48)
[2022-07-12] MEDS: SPIRONOLACTONE 25 MG TABLET PO SCH (08:14)
[2022-07-12] MEDS: NICOTINE 7 MG PATCH TOP SCH (08:15)
[2022-07-12] MEDS: LACTULOSE 10 GM /15 ML UDC PO SCH (12:45)
--- NOTE | 2022-07-12 16:07 | PROVIDER PROGRESS NOTE ---
Assessment/Plan - Problem List (1) Hyponatremia Assessment/Plan: Na of 131 this am, this is improved over his admit Na 120, and we suspect this is due to his poor po intake and nausea and vomiting over the last two weeks and from liver cirrhosis. Plan: NS infusion stopped, his rate of Na increase is good. Follow BMP daily (2) Leukocytosis His white blood count has been elevated since admission (23>> 20>> 25 yesterday>> 27.8 today). Steroids were started on 07/10. We expect some increase of WBCs from the steroids, however his WBC is very high at 27.8 today, and he also has recurrence of bandemia (11>> 0>> 2>> 5 today) There is no cough, urinalysis was negative, but he did not have any paracentesis and may have SBP Plan: Will order a diagnostic paracentesis (3) Liver failure Impression: AST 181, ALT 68, AST/ALT ratio>2,total bilirubin 27.4 on admit. This morning AST , ALT , Nat Instructor , Maddrey score 72.5>> today down to 61. At greater than 32 may benefit from glucocorticoid therapy. MELD score 32 points>> has improved to 26 points. 3 month mortality is 52.6%. Plan: high Maddrey and MELD scores support use of glucoccorticoids for this patient, prednisone 40mg po daily was started 07/10. Will recheck PT and INR to update maddrey score prior to discharge We have also started spironolactone before discharge. Paracentesis is planned Qualifiers: Liver failure chronicity: acute Hepatic coma status: without hepatic coma Qualified Code(s): K72.00 - Acute and subacute hepatic failure without coma (4) Liver cirrhosis with ascites Impression: He has hx of heavy alcohol use, elevated total billirubin, AST/ALT>2 on admit. MRCP from yesterday, see above in objective section for MRCP results and i mpression. CT and MRCP impressions support heavy alcohol use as the reason for liver cirrhosis. Plan: supportive care, hydration, correction of electrolyte abnormalities. 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 (6) Alcohoo abuse As per Hx at presentation Plan: He vehemently stated he is "done with that" We changed his IV thiamine to p.o. thiamine 500 mg daily. Today we will decrease thiamine down to 100 mg a day (7) Hx of Hypertension Impression: He has history of HTN but remains hypotensive this admit. Suspect this is due to his recent 2 weeks of nausea and vomiting. Plan: continue to hold home HTN meds. Qualifiers: Hypertension type: primary hypertension Qualified Code(s): I10 - Essential (primary) hypertension (8) Hx of Diabetes Impression: He took metformin at home, we did not order this as inpatient due to risk of acidosis. BG are elevated, most likely this is because of the steroids he received Hgb came back at A1C 4.7 Plan: continue sub q insulin to manage BG, Given A1C of 4.7, he may be able to manage his blood glu with diet alone, as outpatient Qualifiers: Diabetes mellitus type: type 2 Diabetes mellitus senior genetic counselor insulin use: without senior living use Diabetes mellitus complication status: with neurologic complications Diabetes mellitus complication detail: with polyneuropathy Qualified Code(s): E11.42 - Type 2 diabetes mellitus with diabetic polyneuropathy (9) Hypokalemia Impression: Resolved with replacement I suspect this was due to pt's poor po intake and nausea and vomiting over the last 2 weeks. K+ 3.5 this am, Plan: Follow BMP daily - Current Meds Current Meds: Current Medications Generic Name Dose Route Start Last Admin Trade Name Freq PRN Reason Stop Dose Admin Insulin Human Lispro 1 - 9 unit 07/11/22 21:09 07/12/22 12:45 Insulin Lispro 300 Unit/3 Ml Pen SUBQ 5 unit 0800,1200,1700,2100 SHIRIN Administration Protocol Lactulose 10 gm 07/12/22 11:00 07/12/22 12:45 Lactulose 10 Gm /15 Ml Udc PO 10 gm DAILY SHIRIN Administration Nicotine 1 patch 07/11/22 10:00 07/12/22 08:15 Nicotine 7 Mg Patch TOP 1 patch DAILY SHIRIN Administration Potassium Chloride 20 meq 07/10/22 08:00 07/12/22 12:45 Potassium Chloride 20 Meq Tablet PO 20 meq TIDWM SHIRIN Administration Prednisone 40 mg 07/10/22 11:00 07/12/22 08:14 Prednisone 20 Mg Tablet PO 40 mg DAILYWM SHIRIN Administration Multivit/Folic Acid/Iron 1 tab 07/10/22 16:00 07/12/22 08:13 Vitamin Tablet PO 1 tab DAILYWM SHIRIN Administration Sodium Chloride 10 ml 07/09/22 14:38 07/11/22 12:30 Sodium Chloride Flush 0.9% 10 Ml Syringe IVP 10 ml PRN PRN Administration NEEDED PER PROVIDER ORDERS Sodium Chloride 10 ml 07/09/22 17:00 07/12/22 08:15 Sodium Chloride Flush 0.9% 10 Ml Syringe IVP 10 ml 0100,0900,1700 SHIRIN Administration Spironolactone 50 mg 07/11/22 11:00 07/12/22 08:14 Spironolactone 25 Mg Tablet PO 50 mg DAILY SHIRIN Administration Thiamine HCl 100 mg 07/10/22 16:00 07/12/22 08:14 Thiamine 100 Mg Tablet PO 100 mg DAILY SHIRIN Administration - Lab Result Fish Bone Diagrams: 07/12/22 04:31 07/12/22 04:31 - Additional Planning My Orders: My Active Orders 07/12/22 11:00 Lactulose [Enulose] 10 gm PO DAILY 07/13/22 05:00 PT WITH INR [COAG] DAILYLAB 07/13/22 08:00 Abdominal Paracentesis [US] Routine Subjective - Subjective Patient Reports: Feeling Better, Fatigue, Other (He has had no BM for 2 days.) Objective Vital Signs: Vital Signs - 24 hr 07/11/22 07/11/22 07/12/22 20:53 23:41 04:32 Temperature 36.5 C 36.5 C 36.4 C L Heart Rate [ 72 68 71 Brachial] Respiratory 18 18 18 Rate Blood Pressure 103/56 L 123/70 115/70 [Right Brachial artery] O2 Saturation 92 91 L 95 07/12/22 07/12/22 07/12/22 07:30 11:12 15:48 Temperature 36.4 C L 36.7 C 36.5 C Heart Rate [ 66 67 80 Brachial] Respiratory 18 20 18 Rate Blood Pressure 100/61 115/74 112/69 [Right Brachial artery] O2 Saturation 92 96 92 Oxygen O2 Source Room air I&O (Last 24 Hrs): Intake and Output Totals x24h 07/10/22 07/11/22 07/12/22 23:59 23:59 23:59 Intake Total 2988.333 1342.5 670 Output Total 1075 1525 400 Balance 1913.333 -182.5 270 General: Alert, Oriented x3 HEENT: Mucous membr. moist/pink, Other (Icteric) Neck: Supple Neuro: Alert, Other (No asterixis) Cardiovascular: Regular rate, No murmurs Respiratory: No respiratory distress, Breath sounds nml Abdomen: Other (Moderately distended, not tense, has fluid wave, no tenderness) Extremities: No clubbing, No edema Skin: No rashes (Yellow skin) - Results Results: Laboratory Results WBC 27.8 x10^3/uL (4.8-10.8) H 07/12/22 04:31 RBC 3.16 10^6/uL (4.70-6.10) L 07/12/22 04:31 Hgb 12.9 g/dL (14.0-18.0) L 07/12/22 04:31 Hct 35.0 % (42.0-52.0) L 07/12/22 04:31 MCV 110.8 fL (80.0-94.0) H 07/12/22 04:31 MCH 40.8 pg (27.0-31.0) H 07/12/22 04:31 MCHC 36.9 g/dL (32.0-36.0) H 07/12/22 04:31 RDW 15.6 % (12.0-15.0) H 07/12/22 04:31 Plt Count 197 10^3/uL (130-450) 07/12/22 04:31 MPV 10.4 fL (7.4-11.4) 07/12/22 04:31 Neut # (Auto) Not Reportable 07/12/22 04:31 Lymph # (Auto) Not Reportable 07/12/22 04:31 Bay # (Auto) Not Reportable 07/12/22 04:31 Eos # (Auto) Not Reportable 07/12/22 04:31 Baso # (Auto) Not Reportable 07/12/22 04:31 Absolute Nucleated RBC Not Reportable 07/12/22 04:31 Total Counted 100 07/12/22 04:31 Band Neuts % (Manual) 5 % (0-10) 07/12/22 04:31 Abnorm Lymph % (Manual) 0 % 07/12/22 04:31 Metamyelocytes % 1 % (-0) H 07/12/22 04:31 Myelocytes % 2 % (-0) H 07/12/22 04:31 Nucleated RBC % Not Reportable 07/12/22 04:31 Neutrophils # (Manual) 24.5 10^3/uL (1.5-6.6) H 07/12/22 04:31 Lymphocytes # (Manual) 1.7 10^3/uL (1.5-3.5) 07/12/22 04:31 Monocytes # (Manual) 0.6 10^3/uL (0.0-1.0) 07/12/22 04:31 Eosinophils # (Manual) 0.3 10^3/uL (0-0.7) 07/12/22 04:31 Basophils # (Manual) 0.0 10^3/uL (0-0.1) 07/12/22 04:31 Differential Comment MANUAL DIFFERENTIAL 07/12/22 04:31 Manual Slide Review Indicated 07/09/22 11:48 WBC Morphology NORMAL APPEARANCE (NORMAL) 07/12/22 04:31 Platelet Estimate NORMAL (130-450,000) (NORMAL) 07/12/22 04:31 Platelet Morphology NORMAL APPEARANCE (NORMAL) 07/12/22 04:31 RBC Morph Micro Appear 1+ HYPOCHROMASIA (NORMAL) 2+ MACROCYTOSIS (NORMAL) 1+ TARGET CELLS (NORMAL) 07/12/22 04:31 RBC Morph Micro Appear 1+ HYPOCHROMASIA (NORMAL) 2+ MACROCYTOSIS (NORMAL) 1+ TARGET CELLS (NORMAL) 07/12/22 04:31 RBC Morph Micro Appear 1+ HYPOCHROMASIA (NORMAL) 2+ MACROCYTOSIS (NORMAL) 1+ TARGET CELLS (NORMAL) 07/12/22 04:31 PT 20.6 secs (9.9-12.6) H 07/12/22 04:31 INR 1.9 (0.8-1.2) H 07/12/22 04:31 Sodium 131 mmol/L (135-145) L 07/12/22 04:31 Potassium 3.5 mmol/L (3.5-5.0) 07/12/22 04:31 Chloride 94 mmol/L (101-111) L 07/12/22 04:31 Carbon Dioxide 28 mmol/L (21-32) 07/12/22 04:31 Anion Gap 9.0 (6-13) 07/12/22 04:31 BUN 21 mg/dL (6-20) H 07/12/22 04:31 Creatinine 0.6 mg/dL (0.6-1.2) 07/12/22 04:31 Estimated GFR (MDRD) 144 (>89) 07/12/22 04:31 Glucose 185 mg/dL (70-100) H 07/12/22 04:31 POC Whole Bld Glucose 275 mg/dL (70 - 100) H 07/12/22 11:05 Estimat Average Glucose 88 mg/dL (70-100) 07/10/22 06:06 Hemoglobin A1c % 4.7 % (4.27-6.07) 07/10/22 06:06 Calcium 8.2 mg/dL (8.5-10.3) L 07/12/22 04:31 Magnesium 2.5 mg/dL (1.7-2.8) 07/09/22 11:48 Total Bilirubin 23.7 mg/dL (0.2-1.0) H 07/12/22 04:31 AST 168 IU/L (10-42) H 07/12/22 04:31 ALT 86 IU/L (10-60) H 07/12/22 04:31 Alkaline Phosphatase 216 IU/L (42-121) H 07/12/22 04:31 Ammonia 69.6 umol/L (7-35) H 07/12/22 09:34 Total Protein 5.9 g/dL (6.7-8.2) L 07/12/22 04:31 Albumin 1.6 g/dL (3.2-5.5) L 07/12/22 04:31 Globulin 4.3 g/dL (2.1-4.2) H 07/12/22 04:31 Albumin/Globulin Ratio 0.4 (1.0-2.2) L 07/12/22 04:31 Lipase 71 U/L (22-51) H 07/09/22 11:48 Urine Color DARK YELLOW 07/09/22 13:28 Urine Clarity CLEAR (CLEAR) 07/09/22 13:28 Urine pH 6.5 PH (5.0-7.5) 07/09/22 13:28 Ur Specific Pala <=1.005 (1.002-1.030) 07/09/22 13:28 Urine Protein NEGATIVE mg/dL (NEGATIVE) 07/09/22 13:28 Urine Glucose (UA) 100 mg/dL (NEGATIVE) H 07/09/22 13:28 Urine Ketones NEGATIVE mg/dL (NEGATIVE) 07/09/22 13:28 Urine Occult Blood NEGATIVE (NEGATIVE) 07/09/22 13:28 Urine Nitrite NEGATIVE (NEGATIVE) 07/09/22 13:28 Urine Bilirubin LARGE (NEGATIVE) H 07/09/22 13:28 Urine Urobilinogen 1 (NORMAL) E.U./dL (NORMAL) 07/09/22 13:28 Ur Leukocyte Esterase NEGATIVE (NEGATIVE) 07/09/22 13:28 Ur Microscopic Review NOT INDICATED 07/09/22 13:28 Urine Culture Comments NOT INDICATED 07/09/22 13:28 Nasal Adenovirus (PCR) NOT DETECTED 07/09/22 14:22 Nasal B. parapertussis DNA (PCR) NOT DETECTED 07/09/22 14:22 Nasal Coronavir 229E PCR NOT DETECTED 07/09/22 14:22 Nasal Coronavir HKU1 PCR NOT DETECTED 07/09/22 14:22 Nasal Coronavir NL63 PCR NOT DETECTED 07/09/22 14:22 Nasal Coronavir OC43 PCR NOT DETECTED 07/09/22 14:22 Nasal Enterovir/Rhinovir PCR NOT DETECTED 07/09/22 14:22 Nasal Influenza B PCR NOT DETECTED 07/09/22 14:22 Nasal Influenza A PCR NOT DETECTED 07/09/22 14:22 Nasal Parainfluen 1 PCR NOT DETECTED 07/09/22 14:22 Nasal Parainfluen 2 PCR NOT DETECTED 07/09/22 14:22 Nasal Parainfluen 3 PCR NOT DETECTED 07/09/22 14:22 Nasal Parainfluen 4 PCR NOT DETECTED 07/09/22 14:22 Nasal RSV (PCR) NOT DETECTED 07/09/22 14:22 Nasal B.pertussis DNA PCR NOT DETECTED 07/09/22 14:22 Nasal C.pneumoniae (PCR) NOT DETECTED 07/09/22 14:22 Rico Human Metapneumo PCR NOT DETECTED 07/09/22 14:22 Nasal M.pneumoniae (PCR) NOT DETECTED 07/09/22 14:22 Nasal SARS-CoV-2 (PCR) NOT DETECTED 07/09/22 14:22 Urine Opiates Screen NEGATIVE (NEGATIVE) 07/11/22 16:08 Ur Oxycodone Screen NEGATIVE (NEGATIVE) 07/11/22 16:08 Urine Methadone Screen NEGATIVE (NEGATIVE) 07/11/22 16:08 Ur Propoxyphene Screen NEGATIVE (NEGATIVE) 07/11/22 16:08 Ur Barbiturates Screen NEGATIVE (NEGATIVE) 07/11/22 16:08 Ur Tricyclics Screen NEGATIVE (NEGATIVE) 07/11/22 16:08 Ur Phencyclidine Scrn NEGATIVE (NEGATIVE) 07/11/22 16:08 Ur Amphetamine Screen NEGATIVE (NEGATIVE) 07/11/22 16:08 U Methamphetamines Scrn NEGATIVE (NEGATIVE) 07/11/22 16:08 U Benzodiazepines Scrn NEGATIVE (NEGATIVE) 07/11/22 16:08 Urine Cocaine Screen NEGATIVE (NEGATIVE) 07/11/22 16:08 U Cannabinoids Screen POSITIVE (NEGATIVE) H 07/11/22 16:08 Ethyl Alcohol < 5.0 mg/dL 07/09/22 11:48 Hepatitis A IgM Ab Positive (Negative) A 07/09/22 11:48 Hep Bs Antigen Negative (Negative) 07/09/22 11:48 Hep B Core IgM Ab Negative (Negative) 07/09/22 11:48 Hepatitis C Antibody 0.1 s/co ratio (0.0-0.9) 07/09/22 11:48 Hepatitis C Interp Comment (.) 07/09/22 11:48
[2022-07-13] MEDS: SODIUM CHLORIDE FLUSH 0.9% 10 ML SYRINGE IVP SCH ×3 (04:39→17:00)
[2022-07-13 04:48] LABS: BASOPHILS % (AUTO) 0.4 %; EOSINOPHILS % (AUTO) 0.1 %; HCT - HEMATOCRIT 32.8 % (42.0-52.0); LYMPHOCYTES % (AUTO) 5.4 %; MEAN CORPUSCULAR HEMOGLOBIN 40.8 pg (27.0-31.0); MEAN CORPUSCULAR HGB CONC 36.6 g/dL (32.0-36.0); MEAN CORPUSCULAR VOLUME 111.6 fL (80.0-94.0); MEAN PLATELET VOLUME 10.4 fL (7.4-11.4); MONOCYTES % (AUTO) 3.4 %; NEUTROPHILS % (AUTO) 86.6 %; PLT - PLATELET COUNT 180 10^3/uL (130-450); RED BLOOD COUNT 2.94 10^6/uL (4.70-6.10); RED CELL DISTRIBUTION WIDTH 15.9 % (12.0-15.0); WHITE BLOOD COUNT 28.5 x10^3/uL (4.8-10.8)
[2022-07-13 04:52] LABS: INR 1.8 (0.8-1.2); PT - PROTHROMBIN TIME 19.4 secs (9.9-12.6)
[2022-07-13 04:53] LABS: ABNORMAL LYMPHS % (MANUAL) 0 %; BAND NEUTROPHILS % (MANUAL) 0 %
[2022-07-13 05:07] LABS: LYMPHOCYTES # (MANUAL) 1.4 10^3/uL (1.5-3.5); LYMPHOCYTES % (MANUAL) 5 %; MONOCYTES # (MANUAL) 0.9 10^3/uL (0.0-1.0); MYELOCYTES % (MANUAL) 2 %; NEUTROPHILS # (MANUAL) 25.7 10^3/uL (1.5-6.6)
[2022-07-13 05:09] LABS: DIFFERENTIAL COMMENT MANUAL DIFFERENTIAL; PLATELET ESTIMATE, MANUAL NORMAL (130-450,000) (NORMAL); PLATELET MORPHOLOGY NORMAL APPEARANCE (NORMAL); WBC MORPHOLOGY (MULTIPLE) NORMAL APPEARANCE (NORMAL)
[2022-07-13 05:13] LABS: ALBUMIN 1.6 g/dL (3.2-5.5); ALBUMIN/GLOBULIN RATIO 0.4 (1.0-2.2); BILIRUBIN,TOTAL 20.3 mg/dL (0.2-1.0); CALCIUM 8.2 mg/dL (8.5-10.3); CREATININE 0.6 mg/dL (0.6-1.2); TOTAL PROTEIN 5.5 g/dL (6.7-8.2)
[2022-07-13] MEDS: INSULIN LISPRO 300 UNIT/3 ML PEN SUBQ SCH ×4 (08:57→20:43)
[2022-07-13] MEDS: PRENATAL VITAMIN TABLET PO SCH (08:57)
[2022-07-13] MEDS: SPIRONOLACTONE 25 MG TABLET PO SCH (08:58)
[2022-07-13] MEDS: LACTULOSE 10 GM /15 ML UDC PO SCH (08:58)
[2022-07-13] MEDS: predniSONE 20 MG TABLET PO SCH (08:59)
[2022-07-13] MEDS: POTASSIUM CHLORIDE 20 MEQ TABLET PO SCH ×3 (08:59→17:00)
[2022-07-13] MEDS: THIAMINE 100 MG TABLET PO SCH (08:59)
[2022-07-13] MEDS: NICOTINE 7 MG PATCH TOP SCH (09:00)
--- NOTE | 2022-07-13 14:00 | PROVIDER PROGRESS NOTE ---
Assessment/Plan - Problem List (1) Leukocytosis Assessment/Plan: His white blood count has been elevated since admission (23>> 20>> 25>> 27.8>> 28.5 today). Steroids were started on 07/10. We expect some increase of WBCs from the steroids, however his WBC is very high at 28.5 today, and he also has recurrence of bandemia (11>> 0>> 2>> 5>> today) There is no cough, urinalysis was negative, but he did not have a paracentesis sinxce being admitted (or ever) and I am concerned he may have SBP Plan: A diagnostic paracentesis is to be done today under US guidance Will ask for cell count, culture and pathology of the fluid Will start empiric iv 3rd gen cephalosporin if fluid is suggestive of SBP (2) Hyponatremia Na dropped to 130 this am from 131 yesterday, but this is improved over his admit Na 120, and we suspect this is due to his poor po intake and nausea and vomiting over the last 2 weeks, and from liver cirrhosis. NS infusion stopped, his rate of Na increase is good. Plan: I have ordered a free water total fluid restriction per day Follow BMP daily (3) Liver failure Impression: AST 181, ALT 68, AST/ALT ratio>2,total bilirubin 27.4 on admit. This morning AST , ALT , Fitness [employer]er , Maddrey score 72.5>> today down to 61. At greater than 32 may benefit from glucocorticoid therapy. MELD score 32 points>> has improved to 26 points. 3 month mortality is 52.6%. Plan: high Maddrey and MELD scores support use of glucoccorticoids for this patient, prednisone 40mg po daily was started 07/10. Will recheck PT and INR to update maddrey score prior to discharge We have also started spironolactone before discharge. Paracentesis is planned Following Ammonia level and Lactulose started Qualifiers: Liver failure chronicity: acute Hepatic coma status: without hepatic coma Qualified Code(s): K72.00 - Acute and subacute hepatic failure without coma (4) Liver cirrhosis with ascites Impression: He has hx of heavy alcohol use, elevated total billirubin, AST/ALT>[address] and MRCP impressions support heavy alcohol use as the reason for liver cirrhosis. Plan: supportive care, hydration, correction of electrolyte abnormalities. 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 (6) Alcohol abuse As per Hx at presentation Plan: He vehemently stated he is "done with that" We changed his IV thiamine to p.o. thiamine 500 mg daily and yesterday we decreased thiamine down to 100 mg a day. Continue this dose. (7) Hx of Hypertension Impression: He has history of HTN but remains hypotensive this admit. Suspect this is due to his recent 2 weeks of nausea and vomiting and due to liver failure. Plan: continue to hold home HTN meds. Qualifiers: Hypertension type: primary hypertension Qualified Code(s): I10 - Essential (primary) hypertension (8) Hx of Diabetes Impression: He took metformin at home, we did not order this as inpatient due to risk of acidosis. BG are elevated, most likely this is because of the steroids he received Hgb came back at A1C 4.7 Plan: continue sub q insulin to manage BG, Given A1C of 4.7, he may be able to manage his blood glu with diet alone, as outpatient Qualifiers: Diabetes mellitus type: type 2 Diabetes mellitus intermediate card tender insulin use: without fpc use Diabetes mellitus complication status: with neurologic complications Diabetes mellitus complication detail: with polyneuropathy Qualified Code(s): E11.42 - Type 2 diabetes mellitus with diabetic polyneuropathy (9) Hypokalemia Impression: Resolved with replacement I suspect this was due to pt's poor po intake and nausea and vomiting over the last 2 weeks. K+ 3.5 this am, Plan: Follow BMP daily - Current Meds Current Meds: Current Medications Generic Name Dose Route Start Last Admin Trade Name Freq PRN Reason Stop Dose Admin Insulin Human Lispro 1 - 9 unit 07/11/22 21:09 07/13/22 11:52 Insulin Lispro 300 Unit/3 Ml Pen SUBQ 5 unit 0800,1200,1700,2100 SHIRIN Administration Protocol Lactulose 10 gm 07/12/22 11:00 07/13/22 08:58 Lactulose 10 Gm /15 Ml Udc PO 10 gm DAILY SHIRIN Administration Nicotine 1 patch 07/11/22 10:00 07/13/22 09:00 Nicotine 7 Mg Patch TOP 1 patch DAILY SHIRIN Administration Potassium Chloride 20 meq 07/10/22 08:00 07/13/22 11:55 Potassium Chloride 20 Meq Tablet PO 20 meq TIDWM SHIRIN Administration Prednisone 40 mg 07/10/22 11:00 07/13/22 08:59 Prednisone 20 Mg Tablet PO 40 mg DAILYWM SHIRIN Administration Multivit/Folic Acid/Iron 1 tab 07/10/22 16:00 07/13/22 08:57 Vitamin Tablet PO 1 tab DAILYWM SHIRIN Administration Sodium Chloride 10 ml 07/09/22 14:38 07/11/22 12:30 Sodium Chloride Flush 0.9% 10 Ml Syringe IVP 10 ml PRN PRN Administration NEEDED PER PROVIDER ORDERS Sodium Chloride 10 ml 07/09/22 17:00 07/13/22 09:05 Sodium Chloride Flush 0.9% 10 Ml Syringe IVP 10 ml 0100,0900,1700 SHIRIN Administration Spironolactone 50 mg 07/11/22 11:00 07/13/22 08:58 Spironolactone 25 Mg Tablet PO 50 mg DAILY SHIRIN Administration Thiamine HCl 100 mg 07/10/22 16:00 07/13/22 08:59 Thiamine 100 Mg Tablet PO 100 mg DAILY SHIRIN Administration - Lab Result Fish Bone Diagrams: 07/13/22 04:22 07/13/22 04:22 - Additional Planning My Orders: My Active Orders 07/13/22 CELL COUNT, BF [BF] Urgent CUL,BODY FLUID(AEROBIC) [RM] Urgent 07/13/22 08:00 Abdominal Paracentesis [US] Routine 07/13/22 13:53 Miscellaenous Nursing Order [RC] ONCE Subjective - Subjective Patient Reports: Resting Comfortably, Fatigue (very sleepy today) Objective Vital Signs: Vital Signs - 24 hr 07/12/22 07/12/22 07/13/22 15:48 20:52 00:04 Temperature 36.5 C 36.5 C 36.5 C Heart Rate [ 80 89 64 Brachial] Respiratory 18 18 22 Rate Blood Pressure 112/69 100/58 L 105/53 L [Right Brachial artery] O2 Saturation 92 93 94 07/13/22 07/13/22 07/13/22 04:33 07:22 11:31 Temperature 36.5 C 36.5 C 36.6 C Heart Rate [ 73 69 102 H Brachial] Respiratory 18 18 20 Rate Blood Pressure 113/71 111/68 109/61 [Right Brachial artery] O2 Saturation 94 95 95 Oxygen O2 Source Room air I&O (Last 24 Hrs): Intake and Output Totals x24h 07/11/22 07/12/22 07/13/22 23:59 23:59 23:59 Intake Total 1342.5 1210 810 Output Total 1525 1000 300 Balance -182.5 210 510 General: No acute distress, Other (Asleep) HEENT: Mucous membr. moist/pink, Other (icteric) Neck: Supple, No JVD Neuro: Alert, Non Focal, Other (No astreixis) Cardiovascular: Regular rate Respiratory: No respiratory distress, Breath sounds nml Abdomen: Soft, Other (distended, moderately firm, non-tender, (+) fluid wave) Extremities: No clubbing, No edema, No tenderness/swelling - Results Results: Laboratory Results WBC 28.5 x10^3/uL (4.8-10.8) H 07/13/22 04:22 RBC 2.94 10^6/uL (4.70-6.10) L 07/13/22 04:22 Hgb 12.0 g/dL (14.0-18.0) L 07/13/22 04:22 Hct 32.8 % (42.0-52.0) L 07/13/22 04:22 MCV 111.6 fL (80.0-94.0) H 07/13/22 04:22 MCH 40.8 pg (27.0-31.0) H 07/13/22 04:22 MCHC 36.6 g/dL (32.0-36.0) H 07/13/22 04:22 RDW 15.9 % (12.0-15.0) H 07/13/22 04:22 Plt Count 180 10^3/uL (130-450) 07/13/22 04:22 MPV 10.4 fL (7.4-11.4) 07/13/22 04:22 Neut # (Auto) Not Reportable 07/13/22 04:22 Lymph # (Auto) Not Reportable 07/13/22 04:22 [place] # (Auto) Not Reportable 07/13/22 04:22 Eos # (Auto) Not Reportable 07/13/22 04:22 Baso # (Auto) Not Reportable 07/13/22 04:22 Absolute Nucleated RBC Not Reportable 07/13/22 04:22 Total Counted 100 07/13/22 04:22 Band Neuts % (Manual) 0 % (0-10) 07/13/22 04:22 Abnorm Lymph % (Manual) 0 % 07/13/22 04:22 Metamyelocytes % 1 % (-0) H 07/12/22 04:31 Myelocytes % 2 % (-0) H 07/13/22 04:22 Nucleated RBC % Not Reportable 07/13/22 04:22 Neutrophils # (Manual) 25.7 10^3/uL (1.5-6.6) H 07/13/22 04:22 Lymphocytes # (Manual) 1.4 10^3/uL (1.5-3.5) L 07/13/22 04:22 Monocytes # (Manual) 0.9 10^3/uL (0.0-1.0) 07/13/22 04:22 Eosinophils # (Manual) 0.0 10^3/uL (0-0.7) 07/13/22 04:22 Basophils # (Manual) 0.0 10^3/uL (0-0.1) 07/13/22 04:22 Differential Comment MANUAL DIFFERENTIAL 07/13/22 04:22 Manual Slide Review Indicated 07/09/22 11:48 WBC Morphology NORMAL APPEARANCE (NORMAL) 07/13/22 04:22 Platelet Estimate NORMAL (130-450,000) (NORMAL) 07/13/22 04:22 Platelet Morphology NORMAL APPEARANCE (NORMAL) 07/13/22 04:22 RBC Morph Micro Appear 2+ MACROCYTOSIS (NORMAL) 1+ TARGET CELLS (NORMAL) 1+ HYPOCHROMASIA (NORMAL) 07/13/22 04:22 RBC Morph Micro Appear 2+ MACROCYTOSIS (NORMAL) 1+ TARGET CELLS (NORMAL) 1+ HYPOCHROMASIA (NORMAL) 07/13/22 04:22 RBC Morph Micro Appear 2+ MACROCYTOSIS (NORMAL) 1+ TARGET CELLS (NORMAL) 1+ HYPOCHROMASIA (NORMAL) 07/13/22 04:22 PT 19.4 secs (9.9-12.6) H 07/13/22 04:22 INR 1.8 (0.8-1.2) H 07/13/22 04:22 Sodium 130 mmol/L (135-145) L 07/13/22 04:22 Potassium 4.0 mmol/L (3.5-5.0) 07/13/22 04:22 Chloride 97 mmol/L (101-111) L 07/13/22 04:22 Carbon Dioxide 25 mmol/L (21-32) 07/13/22 04:22 Anion Gap 8.0 (6-13) 07/13/22 04:22 BUN 22 mg/dL (6-20) H 07/13/22 04:22 Creatinine 0.6 mg/dL (0.6-1.2) 07/13/22 04:22 Estimated GFR (MDRD) 144 (>89) 07/13/22 04:22 Glucose 203 mg/dL (70-100) H 07/13/22 04:22 POC Whole Bld Glucose 234 mg/dL (70 - 100) H 07/13/22 11:23 Estimat Average Glucose 88 mg/dL (70-100) 07/10/22 06:06 Hemoglobin A1c % 4.7 % (4.27-6.07) 07/10/22 06:06 Calcium 8.2 mg/dL (8.5-10.3) L 07/13/22 04:22 Magnesium 2.5 mg/dL (1.7-2.8) 07/09/22 11:48 Total Bilirubin 20.3 mg/dL (0.2-1.0) H 07/13/22 04:22 AST 158 IU/L (10-42) H 07/13/22 04:22 ALT 97 IU/L (10-60) H 07/13/22 04:22 Alkaline Phosphatase 218 IU/L (42-121) H 07/13/22 04:22 Ammonia 69.6 umol/L (7-35) H 07/12/22 09:34 Total Protein 5.5 g/dL (6.7-8.2) L 07/13/22 04:22 Albumin 1.6 g/dL (3.2-5.5) L 07/13/22 04:22 Globulin 3.9 g/dL (2.1-4.2) 07/13/22 04:22 Albumin/Globulin Ratio 0.4 (1.0-2.2) L 07/13/22 04:22 Lipase 71 U/L (22-51) H 07/09/22 11:48 Urine Color DARK YELLOW 07/09/22 13:28 Urine Clarity CLEAR (CLEAR) 07/09/22 13:28 Urine pH 6.5 PH (5.0-7.5) 07/09/22 13:28 Ur Specific [place] <=1.005 (1.002-1.030) 07/09/22 13:28 Urine Protein NEGATIVE mg/dL (NEGATIVE) 07/09/22 13:28 Urine Glucose (UA) 100 mg/dL (NEGATIVE) H 07/09/22 13:28 Urine Ketones NEGATIVE mg/dL (NEGATIVE) 07/09/22 13:28 Urine Occult Blood NEGATIVE (NEGATIVE) 07/09/22 13:28 Urine Nitrite NEGATIVE (NEGATIVE) 07/09/22 13:28 Urine Bilirubin LARGE (NEGATIVE) H 07/09/22 13:28 Urine Urobilinogen 1 (NORMAL) E.U./dL (NORMAL) 07/09/22 13:28 Ur Leukocyte Esterase NEGATIVE (NEGATIVE) 07/09/22 13:28 Ur Microscopic Review NOT INDICATED 07/09/22 13:28 Urine Culture Comments NOT INDICATED 07/09/22 13:28 Nasal Adenovirus (PCR) NOT DETECTED 07/09/22 14:22 Nasal B. parapertussis DNA (PCR) NOT DETECTED 07/09/22 14:22 Nasal Coronavir 229E PCR NOT DETECTED 07/09/22 14:22 Nasal Coronavir HKU1 PCR NOT DETECTED 07/09/22 14:22 Nasal Coronavir NL63 PCR NOT DETECTED 07/09/22 14:22 Nasal Coronavir OC43 PCR NOT DETECTED 07/09/22 14:22 Nasal Enterovir/Rhinovir PCR NOT DETECTED 07/09/22 14:22 Nasal Influenza B PCR NOT DETECTED 07/09/22 14:22 Nasal Influenza A PCR NOT DETECTED 07/09/22 14:22 Nasal Parainfluen 1 PCR NOT DETECTED 07/09/22 14:22 Nasal Parainfluen 2 PCR NOT DETECTED 07/09/22 14:22 Nasal Parainfluen 3 PCR NOT DETECTED 07/09/22 14:22 Nasal Parainfluen 4 PCR NOT DETECTED 07/09/22 14:22 Nasal RSV (PCR) NOT DETECTED 07/09/22 14:22 Nasal B.pertussis DNA PCR NOT DETECTED 07/09/22 14:22 Nasal C.pneumoniae (PCR) NOT DETECTED 07/09/22 14:22 [place] Human Metapneumo PCR NOT DETECTED 07/09/22 14:22 Nasal M.pneumoniae (PCR) NOT DETECTED 07/09/22 14:22 Nasal SARS-CoV-2 (PCR) NOT DETECTED 07/09/22 14:22 Urine Opiates Screen NEGATIVE (NEGATIVE) 07/11/22 16:08 Ur Oxycodone Screen NEGATIVE (NEGATIVE) 07/11/22 16:08 Urine Methadone Screen NEGATIVE (NEGATIVE) 07/11/22 16:08 Ur Propoxyphene Screen NEGATIVE (NEGATIVE) 07/11/22 16:08 Ur Barbiturates Screen NEGATIVE (NEGATIVE) 07/11/22 16:08 Ur Tricyclics Screen NEGATIVE (NEGATIVE) 07/11/22 16:08 Ur Phencyclidine Scrn NEGATIVE (NEGATIVE) 07/11/22 16:08 Ur Amphetamine Screen NEGATIVE (NEGATIVE) 07/11/22 16:08 U Methamphetamines Scrn NEGATIVE (NEGATIVE) 07/11/22 16:08 U Benzodiazepines Scrn NEGATIVE (NEGATIVE) 07/11/22 16:08 Urine Cocaine Screen NEGATIVE (NEGATIVE) 07/11/22 16:08 U Cannabinoids Screen POSITIVE (NEGATIVE) H 07/11/22 16:08 Ethyl Alcohol < 5.0 mg/dL 07/09/22 11:48 Hepatitis A IgM Ab Positive (Negative) A 07/09/22 11:48 Hep Bs Antigen Negative (Negative) 07/09/22 11:48 Hep B Core IgM Ab Negative (Negative) 07/09/22 11:48 Hepatitis C Antibody 0.1 s/co ratio (0.0-0.9) 07/09/22 11:48 Hepatitis C Interp Comment (.) 07/09/22 11:48
[2022-07-13] MEDS ORDERED: LIDOCAINE-MPF 1% 5 ML VIAL ONE (15:41)
[2022-07-13] MEDS ORDERED: LIDOCAINE-MPF 1% 5 ML VIAL TD ONE (16:27)
[2022-07-13 16:53] LABS: CC,BF RBC < 3 /mm^3; CC,BF WBC 80 /mm^3
[2022-07-13 16:54] LABS: BF CLARITY CLEAR; BF COLOR YELLOW; BF SOURCE PERITONEAL
[2022-07-13] MEDS ORDERED: CALCIUM CARBONATE CHEW 500 MG TABLET PO PRN (17:43)
[2022-07-13 18:04] LABS: LYMPHOCYTES %,BODY FLUID 5 %; MACROPHAGES %,BODY FLUID 75 %; MESOTHELIAL %, BF 8 %; MONOCYTES %,BODY FLUID 3 %; NEUTROPHILS %, BF 9 %
[2022-07-14 04:55] LABS: BASOPHILS % (AUTO) 0.3 %; HCT - HEMATOCRIT 32.6 % (42.0-52.0); HGB - HEMOGLOBIN 11.7 g/dL (14.0-18.0); LYMPHOCYTES % (AUTO) 3.9 %; MEAN CORPUSCULAR HEMOGLOBIN 40.3 pg (27.0-31.0); MEAN CORPUSCULAR HGB CONC 35.9 g/dL (32.0-36.0); MEAN CORPUSCULAR VOLUME 112.4 fL (80.0-94.0); MEAN PLATELET VOLUME 10.4 fL (7.4-11.4); MONOCYTES % (AUTO) 2.6 %; NEUTROPHILS % (AUTO) 90.2 %; PLT - PLATELET COUNT 178 10^3/uL (130-450); RED CELL DISTRIBUTION WIDTH 16.3 % (12.0-15.0); WHITE BLOOD COUNT 31.9 x10^3/uL (4.8-10.8)
[2022-07-14 04:59] LABS: ABNORMAL LYMPHS % (MANUAL) 0 %
[2022-07-14 05:12] LABS: BAND NEUTROPHILS % (MANUAL) 2 %; LYMPHOCYTES # (MANUAL) 1.3 10^3/uL (1.5-3.5); LYMPHOCYTES % (MANUAL) 4 %; MONOCYTES # (MANUAL) 0.6 10^3/uL (0.0-1.0)
[2022-07-14 05:13] LABS: DIFFERENTIAL COMMENT MANUAL DIFFERENTIAL; PLATELET ESTIMATE, MANUAL NORMAL (130-450,000) (NORMAL); PLATELET MORPHOLOGY NORMAL APPEARANCE (NORMAL); WBC MORPHOLOGY (MULTIPLE) NORMAL APPEARANCE (NORMAL)
[2022-07-14 05:19] LABS: ALBUMIN 1.6 g/dL (3.2-5.5); ALBUMIN/GLOBULIN RATIO 0.4 (1.0-2.2); BILIRUBIN,TOTAL 17.1 mg/dL (0.2-1.0); CALCIUM 8.3 mg/dL (8.5-10.3); CREATININE 0.6 mg/dL (0.6-1.2); POTASSIUM 4.6 mmol/L (3.5-5.0); TOTAL PROTEIN 5.3 g/dL (6.7-8.2)
[2022-07-14] MEDS: SODIUM CHLORIDE FLUSH 0.9% 10 ML SYRINGE IVP SCH ×3 (08:12→16:53)
[2022-07-14] MEDS: INSULIN LISPRO 300 UNIT/3 ML PEN SUBQ SCH ×5 (08:32→20:57)
[2022-07-14] MEDS: LACTULOSE 10 GM /15 ML UDC PO SCH (08:33)
[2022-07-14] MEDS: PRENATAL VITAMIN TABLET PO SCH (08:34)
[2022-07-14] MEDS: THIAMINE 100 MG TABLET PO SCH (08:35)
[2022-07-14] MEDS: POTASSIUM CHLORIDE 20 MEQ TABLET PO SCH ×3 (08:35→16:53)
[2022-07-14] MEDS: SPIRONOLACTONE 25 MG TABLET PO SCH (08:35)
[2022-07-14] MEDS: predniSONE 20 MG TABLET PO SCH (08:35)
[2022-07-14] MEDS: LACTOBACILLUS RHAMNOSUS GG CAPSULE PO SCH (08:36)
[2022-07-14] MEDS: NICOTINE 7 MG PATCH TOP SCH (08:37)
[2022-07-14] MEDS ORDERED: INSULIN GLARGINE-YFGN 300 UNIT/3 ML PEN SUBQ ONE (10:19)
--- NOTE | 2022-07-14 10:57 | Ultrasound Report ---
PROCEDURE: Abdominal Paracentesis INDICATIONS: Ascites, elevated WBC, concern for SBP TECHNIQUE: The indications, alternatives, benefits, risks, and complications of the procedure were explained to the patient. Written informed consent was obtained and placed in the chart. The abdomen and pelvis were examined sonographically, and an appropriate site was chosen for paracentesis. The skin was pre pared and draped in the usual sterile fashion, and 1% lidocaine was infiltrated from the skin down th rough the peritoneal surface. A 19-gauge catheter-covered needle was then introduced into the perito kellen space, the catheter was advanced and the needle was withdrawn, and thereafter peritoneal fluid w as withdrawn. The catheter was then removed and a dressing was applied. The fluid was discarded if the clinician did not order diagnostic testing of the fluid. COMPARISON: CT abdomen and pelvis with, 07/09/2022. MRCP, 07/09/2022. FINDINGS: Access site: Right lower quadrant Needle: One-Step centesis catheter with introducer needle. Fluid volume and description: 120 mL. Mildly cloudy. Fluid sent for diagnostic testing: Per referring physician Medications: 1% lidocaine for local anaesthesia. Complications: None. IMPRESSION: Successful ultrasound-guided diagnostic paracentesis. Reviewed by: Nerissa Snell MD on 07/14/2022 10:55 AM [facility] [[email or web address]] Approved by: Nerissa Snell MD on 07/14/2022 10:55 AM PST Station ID: [id number]
--- NOTE | 2022-07-14 13:13 | PROVIDER PROGRESS NOTE ---
Assessment/Plan - Problem List (1) Leukocytosis Assessment/Plan: His white blood count has been elevated since admission (23>> 20>> 25>> 27.8>> 28.5>> 31.5 today). Steroids were started on 07/10. We expect some increase of WBCs from the steroids, however his WBC is very high at 31.5 today, and he also has had recurrence of bandemia (11>> 0>> 2>> 5>> 0>> 2 today) There is no cough, urinalysis was negative, but he did not have a paracentesis since being admitted (or ever). He underwent a diagnostic paracentesis yesterday. The fluid showed 80 WBCs and only 9% had neutrophils. I spoke to the on-call Charge Account Authorizer at today and reviewed his case and the ascitic fluid cell count. This is not consistent with SBP. Plan: The Charge Account Authorizer said that he does not need to be on empiric antibiotics. Await final culture results before he can be discharged safely. Await pathology of the fluid, which can take a week I reported all of the above to the patient and his mother was in the room at bedside today (2) Toxicity associated with cytokine release Assessment/Plan: I contacted the on-call Charge Account Authorizer today at [facility] and discussed this patient's case. The hepatology specialist felt that this patient had a cytokine storm, marked demargination of white cells, very elevated LFTs, he has no fever or NELSON however Plan: Recommendation was to continue prednisone 40 mg daily unless his Lille score on day 6 or 7 of treatment on prednisone, shows that he is not responding. Then the steroids can be stopped. Otherwise, if his Lille score shows improvement, he would need to be on prednisone for 28 days. I updated the patient, and his mother at bedside, with this plan That Charge Account Authorizer also said that depending on his Lille score if he is a nonresponder his 6-month mortality is 75%. (3) Alcoholic hepatitis Qualifiers: Ascites presence: with ascites Qualified Code(s): K70.11 - Alcoholic hepatitis with ascites Assessment/Plan: The case was discussed with Charge Account Authorizer on-call today (see above). Her impression was that he has alcoholic hepatitis Plan: We will repeat his MELD score, Madrey score and Lille score tomorrow. Anticipate discharge soon, if his vital signs are stable and depending on PT and OT evaluations (4) Liver failure Impression: AST 181, ALT 68, AST/ALT ratio>2,total bilirubin 27.4 on admit. Maddrey score 72.5>> later down to 61. At greater than 32, pts may benefit from glucocorticoid therapy, MELD score 32 points>> has improved to 26 points. 3 month mortality is 52.6%. His high Maddrey and MELD scores support use of glucoccorticoids for this patient, thus prednisone 40mg po daily was started 07/10 Plan: Will recheck PT and INR to update maddrey score prior to discharge We have also started spironolactone before discharge and will DCh him on this Following Ammonia level and Lactulose daily started We will obtain PT and OT evaluations, to determine if he is safe for discharge soon Qualifiers: Liver failure chronicity: acute Hepatic coma status: without hepatic coma Qualified Code(s): K72.00 - Acute and subacute hepatic failure without coma (5) Liver cirrhosis with ascites Impression: He has hx of heavy alcohol use, elevated total billirubin, AST/ALT>[address] and MRCP impressions support heavy alcohol use as the reason for liver cirrhosis. Plan: supportive care, hydration, correction of electrolyte abnormalities. Diagnostic paracentesis took off minimal fluid. He may need future therapeutic paracenteses. 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 Plan: He will need follow up outpatient for possible biopsy (7) Alcohol abuse As per Hx at presentation Plan: He vehemently stated he is "done with that" I have asked social work to come back and see him now that he is lucid, for SW to provide resources after discharge We changed his IV thiamine to p.o. thiamine 500 mg daily and yesterday we dec reased thiamine down to 100 mg a day. Continue this dose. (8) Hx of Hypertension Impression: He has history of HTN but remains hypotensive or normotensive this admission. Suspected this was initially due to his recent 2 weeks of nausea and vomiting and now we think it is due to chronic liver failure. Plan: continue to hold home HTN meds. Qualifiers: Hypertension type: primary hypertension Qualified Code(s): I10 - Essential (primary) hypertension (9) Hx of Diabetes Impression: He took metformin at home, we did not order this as inpatient due to risk of acidosis. BG are elevated, most likely this is because of the steroids he received Hgb came back at A1C 4.7 Since starting on prednisone, his glucoses have been very elevated Plan: continue sub q Longacting and ss insulin to manage BG, which are high since on very high Prednisone dose since 07/10 Given A1C of 4.7,we will to manage his blood glu with diet alone, as outpatient Qualifiers: Diabetes mellitus type: type 2 Diabetes mellitus machine long goods helper insulin use: without machine long goods helper use Diabetes mellitus complication status: with neurologic complications Diabetes mellitus complication detail: with polyneuropathy Qualified Code(s): E11.42 - Type 2 diabetes mellitus with diabetic polyneuropathy (10) Hyponatremia Na dropped to 130 this am from 131 yesterday, but this is improved over his admit Na 120, and we suspect this is due to his poor po intake and nausea and vomiting over the last 2 weeks, and from liver cirrhosis. NS infusion stopped, his rate of Na increase is good. Plan: I have ordered a free water restriction per day Follow BMP daily (11) Hypokalemia Impression: Resolved with replacement I suspect this was due to pt's poor po intake and nausea and vomiting over the last 2 weeks. K+ 3.5 this am, Plan: Follow BMP daily - Current Meds Current Meds: Current Medications Generic Name Dose Route Start Last Admin Trade Name Freq PRN Reason Stop Dose Admin Calcium Carbonate/Glycine 500 mg 07/13/22 17:43 07/13/22 18:25 Calcium Carbonate Chew 500 Mg Tablet PO 500 mg TID PRN Administration INDIGESTION Insulin Human Lispro 2 - 10 unit 07/14/22 12:00 07/14/22 11:24 Insulin Lispro 300 Unit/3 Ml Pen SUBQ 8 unit 0800,1200,1700,2100 SHIRIN Administration Protocol Lactobacillus Rhamnosus 1 cap 07/14/22 09:00 07/14/22 08:36 Lactobacillus Rhamnosus Gg Capsule PO 1 cap DAILY SHIRIN Administration Lactulose 10 gm 07/12/22 11:00 07/14/22 08:33 Lactulose 10 Gm /15 Ml Udc PO 10 gm DAILY SHIRIN Administration Nicotine 1 patch 07/11/22 10:00 07/14/22 08:37 Nicotine 7 Mg Patch TOP 1 patch DAILY SHIRIN Administration Potassium Chloride 20 meq 07/10/22 08:00 07/14/22 11:23 Potassium Chloride 20 Meq Tablet PO 20 meq TIDWM SHIRIN Administration Prednisone 40 mg 07/10/22 11:00 07/14/22 08:35 Prednisone 20 Mg Tablet PO 40 mg DAILYWM SHIRIN Administration Multivit/Folic Acid/Iron 1 tab 07/10/22 16:00 07/14/22 08:34 Vitamin Tablet PO 1 tab DAILYWM SHIRIN Administration Sodium Chloride 10 ml 07/09/22 14:38 07/11/22 12:30 Sodium Chloride Flush 0.9% 10 Ml Syringe IVP 10 ml PRN PRN Administration NEEDED PER PROVIDER ORDERS Sodium Chloride 10 ml 07/09/22 17:00 07/14/22 08:39 Sodium Chloride Flush 0.9% 10 Ml Syringe IVP 10 ml 0100,0900,1700 SHIRIN Administration Spironolactone 50 mg 07/11/22 11:00 07/14/22 08:35 Spironolactone 25 Mg Tablet PO 50 mg DAILY SHIRIN Administration Thiamine HCl 100 mg 07/10/22 16:00 07/14/22 08:35 Thiamine 100 Mg Tablet PO 100 mg DAILY SHIRIN Administration - Lab Result Fish Bone Diagrams: 07/14/22 04:45 07/14/22 04:45 - Additional Planning My Orders: My Active Orders 07/13/22 16:13 CUL,BODY FLUID(AEROBIC) [RM] Urgent 07/13/22 17:43 Calcium Carbonate [Tums] 500 mg PO TID PRN 07/14/22 Evaluate and Treat OT [OT] Routine Evaluate and Treat PT [PT] Routine 07/14/22 09:00 Lactobacillus Rhamnosus GG [Culturelle] 1 cap PO DAILY 07/14/22 12:00 Insulin Lispro [Humalog Kwikpen U-100] 2 - 10 unit SUBQ 0800,1200,1700,2100 07/15/22 09:00 Insulin Glargine-Yfgn [Semglee] 5 unit SUBQ DAILY Subjective - Subjective Patient Reports: Feeling Better Objective Vital Signs: Vital Signs - 24 hr 07/13/22 07/13/22 07/14/22 16:34 20:27 03:15 Temperature 36.6 C 36.5 C 36.7 C Heart Rate [ 76 79 77 Brachial] Respiratory 24 16 17 Rate Blood Pressure 112/74 114/76 117/70 [Right Brachial artery] O2 Saturation 99 95 94 07/14/22 07/14/22 07/14/22 06:05 07:34 11:12 Temperature 36.3 C L 36.7 C 36.5 C Heart Rate [ 80 73 80 Brachial] Respiratory 18 18 20 Rate Blood Pressure 104/70 111/66 115/61 [Right Brachial artery] O2 Saturation 98 94 95 Oxygen O2 Source Room air I&O (Last 24 Hrs): Intake and Output Totals x24h 07/12/22 07/13/22 07/14/22 23:59 23:59 23:59 Intake Total 1210 1228 390 Output Total 1000 950 250 Balance 210 278 140 General: Alert, Oriented x3, Other (Sppech is slow but not slurred) HEENT: Mucous membr. moist/pink, Other (Scleral icterus) Neck: Supple, No JVD Neuro: Alert, Non Focal, Other (No asterixis or nystagmus) Cardiovascular: Regular rate, No murmurs Respiratory: No respiratory distress, Breath sounds nml Abdomen: Other (Distended, not tender, not firm.) Extremities: No clubbing, No edema, Other (Skin is icteric) - Results Results: Laboratory Results WBC 31.9 x10^3/uL (4.8-10.8) H 07/14/22 04:45 RBC 2.90 10^6/uL (4.70-6.10) L 07/14/22 04:45 Hgb 11.7 g/dL (14.0-18.0) L 07/14/22 04:45 Hct 32.6 % (42.0-52.0) L 07/14/22 04:45 MCV 112.4 fL (80.0-94.0) H 07/14/22 04:45 MCH 40.3 pg (27.0-31.0) H 07/14/22 04:45 MCHC 35.9 g/dL (32.0-36.0) 07/14/22 04:45 RDW 16.3 % (12.0-15.0) H 07/14/22 04:45 Plt Count 178 10^3/uL (130-450) 07/14/22 04:45 MPV 10.4 fL (7.4-11.4) 07/14/22 04:45 Neut # (Auto) Not Reportable 07/14/22 04:45 Lymph # (Auto) Not Reportable 07/14/22 04:45 [place] # (Auto) Not Reportable 07/14/22 04:45 Eos # (Auto) Not Reportable 07/14/22 04:45 Baso # (Auto) Not Reportable 07/14/22 04:45 Absolute Nucleated RBC Not Reportable 07/14/22 04:45 Total Counted 100 07/14/22 04:45 Band Neuts % (Manual) 2 % (0-10) 07/14/22 04:45 Abnorm Lymph % (Manual) 0 % 07/14/22 04:45 Metamyelocytes % 1 % (-0) H 07/12/22 04:31 Myelocytes % 2 % (-0) H 07/13/22 04:22 Nucleated RBC % Not Reportable 07/14/22 04:45 Neutrophils # (Manual) 30.0 10^3/uL (1.5-6.6) H 07/14/22 04:45 Lymphocytes # (Manual) 1.3 10^3/uL (1.5-3.5) L 07/14/22 04:45 Monocytes # (Manual) 0.6 10^3/uL (0.0-1.0) 07/14/22 04:45 Eosinophils # (Manual) 0.0 10^3/uL (0-0.7) 07/14/22 04:45 Basophils # (Manual) 0.0 10^3/uL (0-0.1) 07/14/22 04:45 Differential Comment MANUAL DIFFERENTIAL 07/14/22 04:45 Manual Slide Review Indicated 07/09/22 11:48 WBC Morphology NORMAL APPEARANCE (NORMAL) 07/14/22 04:45 Platelet Estimate NORMAL (130-450,000) (NORMAL) 07/14/22 04:45 Platelet Morphology NORMAL APPEARANCE (NORMAL) 07/14/22 04:45 RBC Morph Micro Appear 1+ HYPOCHROMASIA (NORMAL) 2+ MACROCYTOSIS (NORMAL) 1+ TARGET CELLS (NORMAL) 07/14/22 04:45 RBC Morph Micro Appear 1+ HYPOCHROMASIA (NORMAL) 2+ MACROCYTOSIS (NORMAL) 1+ TARGET CELLS (NORMAL) 07/14/22 04:45 RBC Morph Micro Appear 1+ HYPOCHROMASIA (NORMAL) 2+ MACROCYTOSIS (NORMAL) 1+ TARGET CELLS (NORMAL) 07/14/22 04:45 PT 19.4 secs (9.9-12.6) H 07/13/22 04:22 INR 1.8 (0.8-1.2) H 07/13/22 04:22 Sodium 131 mmol/L (135-145) L 07/14/22 04:45 Potassium 4.6 mmol/L (3.5-5.0) 07/14/22 04:45 Chloride 98 mmol/L (101-111) L 07/14/22 04:45 Carbon Dioxide 25 mmol/L (21-32) 07/14/22 04:45 Anion Gap 8.0 (6-13) 07/14/22 04:45 BUN 21 mg/dL (6-20) H 07/14/22 04:45 Creatinine 0.6 mg/dL (0.6-1.2) 07/14/22 04:45 Estimated GFR (MDRD) 144 (>89) 07/14/22 04:45 Glucose 235 mg/dL (70-100) H 07/14/22 04:45 POC Whole Bld Glucose 286 mg/dL (70 - 100) H 07/14/22 11:11 Estimat Average Glucose 88 mg/dL (70-100) 07/10/22 06:06 Hemoglobin A1c % 4.7 % (4.27-6.07) 07/10/22 06:06 Calcium 8.3 mg/dL (8.5-10.3) L 07/14/22 04:45 Magnesium 2.0 mg/dL (1.7-2.8) 07/14/22 08:14 Total Bilirubin 17.1 mg/dL (0.2-1.0) H 07/14/22 04:45 AST 146 IU/L (10-42) H 07/14/22 04:45 ALT 107 IU/L (10-60) H 07/14/22 04:45 Alkaline Phosphatase 215 IU/L (42-121) H 07/14/22 04:45 Ammonia 47.6 umol/L (7-35) H 07/14/22 04:45 Total Protein 5.3 g/dL (6.7-8.2) L 07/14/22 04:45 Albumin 1.6 g/dL (3.2-5.5) L 07/14/22 04:45 Globulin 3.7 g/dL (2.1-4.2) 07/14/22 04:45 Albumin/Globulin Ratio 0.4 (1.0-2.2) L 07/14/22 04:45 Lipase 71 U/L (22-51) H 07/09/22 11:48 Urine Color DARK YELLOW 07/09/22 13:28 Urine Clarity CLEAR (CLEAR) 07/09/22 13:28 Urine pH 6.5 PH (5.0-7.5) 07/09/22 13:28 Ur Specific [place] <=1.005 (1.002-1.030) 07/09/22 13:28 Urine Protein NEGATIVE mg/dL (NEGATIVE) 07/09/22 13:28 Urine Glucose (UA) 100 mg/dL (NEGATIVE) H 07/09/22 13:28 Urine Ketones NEGATIVE mg/dL (NEGATIVE) 07/09/22 13:28 Urine Occult Blood NEGATIVE (NEGATIVE) 07/09/22 13:28 Urine Nitrite NEGATIVE (NEGATIVE) 07/09/22 13:28 Urine Bilirubin LARGE (NEGATIVE) H 07/09/22 13:28 Urine Urobilinogen 1 (NORMAL) E.U./dL (NORMAL) 07/09/22 13:28 Ur Leukocyte Esterase NEGATIVE (NEGATIVE) 07/09/22 13:28 Ur Microscopic Review NOT INDICATED 07/09/22 13:28 Urine Culture Comments NOT INDICATED 07/09/22 13:28 Fluid Source PERITONEAL 07/13/22 16:13 Fluid Color YELLOW 07/13/22 16:13 Fluid Clarity CLEAR 07/13/22 16:13 Fluid WBC 80 /mm^3 07/13/22 16:13 Fluid RBC < 3 /mm^3 07/13/22 16:13 Fluid Neutrophils % 9 % 07/13/22 16:13 Fluid Lymphocytes % 5 % 07/13/22 16:13 Fluid Monocytes % 3 % 07/13/22 16:13 Fluid Macrophages % 75 % 07/13/22 16:13 Fld Mesothelial Cell % 8 % 07/13/22 16:13 Nasal Adenovirus (PCR) NOT DETECTED 07/09/22 14:22 Nasal B. parapertussis DNA (PCR) NOT DETECTED 07/09/22 14:22 Nasal Coronavir 229E PCR NOT DETECTED 07/09/22 14:22 Nasal Coronavir HKU1 PCR NOT DETECTED 07/09/22 14:22 Nasal Coronavir NL63 PCR NOT DETECTED 07/09/22 14:22 Nasal Coronavir OC43 PCR NOT DETECTED 07/09/22 14:22 Nasal Enterovir/Rhinovir PCR NOT DETECTED 07/09/22 14:22 Nasal Influenza B PCR NOT DETECTED 07/09/22 14:22 Nasal Influenza A PCR NOT DETECTED 07/09/22 14:22 Nasal Parainfluen 1 PCR NOT DETECTED 07/09/22 14:22 Nasal Parainfluen 2 PCR NOT DETECTED 07/09/22 14:22 Nasal Parainfluen 3 PCR NOT DETECTED 07/09/22 14:22 Nasal Parainfluen 4 PCR NOT DETECTED 07/09/22 14:22 Nasal RSV (PCR) NOT DETECTED 07/09/22 14:22 Nasal B.pertussis DNA PCR NOT DETECTED 07/09/22 14:22 Nasal C.pneumoniae (PCR) NOT DETECTED 07/09/22 14:22 [place] Human Metapneumo PCR NOT DETECTED 07/09/22 14:22 Nasal M.pneumoniae (PCR) NOT DETECTED 07/09/22 14:22 Nasal SARS-CoV-2 (PCR) NOT DETECTED 07/09/22 14:22 Urine Opiates Screen NEGATIVE (NEGATIVE) 07/11/22 16:08 Ur Oxycodone Screen NEGATIVE (NEGATIVE) 07/11/22 16:08 Urine Methadone Screen NEGATIVE (NEGATIVE) 07/11/22 16:08 Ur Propoxyphene Screen NEGATIVE (NEGATIVE) 07/11/22 16:08 Ur Barbiturates Screen NEGATIVE (NEGATIVE) 07/11/22 16:08 Ur Tricyclics Screen NEGATIVE (NEGATIVE) 07/11/22 16:08 Ur Phencyclidine Scrn NEGATIVE (NEGATIVE) 07/11/22 16:08 Ur Amphetamine Screen NEGATIVE (NEGATIVE) 07/11/22 16:08 U Methamphetamines Scrn NEGATIVE (NEGATIVE) 07/11/22 16:08 U Benzodiazepines Scrn NEGATIVE (NEGATIVE) 07/11/22 16:08 Urine Cocaine Screen NEGATIVE (NEGATIVE) 07/11/22 16:08 U Cannabinoids Screen POSITIVE (NEGATIVE) H 07/11/22 16:08 Ethyl Alcohol < 5.0 mg/dL 07/09/22 11:48 Hepatitis A IgM Ab Positive (Negative) A 07/09/22 11:48 Hep Bs Antigen Negative (Negative) 07/09/22 11:48 Hep B Core IgM Ab Negative (Negative) 07/09/22 11:48 Hepatitis C Antibody 0.1 s/co ratio (0.0-0.9) 07/09/22 11:48 Hepatitis C Interp Comment (.) 07/09/22 11:48
[2022-07-15] MEDS: SODIUM CHLORIDE FLUSH 0.9% 10 ML SYRINGE IVP SCH ×3 (01:00→16:55)
[2022-07-15 05:04] LABS: BASOPHILS % (AUTO) 0.3 %; EOSINOPHILS % (AUTO) 0.1 %; HCT - HEMATOCRIT 34.8 % (42.0-52.0); HGB - HEMOGLOBIN 12.5 g/dL (14.0-18.0); LYMPHOCYTES % (AUTO) 3.7 %; MEAN CORPUSCULAR HEMOGLOBIN 40.8 pg (27.0-31.0); MEAN CORPUSCULAR HGB CONC 35.9 g/dL (32.0-36.0); MEAN CORPUSCULAR VOLUME 113.7 fL (80.0-94.0); MEAN PLATELET VOLUME 9.8 fL (7.4-11.4); MONOCYTES % (AUTO) 2.4 %; PLT - PLATELET COUNT 189 10^3/uL (130-450); RED BLOOD COUNT 3.06 10^6/uL (4.70-6.10); RED CELL DISTRIBUTION WIDTH 16.8 % (12.0-15.0)
[2022-07-15 05:09] LABS: ALBUMIN 1.8 g/dL (3.2-5.5); ALBUMIN/GLOBULIN RATIO 0.5 (1.0-2.2); ALKALINE PHOSPHATASE 226 IU/L (42-121); ALT ALANINE AMINOTRANSFERASE 130 IU/L (10-60); AST ASPARTATE AMINOTRANSFERASE 145 IU/L (10-42); BILIRUBIN,TOTAL 15.6 mg/dL (0.2-1.0); BUN - BLOOD UREA NITROGEN 21 mg/dL (6-20); CALCIUM 8.7 mg/dL (8.5-10.3); CARBON DIOXIDE - CO2 22 mmol/L (21-32); CHLORIDE 101 mmol/L (101-111); CREATININE 0.7 mg/dL (0.6-1.2); GFR - MDRD 120 (>89); GLUCOSE 228 mg/dL (70-100); IONIZED CALCIUM IF INDICATED NO; PHOSPHORUS 3.8 mg/dL (2.5-4.6); SODIUM 133 mmol/L (135-145); TOTAL PROTEIN 5.8 g/dL (6.7-8.2)
[2022-07-15 05:13] LABS: INR 1.6 (0.8-1.2)
[2022-07-15 05:15] LABS: WHITE BLOOD COUNT 35.1 x10^3/uL (4.8-10.8)
[2022-07-15 05:17] LABS: ABNORMAL LYMPHS % (MANUAL) 0 %
[2022-07-15 05:23] LABS: BAND NEUTROPHILS % (MANUAL) 1 %; DIFFERENTIAL COMMENT MANUAL DIFFERENTIAL; LYMPHOCYTES # (MANUAL) 2.8 10^3/uL (1.5-3.5); LYMPHOCYTES % (MANUAL) 8 %; MONOCYTES # (MANUAL) 0.4 10^3/uL (0.0-1.0); NEUTROPHILS # (MANUAL) 31.9 10^3/uL (1.5-6.6); PLATELET ESTIMATE, MANUAL NORMAL (130-450,000) (NORMAL)
[2022-07-15] MEDS: INSULIN LISPRO 300 UNIT/3 ML PEN SUBQ SCH ×6 (08:07→20:55)
[2022-07-15] MEDS: LACTULOSE 10 GM /15 ML UDC PO SCH ×2 (08:10→12:32)
[2022-07-15] MEDS: THIAMINE 100 MG TABLET PO SCH (08:10)
[2022-07-15] MEDS: PRENATAL VITAMIN TABLET PO SCH (08:10)
[2022-07-15] MEDS: LACTOBACILLUS RHAMNOSUS GG CAPSULE PO SCH (08:11)
[2022-07-15] MEDS: POTASSIUM CHLORIDE 20 MEQ TABLET PO SCH ×3 (08:11→16:54)
[2022-07-15] MEDS: predniSONE 20 MG TABLET PO SCH (08:11)
[2022-07-15] MEDS: NICOTINE 7 MG PATCH TOP SCH (08:15)
[2022-07-15] MEDS: SPIRONOLACTONE 25 MG TABLET PO SCH (08:15)
[2022-07-15] MEDS ORDERED: INSULIN GLARGINE-YFGN 300 UNIT/3 ML PEN SUBQ SCH (09:00)
[2022-07-15] MEDS: glipiZIDE 5 MG TABLET PO SCH (10:31)
[2022-07-15] MEDS: PANTOPRAZOLE 40 MG TABLET PO SCH (10:31)
--- NOTE | 2022-07-15 12:25 | PROVIDER PROGRESS NOTE ---
Assessment/Plan - Problem List (1) Leukocytosis Assessment/Plan: His white blood count has been elevated since admission (23>> 20>> 25>> 27.8>> 28.5>> 31.5>> 35 today). Steroids were started on 07/10. We expected some increase of WBCs from the steroids, however his WBC is extremely high at 35 today There is no cough, urinalysis was negative, and a diagnostic paracentesis showed a WBC< 250 (his WBC was 80), w/ few PMNs (his was 9%), and the ascites fluid cx is neg (final result came out today) I spoke to the on-call Automated Cutting Machine Operator at yesterday 07/14 and reviewed his case. Plan: The Automated Cutting Machine Operator said that he does not need to be on empiric antibiotics. Await pathology of the fluid, which can take a week I reported all of the above to the patient and his mother was in the room at bedside today (2) Toxicity associated with cytokine release Assessment/Plan: Yesterday 07/14, I contacted the on-call Automated Cutting Machine Operator at [facility] and discussed this patient's case. The hepatology specialist felt that this patient had a cytokine storm, marked demargination of white cells, very elevated LFTs, he has no fever or NELSON however Plan: supportive and symptomatic care (3) Alcoholic hepatitis Qualifiers: Ascites presence: with ascites Qualified Code(s): K70.11 - Alcoholic hepatitis with ascites Assessment/Plan: The case was discussed with Automated Cutting Machine Operator on-call today (see above). Hepatology impression was that he has alcoholic hepatitis. Steroids were appropriate to use, given his high MELD and Maddrey scores. Prenisone 40 mg calderon y had been started on 07/10. Recommendation was to continue prednisone 40 mg daily unless his Lille score on day 6 or 7 of treatment, shows that he is not responding. Then the steroids can be stopped. Otherwise, if his Lille score shows improvement, he would need to be on prednisone for 28 days. That Automated Cutting Machine Operator also said that depending on his Lille score if he is a nonresponder his 6-month mortality is 75%. Today was day #6 of steroid treatment. Therefore, we rechecked his CMP and labs today and this Lille score result was 0.808. As per guidelines, if the score is over 0.45, he is a non-responder to steroids. And if the score is over 0.45, he has a 25% chance to survive 6 months more. I discussed his Lille score today with the patient and his mother was at bedside. I discussed the prognosis with the patient and mother. They both started to cry. Plan: Prednisone will be stopped. Palliative care consult will be ordered Continuation of abstinence from alcohol was discussed. (4) Liver failure Impression: AST 181, ALT 68, AST/ALT ratio>2,total bilirubin 27.4 on admit. Maddrey score 72.5>> later down to 61. At greater than 32, pts may benefit from glucocorticoid therapy, MELD score 32 points>> has improved to 26 points. 3 month mortality is 52.6%. His high Maddrey and MELD scores supported use of glucoccorticoids for this patient, thus prednisone 40mg po daily was started 07/10. Following his high Ammonia levels and Lactulose daily was started several days ago. Plan: Will increase his spironolactone 50 mg to 75 mg daily We will increase his lactulose from daily to twice daily since he only has 1 BM daily, and since his ammonia level went up which correlated with yesterday afternoon's increased slurred speech and fogginess Qualifiers: Liver failure chronicity: acute Hepatic coma status: without hepatic coma Qualified Code(s): K72.00 - Acute and subacute hepatic failure without coma (5) Liver cirrhosis with ascites Impression: He has hx of heavy alcohol use, elevated total billirubin, AST/ALT>[address] and MRCP impressions support heavy alcohol use as the reason for liver cirrhosis. He came in with moderately large ascites, only has undergone a diagnostic tap has never had a therapeutic paracentesis. He was on Lasix before admission, never spironolactone. Spironolactone was started here PT and OT evaluations have advised that he can be DCh home w/ supportive care, and the plan is to go to live with his mother Plan: supportive care Diagnostic paracentesis took off minimal fluid. He may need future therapeutic paracenteses. 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 Plan: He will need follow up outpatient for possible biopsy. A palliative care consult was requested today and I spoke to Nette Valles NP (7) Hx of Diabetes Impression: He took metformin at home, we did not order this as inpatient due to risk of acidosis. BG are very elevated as high as 300, because of the steroids he has received for 6 days to treat his severe alcoholic hepatitis Hgb came back at A1C 4.7. Given his A1C of 4.7, perhaps he can manage his blood glu with diet alone, as an outpatient. I discussed a proper diabetic diet, with no carbs from alcohol, with the patient and mother today. His mother then remembered and reported that the patient has only eaten bites for the last 1 month because of his liver failure and poor appetite. Plan: Will start glipizide orally Steroids will be stopped since he is a "non-responder". No prednisone was given today. Would expect that the serum glucose levels will start to come down, and therefore maybe he will only need insulin for another week I discussed the need for some Insulin with the patient and mother at bedside. I have asked that the mother be trained in doing fingerstick checks and administering subcu insulin and she is agreeable. She will start to get training today. 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 (9) Hx of Hypertension Impression: He has history of HTN but was initially hypotensive and now normotensive this admission. Suspected this was initially due to his recent 2 weeks of nausea and vomiting and now we think it is due to chronic liver failure. Plan: continue to hold his home HTN meds. Qualifiers: Hypertension type: primary hypertension Qualified Code(s): I10 - Essential (primary) hypertension (10) Hyponatremia Improved after free water restrictions Plan: Follow BMP daily (11) Hypokalemia Impression: Resolved with replacement I suspect this was due to pt's poor po intake and nausea and vomiting over the last 2 weeks. K+ 3.5 this am, Plan: Follow BMP daily - Current Meds Current Meds: Current Medications Generic Name Dose Route Start Last Admin Trade Name Freq PRN Reason Stop Dose Admin Calcium Carbonate/Glycine 500 mg 07/13/22 17:43 07/13/22 18:25 Calcium Carbonate Chew 500 Mg Tablet PO 500 mg TID PRN Administration INDIGESTION Glipizide 5 mg 07/15/22 10:20 07/15/22 10:31 Glipizide 5 Mg Tablet PO 5 mg DAILY SHIRIN Administration Insulin Human Lispro 3 - 11 unit 07/14/22 17:00 07/15/22 08:07 Insulin Lispro 300 Unit/3 Ml Pen SUBQ 5 unit 0800,1200,1700,2100 SHIRIN Administration Protocol Lactobacillus Rhamnosus 1 cap 07/14/22 09:00 07/15/22 08:11 Lactobacillus Rhamnosus Gg Capsule PO 1 cap DAILY SHIRIN Administration Lactulose 10 gm 07/15/22 08:00 07/15/22 08:10 Lactulose 10 Gm /15 Ml Udc PO 10 gm 0800,1200 SHIRIN Administration Nicotine 1 patch 07/11/22 10:00 07/15/22 08:15 Nicotine 7 Mg Patch TOP 1 patch DAILY SHIRIN Administration Pantoprazole Sodium 40 mg 07/15/22 09:00 07/15/22 10:31 Pantoprazole 40 Mg Tablet PO 40 mg DAILY SHIRIN Administration Potassium Chloride 20 meq 07/10/22 08:00 07/15/22 08:11 Potassium Chloride 20 Meq Tablet PO 20 meq TIDWM SHIRIN Administration Multivit/Folic Acid/Iron 1 tab 07/10/22 16:00 07/15/22 08:10 Vitamin Tablet PO 1 tab DAILYWM SHIRIN Administration Sodium Chloride 10 ml 07/09/22 14:38 07/11/22 12:30 Sodium Chloride Flush 0.9% 10 Ml Syringe IVP 10 ml PRN PRN Administration NEEDED PER PROVIDER ORDERS Sodium Chloride 10 ml 07/09/22 17:00 07/15/22 08:15 Sodium Chloride Flush 0.9% 10 Ml Syringe IVP 10 ml 0100,0900,1700 SHIRIN Administration Spironolactone 75 mg 07/15/22 09:00 07/15/22 08:15 Spironolactone 25 Mg Tablet PO 75 mg DAILY SHIRIN Administration Thiamine HCl 100 mg 07/10/22 16:00 07/15/22 08:10 Thiamine 100 Mg Tablet PO 100 mg DAILY SHIRIN Administration - Lab Result Fish Bone Diagrams: 07/15/22 04:42 07/15/22 04:42 - Additional Planning My Orders: My Active Orders 07/14/22 17:00 Insulin Lispro [Humalog Kwikpen U-100] 3 - 11 unit SUBQ 0800,1200,1700,2100 07/15/22 Palliative Care Consult [CONS] Routine director trust Consult [CONS] Routine Diabetes Outpatient Education MAC [MAC] Routine 07/15/22 08:00 Lactulose [Enulose] 10 gm PO 0800,1200 07/15/22 08:36 Diabetic Education [RC] ONCE 07/15/22 09:00 Pantoprazole [Protonix] 40 mg PO DAILY Spironolactone [Aldactone] 75 mg PO DAILY 07/15/22 10:20 glipiZIDE [Glucotrol] 5 mg PO DAILY 07/15/22 Lunch Carb-controlled Diet [DIET] 07/15/22 12:00 Insulin Lispro [Humalog Kwikpen U-100] 5 unit SUBQ TIDWM Subjective - Subjective Patient Reports: Feeling Better, Resting Comfortably Objective Vital Signs: Vital Signs - 24 hr 07/14/22 07/14/22 07/15/22 17:00 20:56 00:10 Temperature 36.3 C L 36.6 C 36.4 C L Heart Rate [ 68 72 68 Brachial] Respiratory 22 21 18 Rate Blood Pressure 115/75 115/71 101/53 L [Right Brachial artery] O2 Saturation 94 94 95 07/15/22 07/15/22 05:00 08:00 Temperature 36.6 C 36.4 C L Heart Rate [ 73 73 Brachial] Respiratory 18 18 Rate Blood Pressure 111/75 115/68 [Right Brachial artery] O2 Saturation 97 96 Oxygen O2 Source [Without Activity] Room air O2 Source Room air I&O (Last 24 Hrs): Intake and Output Totals x24h 07/13/22 07/14/22 07/15/22 23:59 23:59 23:59 Intake Total 1228 930 510 Output Total 950 250 Balance 278 680 510 General: Alert, Oriented x3, Other (Speech is more clear, not as slurred today and he is less withdrawn today. He appears older than his stated age.) HEENT: Mucous membr. moist/pink, Other (Sclerae icteric) Neck: Supple, No JVD Neuro: Alert, Non Focal, Other (No asterixis, no nystagmus) Cardiovascular: Regular rate, No murmurs Respiratory: No respiratory distress, Breath sounds nml Abdomen: Other (Distended more than yesterday, but not firm or tender, positive fluid with) Extremities: No clubbing, No edema Skin: No breakdown (Skin is very icteric and dry) - Results Results: Laboratory Results WBC 35.1 x10^3/uL (4.8-10.8) H* 07/15/22 04:42 RBC 3.06 10^6/uL (4.70-6.10) L 07/15/22 04:42 Hgb 12.5 g/dL (14.0-18.0) L 07/15/22 04:42 Hct 34.8 % (42.0-52.0) L 07/15/22 04:42 MCV 113.7 fL (80.0-94.0) H 07/15/22 04:42 MCH 40.8 pg (27.0-31.0) H 07/15/22 04:42 MCHC 35.9 g/dL (32.0-36.0) 07/15/22 04:42 RDW 16.8 % (12.0-15.0) H 07/15/22 04:42 Plt Count 189 10^3/uL (130-450) 07/15/22 04:42 MPV 9.8 fL (7.4-11.4) 07/15/22 04:42 Neut # (Auto) Not Reportable 07/15/22 04:42 Lymph # (Auto) Not Reportable 07/15/22 04:42 [place] # (Auto) Not Reportable 07/15/22 04:42 Eos # (Auto) Not Reportable 07/15/22 04:42 Baso # (Auto) Not Reportable 07/15/22 04:42 Absolute Nucleated RBC Not Reportable 07/15/22 04:42 Total Counted 100 07/15/22 04:42 Band Neuts % (Manual) 1 % (0-10) 07/15/22 04:42 Abnorm Lymph % (Manual) 0 % 07/15/22 04:42 Metamyelocytes % 1 % (-0) H 07/12/22 04:31 Myelocytes % 2 % (-0) H 07/13/22 04:22 Nucleated RBC % Not Reportable 07/15/22 04:42 Neutrophils # (Manual) 31.9 10^3/uL (1.5-6.6) H 07/15/22 04:42 Lymphocytes # (Manual) 2.8 10^3/uL (1.5-3.5) 07/15/22 04:42 Monocytes # (Manual) 0.4 10^3/uL (0.0-1.0) 07/15/22 04:42 Eosinophils # (Manual) 0.0 10^3/uL (0-0.7) 07/15/22 04:42 Basophils # (Manual) 0.0 10^3/uL (0-0.1) 07/15/22 04:42 Differential Comment MANUAL DIFFERENTIAL 07/15/22 04:42 Manual Slide Review Indicated 07/09/22 11:48 WBC Morphology NORMAL APPEARANCE (NORMAL) 07/14/22 04:45 Platelet Estimate NORMAL (130-450,000) (NORMAL) 07/15/22 04:42 Platelet Morphology NORMAL APPEARANCE (NORMAL) 07/14/22 04:45 RBC Morph Micro Appear 2+ MACROCYTOSIS (NORMAL) 1+ HYPOCHROMASIA (NORMAL) 1+ TARGET CELLS (NORMAL) 07/15/22 04:42 RBC Morph Micro Appear 2+ MACROCYTOSIS (NORMAL) 1+ HYPOCHROMASIA (NORMAL) 1+ TARGET CELLS (NORMAL) 07/15/22 04:42 RBC Morph Micro Appear 2+ MACROCYTOSIS (NORMAL) 1+ HYPOCHROMASIA (NORMAL) 1+ TARGET CELLS (NORMAL) 07/15/22 04:42 PT 17.0 secs (9.9-12.6) H 07/15/22 04:42 INR 1.6 (0.8-1.2) H 07/15/22 04:42 Sodium 133 mmol/L (135-145) L 07/15/22 04:42 Potassium 5.0 mmol/L (3.5-5.0) 07/15/22 04:42 Chloride 101 mmol/L (101-111) 07/15/22 04:42 Carbon Dioxide 22 mmol/L (21-32) 07/15/22 04:42 Anion Gap 10.0 (6-13) 07/15/22 04:42 BUN 21 mg/dL (6-20) H 07/15/22 04:42 Creatinine 0.7 mg/dL (0.6-1.2) 07/15/22 04:42 Estimated GFR (MDRD) 120 (>89) 07/15/22 04:42 Glucose 228 mg/dL (70-100) H 07/15/22 04:42 POC Whole Bld Glucose 188 mg/dL (70 - 100) H 07/15/22 07:26 Estimat Average Glucose 88 mg/dL (70-100) 07/10/22 06:06 Hemoglobin A1c % 4.7 % (4.27-6.07) 07/10/22 06:06 Calcium 8.7 mg/dL (8.5-10.3) 07/15/22 04:42 Ionized Calcium NO 07/15/22 04:42 Phosphorus 3.8 mg/dL (2.5-4.6) 07/15/22 04:42 Magnesium 2.0 mg/dL (1.7-2.8) 07/14/22 08:14 Total Bilirubin 15.6 mg/dL (0.2-1.0) H 07/15/22 04:42 AST 145 IU/L (10-42) H 07/15/22 04:42 ALT 130 IU/L (10-60) H 07/15/22 04:42 Alkaline Phosphatase 226 IU/L (42-121) H 07/15/22 04:42 Ammonia 56.1 umol/L (7-35) H 07/15/22 04:42 Total Protein 5.8 g/dL (6.7-8.2) L 07/15/22 04:42 Albumin 1.8 g/dL (3.2-5.5) L 07/15/22 04:42 Globulin 4.0 g/dL (2.1-4.2) 07/15/22 04:42 Albumin/Globulin Ratio 0.5 (1.0-2.2) L 07/15/22 04:42 Lipase 71 U/L (22-51) H 07/09/22 11:48 Urine Color DARK YELLOW 07/09/22 13:28 Urine Clarity CLEAR (CLEAR) 07/09/22 13:28 Urine pH 6.5 PH (5.0-7.5) 07/09/22 13:28 Ur Specific [place] <=1.005 (1.002-1.030) 07/09/22 13:28 Urine Protein NEGATIVE mg/dL (NEGATIVE) 07/09/22 13:28 Urine Glucose (UA) 100 mg/dL (NEGATIVE) H 07/09/22 13:28 Urine Ketones NEGATIVE mg/dL (NEGATIVE) 07/09/22 13:28 Urine Occult Blood NEGATIVE (NEGATIVE) 07/09/22 13:28 Urine Nitrite NEGATIVE (NEGATIVE) 07/09/22 13:28 Urine Bilirubin LARGE (NEGATIVE) H 07/09/22 13:28 Urine Urobilinogen 1 (NORMAL) E.U./dL (NORMAL) 07/09/22 13:28 Ur Leukocyte Esterase NEGATIVE (NEGATIVE) 07/09/22 13:28 Ur Microscopic Review NOT INDICATED 07/09/22 13:28 Urine Culture Comments NOT INDICATED 07/09/22 13:28 Fluid Source PERITONEAL 07/13/22 16:13 Fluid Color YELLOW 07/13/22 16:13 Fluid Clarity CLEAR 07/13/22 16:13 Fluid WBC 80 /mm^3 07/13/22 16:13 Fluid RBC < 3 /mm^3 07/13/22 16:13 Fluid Neutrophils % 9 % 07/13/22 16:13 Fluid Lymphocytes % 5 % 07/13/22 16:13 Fluid Monocytes % 3 % 07/13/22 16:13 Fluid Macrophages % 75 % 07/13/22 16:13 Fld Mesothelial Cell % 8 % 07/13/22 16:13 Nasal Adenovirus (PCR) NOT DETECTED 07/09/22 14:22 Nasal B. parapertussis DNA (PCR) NOT DETECTED 07/09/22 14:22 Nasal Coronavir 229E PCR NOT DETECTED 07/09/22 14:22 Nasal Coronavir HKU1 PCR NOT DETECTED 07/09/22 14:22 Nasal Coronavir NL63 PCR NOT DETECTED 07/09/22 14:22 Nasal Coronavir OC43 PCR NOT DETECTED 07/09/22 14:22 Nasal Enterovir/Rhinovir PCR NOT DETECTED 07/09/22 14:22 Nasal Influenza B PCR NOT DETECTED 07/09/22 14:22 Nasal Influenza A PCR NOT DETECTED 07/09/22 14:22 Nasal Parainfluen 1 PCR NOT DETECTED 07/09/22 14:22 Nasal Parainfluen 2 PCR NOT DETECTED 07/09/22 14:22 Nasal Parainfluen 3 PCR NOT DETECTED 07/09/22 14:22 Nasal Parainfluen 4 PCR NOT DETECTED 07/09/22 14:22 Nasal RSV (PCR) NOT DETECTED 07/09/22 14:22 Nasal B.pertussis DNA PCR NOT DETECTED 07/09/22 14:22 Nasal C.pneumoniae (PCR) NOT DETECTED 07/09/22 14:22 [place] Human Metapneumo PCR NOT DETECTED 07/09/22 14:22 Nasal M.pneumoniae (PCR) NOT DETECTED 07/09/22 14:22 Nasal SARS-CoV-2 (PCR) NOT DETECTED 07/09/22 14:22 Urine Opiates Screen NEGATIVE (NEGATIVE) 07/11/22 16:08 Ur Oxycodone Screen NEGATIVE (NEGATIVE) 07/11/22 16:08 Urine Methadone Screen NEGATIVE (NEGATIVE) 07/11/22 16:08 Ur Propoxyphene Screen NEGATIVE (NEGATIVE) 07/11/22 16:08 Ur Barbiturates Screen NEGATIVE (NEGATIVE) 07/11/22 16:08 Ur Tricyclics Screen NEGATIVE (NEGATIVE) 07/11/22 16:08 Ur Phencyclidine Scrn NEGATIVE (NEGATIVE) 07/11/22 16:08 Ur Amphetamine Screen NEGATIVE (NEGATIVE) 07/11/22 16:08 U Methamphetamines Scrn NEGATIVE (NEGATIVE) 07/11/22 16:08 U Benzodiazepines Scrn NEGATIVE (NEGATIVE) 07/11/22 16:08 Urine Cocaine Screen NEGATIVE (NEGATIVE) 07/11/22 16:08 U Cannabinoids Screen POSITIVE (NEGATIVE) H 07/11/22 16:08 Ethyl Alcohol < 5.0 mg/dL 07/09/22 11:48 Hepatitis A IgM Ab Positive (Negative) A 07/09/22 11:48 Hep Bs Antigen Negative (Negative) 07/09/22 11:48 Hep B Core IgM Ab Negative (Negative) 07/09/22 11:48 Hepatitis C Antibody 0.1 s/co ratio (0.0-0.9) 07/09/22 11:48 Hepatitis C Interp Comment (.) 07/09/22 11:48
--- NOTE | 2022-07-15 16:23 | CONSULTATION NOTE ---
Palliative Care Consultation - Referral Referring Provider: Dr. Genesis Mccormack Time of Visit: [id number] Referral setting: Hospitalized patient Referral Reason: ESLD/Goals of Care - Information Sources Records reviewed: Previous records reviewed History/Review of Systems obtained from: Patient Exam limitations: No limitations, Other (patient admits to feeling "surreal", mild hazy) - History of Present Illness Brief History of Present Illness: This is a 46-year-old gentleman admitted for Liver cirrhosis with ascites, patient has a history of heavy alcohol use, has had CT and MRCP, as well as diagnostic paracentesis. Unfortunately he also has possible neoplasm of the pancreas, showing abnormality on CT scan, paracentesis was done but no cancer cells were identified in fluid. Patient reports has been feeling quite ill for several weeks, had quit drinking about a month ago in context of this. He reports he did take something to "detox" unclear if this has added to his inflammation. The hospitalist has been in contact with the [facility] quickbooks bookkeeper, patient does have leukocytosis is thought to be a cytokine storm release. Patient is on 40 mg of prednisone daily, been diagnosed with alcohol hepatitis, liver failure, liver cirrhosis with ascites, and presented with hyponatremia and hypokalemia. He is doing better overall currently. Though his ammonia level is high, does report he feels a little "surreal but not confused. Patient received the news today around his end-stage liver disease, does understand this is serious, that there may be some hope but also's could be a life limiting diagnosis. We did review that patient needs further work-up on outpatient basis as well as to align with a quickbooks bookkeeper as soon as possible. Though in the context of current healthcare issues, may take some time yet. Reiterated need to address his drinking, reports has been sober for about 3 to 4 weeks, encouraged him in the context of pending appointments, to commit to looking at outside support, and particularly AA, patient in agreement. Patient reports he has had fairly poor health over this last year, had complications with varicose veins and an infection, in which he lost his job. He feels he has adequate support, he will be discharging to with his parents, does understand the seriousness of his illness and need to commit and be compliant with medications and recommendations of his medical team. Medical/Surgical History - Past Medical History Cardiovascular: reports: Hypertension, Peripheral Vascular Disease Respiratory: reports: Sleep apnea Endocrine/Autoimmune: reports: Type 2 diabetes GI: reports: GERD, Hepatitis, Cirrhosis : reports: None HEENT: reports: None (wears glasses) Psych: reports: Anxiety Musculoskeletal: reports: Fatigue Derm: reports: Other (jaundice) MRSA Hx?: No - Past Surgical History Cardiovascular: reports: Other (venous surgery) - Substance History Use: Uses substance without health or social issues: Tobacco (Smoked 1ppd for over 20 years, now smokes just a few cigarettes a day), Alcohol (Drinks 3-4 beers per night, 1 DUI many years ago, no hx of withdrawal or seizures ) Abuse: Recurrent use of substance despite neg consequences: Alcohol (has been d rinking half of a fifth of vodka a night) Abuse Issues: Intoxication Dependence: Experiences withdrawal or developed tolerances: Alcohol Dependence Issues: Intoxication Tobacco Details: Cigarettes Social History - Living Situation Living arrangement: At home Living Situation: Alone, Other (roomate) Support System: Patient identify his parents particular his mom as a main source of support. He was on the phone with his brother, who lives in [place] feels like he has adequate support and feels badly for his parents. He has not been working for about a year. He does not have significant other or partner. Reports he has been caretaking a house for his parents, and has a roommate. But will be returning to his parents home for support on discharge. Family History - Family History Family History: Mother: Alive and Well, Father: Alive and Well, Brother: Alive and Well Medications/Allergies - Medications Active Medication List: Active Medications Calcium Carbonate/Glycine (Calcium Carbonate Chew 500 Mg Tablet) 500 mg PO TID PRN PRN Reason: INDIGESTION Last Admin: 07/13/22 18:25 Dose: 500 mg Glipizide (Glipizide 5 Mg Tablet) 5 mg PO DAILY [facility] Last Admin: 07/15/22 10:31 Dose: 5 mg Insulin Human Lispro (Insulin Lispro 300 Unit/3 Ml Pen) 3 - 11 unit SUBQ 0800,1200,1700,2100 [facility]; Protocol Last Admin: 07/15/22 12:07 Dose: 7 unit Insulin Human Lispro (Insulin Lispro 300 Unit/3 Ml Pen) 5 unit SUBQ TIDWM [facility]; Protocol Last Admin: 07/15/22 12:33 Dose: 5 unit Lactobacillus Rhamnosus (Lactobacillus Rhamnosus Gg Capsule) 1 cap PO DAILY [facility] Last Admin: 07/15/22 08:11 Dose: 1 cap Lactulose (Lactulose 10 Gm /15 Ml Udc) 10 gm PO 0800,1200 [facility] Last Admin: 07/15/22 12:32 Dose: 10 gm Nicotine (Nicotine 7 Mg Patch) 1 patch TOP DAILY [facility] Last Admin: 07/15/22 08:15 Dose: 1 patch Ondansetron HCl (Ondansetron 4 Mg/2 Ml Vial) 4 mg IVP Q6HR PRN PRN Reason: Nausea / Vomiting Pantoprazole Sodium (Pantoprazole 40 Mg Tablet) 40 mg PO DAILY [facility] Last Admin: 07/15/22 10:31 Dose: 40 mg Potassium Chloride (Potassium Chloride 20 Meq Tablet) 20 meq PO TIDWM [facility] Last Admin: 07/15/22 12:32 Dose: 20 meq Multivit/Folic Acid/Iron ( Vitamin Tablet) 1 tab PO DAILYWM S Last Admin: 07/15/22 08:10 Dose: 1 tab Sodium Chloride (Sodium Chloride Flush 0.9% 10 Ml Syringe) 10 ml IVP PRN PRN PRN Reason: NEEDED PER PROVIDER ORDERS Last Admin: 07/11/22 12:30 Dose: 10 ml Sodium Chloride (Sodium Chloride Flush 0.9% 10 Ml Syringe) 10 ml IVP 0100,0900,1700 [facility] Last Admin: 07/15/22 08:15 Dose: 10 ml Spironolactone (Spironolactone 25 Mg Tablet) 75 mg PO DAILY [facility] Last Admin: 07/15/22 08:15 Dose: 75 mg Thiamine HCl (Thiamine 100 Mg Tablet) 100 mg PO DAILY [facility] Last Admin: 07/15/22 08:10 Dose: 100 mg Chlorthalidone 25 mg PO DAILY 07/09/22 Furosemide [Lasix] 20 mg PO DAILY 07/09/22 metFORMIN [Glucophage] 500 mg PO BIDWM 07/09/22 - Allergies Allergies/Adverse Reactions: Allergies Allergy/AdvReac Type Severity Reaction Status Date / Time No Known Drug Allergies Allergy Verified 04/23/20 20:13 Review of Systems - Constitutional Constitutional: reports: Fatigue, Malaise, Weakness, Weight loss - Eyes Eyes: reports: Vision loss - Cardiovascular Cardiovascular: reports: Lightheadedness, Exertional dyspnea, Decr. exercise tolerance - Respiratory Respiratory: reports: SOB with exertion - Gastrointestinal Gastrointestinal: reports: Abdominal distention, Early satiety - Musculoskeletal Musculoskeletal: reports: Muscle weakness - Neurological Neurological: reports: General weakness, Other (STM fluctuating with hospitalization) - Psychiatric Psychiatric: reports: Anxiety - Endocrine Endocrine: reports: Diabetes type 2 - All Other Systems All Other Systems: reports: Other (limited ROS) Physical Exam - Vital Signs Vital Signs: Vital Signs x48h Temp Pulse Resp BP Pulse Ox 07/15/22 13:00 36.4 C L 66 20 134/74 H 96 07/15/22 08:00 36.4 C L 73 18 115/68 96 - Physical Exam General Appearance: positive: Mild distress (emotional), Anxious Eyes Bilateral: positive: Normal inspection ENT: positive: No signs of dehydration Neck: positive: Trachea midline Cardiovascular: positive: Regular rate & rhythm Respiratory: positive: No respiratory distress Abdomen: positive: Distended, Taut, Obese Skin: positive: Pallor Extremities: positive: No pedal edema Neurologic/Psychiatric: positive: Oriented x3, Weakness, Depressed mood/affect Palliative Care - POLST Patient has POLST: No - Palliative Care Discussion: Patient introduced to palliative care secondary to diagnosis of serious illness. Patient and mother received news earlier this afternoon, patient does understand the seriousness of his illness, and that it is life limiting. Is hoping for the best but does recognize time may be limited. We discussed in the context of what is in his control, as well as information that is missing yet. He will need further work-up on outpatient basis, particularly to rule out neoplasm and to line up with quickbooks bookkeeper. Patient is somewhat resigned, expressing appropriate sadness regarding follow-up from his behaviors. Patient does not feel he is at risk for relapse, but aware needs to seek support. Patient is still feeling quite overwhelmed, was aware that he was seriously ill but this has been somewhat of a shock to say the least. He is still trying to process, we discussed the role of palliative care as far as a layer of support and focus on quality of life issues. Provided introductory sheet for palliative care as well as contact information. Will follow-up with PCP for outpatient referral. Results - Lab Results Lab results reviewed: Yes Fish Bones: 07/15/22 04:42 07/15/22 04:42 Lab and Imaging Results: Lab Results x24hrs 07/15/22 07/15/22 07/15/22 Range/Units 12:04 07:26 04:42 WBC (4.8-10.8) x10^3/uL RBC (4.70-6.10) 10^6/uL Hgb (14.0-18.0) g/dL Hct (42.0-52.0) % MCV (80.0-94.0) fL MCH (27.0-31.0) pg MCHC (32.0-36.0) g/dL RDW (12.0-15.0) % Plt Count (130-450) 10^3/uL MPV (7.4-11.4) fL Neut # (Auto) Lymph # (Auto) [place] # (Auto) Eos # (Auto) Baso # (Auto) Absolute Nucleated RBC Total Counted Band Neuts % (Manual) (0 - 10) % Abnorm Lymph % (Manual) % Nucleated RBC % Neutrophils # (Manual) (1.5-6.6) 10^3/uL Lymphocytes # (Manual) (1.5-3.5) 10^3/uL Monocytes # (Manual) (0.0-1.0) 10^3/uL Eosinophils # (Manual) (0-0.7) 10^3/uL Basophils # (Manual) (0-0.1) 10^3/uL Differential Comment Platelet Estimate (NORMAL) RBC Morph Micro Appear (NORMAL) PT (9.9-12.6) secs INR (0.8-1.2) Sodium (135-145) mmol/L Potassium (3.5-5.0) mmol/L Chloride (101-111) mmol/L Carbon Dioxide (21-32) mmol/L Anion Gap (6-13) BUN (6-20) mg/dL Creatinine (0.6-1.2) mg/dL Estimated GFR (MDRD) (>89) Glucose (70-100) mg/dL POC Whole Bld Glucose 262 H 188 H (70 - 100) mg/dL Calcium (8.5-10.3) mg/dL Ionized Calcium Phosphorus (2.5-4.6) mg/dL Total Bilirubin (0.2-1.0) mg/dL AST (10-42) IU/L ALT (10-60) IU/L Alkaline Phosphatase (42-121) IU/L Ammonia 56.1 H (7-35) umol/L Total Protein (6.7-8.2) g/dL Albumin (3.2-5.5) g/dL Globulin (2.1-4.2) g/dL Albumin/Globulin Ratio (1.0-2.2) 07/15/22 07/15/22 07/15/22 Range/Units 04:42 04:42 04:42 WBC 35.1 H* (4.8-10.8) x10^3/uL RBC 3.06 L (4.70-6.10) 10^6/uL Hgb 12.5 L (14.0-18.0) g/dL Hct 34.8 L (42.0-52.0) % MCV 113.7 H (80.0-94.0) fL MCH 40.8 H (27.0-31.0) pg MCHC 35.9 (32.0-36.0) g/dL RDW 16.8 H (12.0-15.0) % Plt Count 189 (130-450) 10^3/uL MPV 9.8 (7.4-11.4) fL Neut # (Auto) Not Reportable Lymph # (Auto) Not Reportable [place] # (Auto) Not Reportable Eos # (Auto) Not Reportable Baso # (Auto) Not Reportable Absolute Nucleated RBC Not Reportable Total Counted 100 Band Neuts % (Manual) 1 (0 - 10) % Abnorm Lymph % (Manual) 0 % Nucleated RBC % Not Reportable Neutrophils # (Manual) 31.9 H (1.5-6.6) 10^3/uL Lymphocytes # (Manual) 2.8 (1.5-3.5) 10^3/uL Monocytes # (Manual) 0.4 (0.0-1.0) 10^3/uL Eosinophils # (Manual) 0.0 (0-0.7) 10^3/uL Basophils # (Manual) 0.0 (0-0.1) 10^3/uL Differential Comment MANUAL DIFFERENTIAL Platelet Estimate NORMAL (130-450,000) (NORMAL) RBC Morph Micro Appear 1+ TARGET CELLS (NORMAL) PT 17.0 H (9.9-12.6) secs INR 1.6 H (0.8-1.2) Sodium 133 L (135-145) mmol/L Potassium 5.0 (3.5-5.0) mmol/L Chloride 101 (101-111) mmol/L Carbon Dioxide 22 (21-32) mmol/L Anion Gap 10.0 (6-13) BUN 21 H (6-20) mg/dL Creatinine 0.7 (0.6-1.2) mg/dL Estimated GFR (MDRD) 120 (>89) Glucose 228 H (70-100) mg/dL POC Whole Bld Glucose (70 - 100) mg/dL Calcium 8.7 (8.5-10.3) mg/dL Ionized Calcium NO Phosphorus 3.8 (2.5-4.6) mg/dL Total Bilirubin 15.6 H (0.2-1.0) mg/dL AST 145 H (10-42) IU/L ALT 130 H (10-60) IU/L Alkaline Phosphatase 226 H (42-121) IU/L Ammonia (7-35) umol/L Total Protein 5.8 L (6.7-8.2) g/dL Albumin 1.8 L (3.2-5.5) g/dL Globulin 4.0 (2.1-4.2) g/dL Albumin/Globulin Ratio 0.5 L (1.0-2.2) 07/14/22 07/14/22 Range/Units 20:42 16:27 WBC (4.8-10.8) x10^3/uL RBC (4.70-6.10) 10^6/uL Hgb (14.0-18.0) g/dL Hct (42.0-52.0) % MCV (80.0-94.0) fL MCH (27.0-31.0) pg MCHC (32.0-36.0) g/dL RDW (12.0-15.0) % Plt Count (130-450) 10^3/uL MPV (7.4-11.4) fL Neut # (Auto) Lymph # (Auto) [place] # (Auto) Eos # (Auto) Baso # (Auto) Absolute Nucleated RBC Total Counted Band Neuts % (Manual) (0 - 10) % Abnorm Lymph % (Manual) % Nucleated RBC % Neutrophils # (Manual) (1.5-6.6) 10^3/uL Lymphocytes # (Manual) (1.5-3.5) 10^3/uL Monocytes # (Manual) (0.0-1.0) 10^3/uL Eosinophils # (Manual) (0-0.7) 10^3/uL Basophils # (Manual) (0-0.1) 10^3/uL Differential Comment Platelet Estimate (NORMAL) RBC Morph Micro Appear (NORMAL) PT (9.9-12.6) secs INR (0.8-1.2) Sodium (135-145) mmol/L Potassium (3.5-5.0) mmol/L Chloride (101-111) mmol/L Carbon Dioxide (21-32) mmol/L Anion Gap (6-13) BUN (6-20) mg/dL Creatinine (0.6-1.2) mg/dL Estimated GFR (MDRD) (>89) Glucose (70-100) mg/dL POC Whole Bld Glucose 319 H 324 H (70 - 100) mg/dL Calcium (8.5-10.3) mg/dL Ionized Calcium Phosphorus (2.5-4.6) mg/dL Total Bilirubin (0.2-1.0) mg/dL AST (10-42) IU/L ALT (10-60) IU/L Alkaline Phosphatase (42-121) IU/L Ammonia (7-35) umol/L Total Protein (6.7-8.2) g/dL Albumin (3.2-5.5) g/dL Globulin (2.1-4.2) g/dL Albumin/Globulin Ratio (1.0-2.2) Impression and Recommendations - Palliative Care Impression: This is a 46-year-old gentleman who presents with end-stage renal disease, newly diagnosed. Patient does need further outpatient work-up, also to rule out neoplasm as well as to further manage his current acute state. Patient is appropriately feeling overwhelmed, and trying to process the seriousness of his illness. Palliative care introducing role and support, providing simple information in the context of how best to manage currently and follow-up information needed to better prognosticate. Recommendations/Counseling Done: 1. Goals of care. Patient currently processing the seriousness of his illness, does present acutely with multiple issues. Patient feeling overwhelmed and anxious, will need further outpatient work-up. Counseling provided regarding overview of what is known, but yet needs to be determined, support is identified will be transitioning home with parents. Introduced the role of palliative care and creating a layer of support, as well as building rapport. Patient does grasp the seriousness of his illness, and recognize may have limited life expectancy. Does need further information for prognostication. We will follow- up outpatient. 60 minutes with review of chart, coordination of care with hospitalist, counseling [id number] with patient with greater than 50% of this done in counseling regarding illness, trajectory, psychosocial support and role of palliative care.
[2022-07-16] MEDS: SODIUM CHLORIDE FLUSH 0.9% 10 ML SYRINGE IVP SCH ×2 (00:35→11:23)
[2022-07-16 07:31] VITALS: BP 114/71
[2022-07-16] MEDS: SPIRONOLACTONE 25 MG TABLET PO SCH (08:07)
[2022-07-16] MEDS: LACTULOSE 10 GM /15 ML UDC PO SCH (08:08)
[2022-07-16] MEDS: glipiZIDE 5 MG TABLET PO SCH (08:08)
[2022-07-16] MEDS: THIAMINE 100 MG TABLET PO SCH (08:08)
[2022-07-16] MEDS: POTASSIUM CHLORIDE 20 MEQ TABLET PO SCH (08:08)
[2022-07-16] MEDS: PANTOPRAZOLE 40 MG TABLET PO SCH (08:08)
[2022-07-16] MEDS: PRENATAL VITAMIN TABLET PO SCH (08:08)
[2022-07-16] MEDS: LACTOBACILLUS RHAMNOSUS GG CAPSULE PO SCH (08:08)
[2022-07-16] MEDS: NICOTINE 7 MG PATCH TOP SCH (08:09)
[2022-07-16] MEDS: INSULIN LISPRO 300 UNIT/3 ML PEN SUBQ SCH ×2 (08:09)
--- NOTE | 2022-07-16 09:00 | Discharge Plan ---
Discharge Plan Problem Reviewed?: Yes Disposition: Home, Self Care Condition: Serious Prescriptions: Spironolactone [Aldactone] 75 mg PO DAILY #90 tab Blood-Glucose Meter [Glucometer] 1 each [facility] #1 each glipiZIDE [Glucotrol] 5 mg PO DAILY #30 tab Insulin Lispro [Humalog Kwikpen U-100] 3 - 11 unit SUBQ 0800,1200,1700,2100 #1 ea Lactulose 15 ml PO BID #60 each [place], Disposable [Needle] 1 each [facility] #120 ea Nicotine 7 mg Patch [Nicoderm] 1 patch TOP DAILY #7 patch Lancets/Blood Glucose Strips [Pogo Automatic Test Cartridge] 1 each [facility] #120 ea Thiamine [Vitamin B-1] 100 mg PO DAILY #30 tab Diet: Diabetic Activity Restrictions: Activity as Tolerated Shower Restrictions: No Instruction Topics: Paracentesis, Cirrhosis Tx Health Concerns: You were hospitalized to treat severe alcoholic hepatitis. We found that steroid treatment did not improve your liver, therefore you are not being sent home with high-dose steroid treatment. You are now on several new medications for the liver, and the new prescriptions were electronically sent to your [facility] pharmacy in [place]. Please continue to abstain from alcohol completely! You were referred to the Palliative Care provider Nette Valles NP, who will keep seeing you as an outpatient and help guide you and your family. You will need treatment with Insulin for probably a week or 2 more, and then being on a diabetic diet plus a new medication called Glyburide MAY possibly be enough to control your glucose levels. New prescriptions for Insulin, needles, syringes, lancets and a glucometer were also sent to your pharmacy. DO NOT TAKE THE METFORMIN any longer, since it is not recommended for people with liver failure. A chart has being provided to you to administer the proper amount of Insulin, based on the blood glucose result obtained from a fingerstick check, before meals and at bedtime. Please see your Primary Care Provider in the next 5 to 10 days for a hospital follow-up visit. You may need dose adjustments of your Insulin and other medications. You should also get a referral to a liver specialist (a Material Disposition Inspector). Please eat a healthy, high-protein, low starch/diabetic diet. Plan of Treatment: As above. Care Goals: Improvement in symptoms and stabilization are the goals. Assessment: The patient and his mother understand and are in agreement with the plan. Additional Instructions or Follow Up instructions: If you have any questions or any new or worsening symptoms, call your Primary Care Provider for advice, or come to the ER. No Smoking: If you smoke, Please STOP! Call for help. Follow-up with: Esem Knott PA [Primary Care Provider] -
--- NOTE | 2022-07-16 10:36 | DISCHARGE SUMMARY ---
Discharge Summary Admit Date: 07/09/22 Discharge Date: 07/16/22 Discharging Provider: Dr Genesis Mccormack Primary Care Provider: JOHN Knott Code Status: Attempt Resuscitation Condition at Discharge: Serious Discharge Disposition: 01 Home, Self Care - HPI History of Present Illness: Hussain is a 46 yo smoking, white male with PMH of HTN, diabetes, alcohol use, drinks half of a fifth of vodka every night since he was let go from work a year ago, with 3-4 detoxes over his life, but no seizures. Presented to ED with nausea, vomiting, abd cramping, and jaundice with out pain. His last drink was 2 weeks ago when he started having the above symptoms. His mom noticed his yellow skin, then he began to feel unwell, and wobbly. He took a "liver detox called the plug" that he bought online. Took several 8oz bottles of the detox but it did not help and he noticed his urine was getting dark brown. He was very uncomfortable and not able to get a good night's sleep so he came to the hospital. He presented to the ED with painless jaundice. He did have weight loss of 20lbs but that was over a year ago when he got COVID. His labs are Na 120, K 2.0, AST 181, ALT 68, total Bilirubin of 27.4, H&H was not able to be read due to gross icterus. WBC 23.8 CT imaging shows hepatomegaly, and a lesion in the tail of the pancreas, no evidence of bile duct dilation. He is not encephalopathic he does not have asterixis. Admitted to floor for hypokalemia and hyponatremia. He is a pleasant jaundiced man sitting up in bed. His physical exam is notable for hepatomegaly, a large protuberant abd that has a positive fluid wave. He had cramping for a few days with associated nausea and vomiting but denies pain now. He reports a white stool this am. When asked what he thinks is going on he responds that his liver levels are messed up. When the nurse was getting him up to go to the bathroom he fell due to weakness in his legs. Did not hit his head did not loose consciousness. I explained to the patient that although he has liver failure from what we think is cirrhosis and alcohol abuse, his painless jaundice is also possibly suggestive of neoplasm. At this time working to support him with regards to his sodium and potassium. Get him through that. Liver failure will be addressed in the outpatient setting. I have asked him to please not drink again. - HOSPITAL COURSE Hospital Course: (1) Alcoholic hepatitis His Maddrey score was 72.5, MELD score was 32 points. Given his high Maddrey and MELD scores, Prednisone 40 mg daily was indicated and was started on 07/10/22. I spoke to the on-call [employer] Coordinator at on 07/14/22, who recommended to continue Prednisone 40 mg daily (for 28 days), unless his Lille score on day 6 or 7 of treatment showed that he was not responding, and then the steroids could be stopped. On day #6 of steroid treatment, we rechecked his Lille score, with result of 0.808. As per guidelines, if the score is over 0.45, he is a non-responder to steroids. His Prednisone was therefore stopped. And if the score is over 0.45, he has a 25% chance to survive only 6 months. I discussed his Lille score with the patient and his mother, who was at bedside. I also discussed the prognosis with the patient and mother. They both started to cry. Palliative care consult was ordered and Nette Duval NP met the patient and will schedule him as an outpatient. Continuation of abstinence from alcohol was discussed. Referral to a [employer] Program Coord[employer] is advised. (2) Liver failure AST 181, ALT 68, AST/ALT ratio>2, total bilirubin 27.4 on admission, Maddrey score 72.5. At greater than 32, some pts benefit from glucocorticoid therapy. MELD score 32 points, thus 3 month mortality is 52.6%. His high Maddrey and MELD scores supported use of glucoccorticoids, thus Prednisone 40mg po daily was tried (see #1). We followed his high Ammonia levels (74>> 69>> 47>> 56), and Lactulose daily was started then increased to BID, when Ammonia myriam and he had increased slurred speech and fogginess. He was started on Spironolactone 50 mg daily then increased to 75 mg daily and he was discharged on this. (3) Liver cirrhosis with ascites CT and MRCP impressions supported heavy alcohol use as the reason for liver cirrhosis. He came in with moderately large ascites, only had a diagnostic tap while here, and has never had a therapeutic paracentesis. He was on Lasix before admission, never spironolactone. Spironolactone was added while here and he was discharged on this. (4) Leukocytosis His white blood count was elevated this entire admission (23>> 20>> 25>> 27.8>> 28.5>> 31.5>> 35). Steroids were started on 07/10/22 and we expected some increase of WBCs from the steroids, however this WBC was extremely high. There were no signs of an infection: no cough, urinalysis was negative, a diagnostic paracentesis showed WBC< 250 (his ascites fluid WBC was 80), w/ few PMNs (his fluid had 9% neutrophils), and the ascites fluid cx was neg. I spoke to the on- call [employer] Program Coordinator at who agreed he did not need to be on empiric antibiotics, and the [employer] Program Coordinator felt he had cytokine storm. (5) Toxicity associated with cytokine release The on-call [employer] Program Coordinator on 07/14/22 at [facility] felt that this patient had a cytokine storm, with marked demargination of white cells, and very elevated LFTs, but he had no fever or NELSON however. No specific additional treatment was advised. 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 Paracentesis was done and pathology eval of the ascites fluid was sent off as well, but result was still pending at the time of discharge. This mass still needs further work-up. (7) Diabetes Mellitus, Type 2 He took metformin at home, which we did not use this as inpatient due to risk of acidosis. His blood glu were very elevated 200-300 when he was on Prednisone 40 mg daily for a week. He was on sliding scale insulin coverage. Since he is going home without any prednisone, suspect that he will only need insulin for several weeks and the mother was educated on how to do fingersticks and administer subcu insulin. He was discharged home on new prescription for glyburide 5 mg daily. Given his A1C of 4.7, perhaps he can manage his blood glu with diet and oral medications. We discussed a proper diabetic diet, and eliminating the carbs from alcohol, with the patient and mother. (8) Alcohol abuse As per Hx at presentation. He was discharged on daily Thiamine 100 mg a day. (9) Hx of Hypertension He has history of HTN but here he was initially hypotensive and then was normotensive the entire admission. Suspect this normal BP is now due to chronic liver failure and being on diuretics now. (10) Hyponatremia Improved somewhat after free water restrictions, but is consistent with his liver failure. (11) Hypokalemia Resolved with replacement but he was not sent home on any potassium tablets because Spironolactone retains Potassium. - ALLERGIES Allergies/Adverse Reactions: Allergies Allergy/AdvReac Type Severity Reaction Status Date / Time No Known Drug Allergies Allergy Verified 04/23/20 20:13 - MEDICATIONS Home Medications: Ambulatory Orders Medication Instructions Recorded Confirmed Furosemide [Lasix] 20 mg PO DAILY 07/09/22 07/09/22 Blood-Glucose Meter [Glucometer] 1 each [facility] #1 each 07/16/22 Calcium Carbonate [Tums (Calcium 500 mg PO TID PRN tab 07/16/22 Carbonate 500mg)] Insulin Lispro [Humalog Kwikpen 3 - 11 unit SUBQ 07/16/22 U-100] 0800,1200,1700,2100 #1 ea Lactulose 15 ml PO BID #60 each 07/16/22 Lancets/Blood Glucose Strips [Pogo 1 each [facility] #120 ea 07/16/22 Automatic Test Cartridge] [place], Disposable [Needle] 1 each [facility] #120 ea 07/16/22 Nicotine 7 mg Patch [Nicoderm] 1 patch TOP DAILY #7 patch 07/16/22 Spironolactone [Aldactone] 75 mg PO DAILY #90 tab 07/16/22 Thiamine [Vitamin B-1] 100 mg PO DAILY #30 tab 07/16/22 glipiZIDE [Glucotrol] 5 mg PO DAILY #30 tab 07/16/22 - PHYSICAL EXAM AT DISCHARGE General Appearance: positive: No acute distress, Alert Eyes Bilateral: positive: EOMI, Other (Icteric sclerae) ENT: positive: ENT inspection nml, No signs of dehydration Neck: positive: Nml inspection, No JVD Respiratory: positive: No respiratory distress, Breath sounds nml Cardiovascular: positive: Regular rate & rhythm, No murmur Abdomen: positive: Other (Moderately distended, mildly tense, nontender, fluid wave present.) Skin: positive: Other (Icteric, dry) Extremities: positive: Non-tender, Other (Trace pedal edema) Neurologic/Psychiatric: positive: Oriented x3, Other (Speech is slow but not slurred. There is no asterixis or nystagmus.) - LABS Result Diagrams: 07/15/22 04:42 07/15/22 04:42 - DIAGNOSTIC IMAGING Diagnostic Imaging Results: Final report reviewed - FOLLOW UP Follow Up: See PCP in the next 1 to 2 weeks for hospital follow-up visit. Needs referral to a [employer] Program Coord[employer]. Needs to start seeing Palliative Care as an outpatient. - TIME SPENT Time Spent in Discharge (Minutes): 60
== END 2022-07-16 11:05 | disposition home or self-care (01) | DRG 433 ==
LOC: ED 11:00 → MS2 14:37
PROVIDERS: ADMIT Specialist; ATTEND Internal Medicine
PROC: 0W9G3ZX Drainage of Peritoneal Cavity, Percutaneous Approach, Diagnostic (ICD-10-PCS; principal; 2022-07-14)
DX: K70.11 Alcoholic hepatitis with ascites (principal); E87.1 Hypo-osmolality and hyponatremia; K70.40 Alcoholic hepatic failure without coma; F10.20 Alcohol dependence, uncomplicated; K70.31 Alcoholic cirrhosis of liver with ascites; D89.839 Cytokine release syndrome, grade unspecified; D37.8 Neoplasm of uncertain behavior of other specified digestive organs; E11.65 Type 2 diabetes mellitus with hyperglycemia; Z79.84 Long term (current) use of oral hypoglycemic drugs; I10 Essential (primary) hypertension; E87.6 Hypokalemia; F17.210 Nicotine dependence, cigarettes, uncomplicated; Z20.822 Contact with and (suspected) exposure to COVID-19; Z86.16 Personal history of COVID-19; E11.42 Type 2 diabetes mellitus with diabetic polyneuropathy; E11.51 Type 2 diabetes mellitus with diabetic peripheral angiopathy without gangrene; F41.9 Anxiety disorder, unspecified; I95.9 Hypotension, unspecified
CPT/HCPCS: 36415; 49083; 74177; 74183; 80048; 80053; 80306; 80320; 81003; 82140; 83036; 83690; 83735; 84100; 84132; 85025; 85610; 86705; 86709; 86803; 87070; 87205; 87340; 87633; 89051; 93005; 96361; 96365; 97116; 97162; 97166; 97535; 99284; 99285; A9270; A9585; J1815; J7512; Q9967; 81001; 87086

== ENCOUNTER 2022-07-22 09:53 | Outpatient (CLI) | payer MEDICAID ==
[2022-07-22 12:43] LABS: PARTIAL THROMBOPLASTIN TIME 37.7 secs (24.9-33.3)
[2022-07-22 12:53] LABS: BASOPHILS % (AUTO) 0.3 %; EOSINOPHILS # (AUTO) 0.3 10^3/uL (0.0-0.7); EOSINOPHILS % (AUTO) 2.1 %; HCT - HEMATOCRIT 29.7 % (42.0-52.0); HGB - HEMOGLOBIN 9.8 g/dL (14.0-18.0); LYMPHOCYTES # (AUTO) 1.1 10^3/uL (1.5-3.5); LYMPHOCYTES % (AUTO) 9.2 %; MEAN CORPUSCULAR HEMOGLOBIN 39.7 pg (27.0-31.0); MEAN CORPUSCULAR VOLUME 120.2 fL (80.0-94.0); MEAN PLATELET VOLUME 10.6 fL (7.4-11.4); MONOCYTES # (AUTO) 0.9 10^3/uL (0.0-1.0); MONOCYTES % (AUTO) 7.4 %; NEUTROPHILS # (AUTO) 9.7 10^3/uL (1.5-6.6); NEUTROPHILS % (AUTO) 79.8 %; PLT - PLATELET COUNT 317 10^3/uL (130-450); RED BLOOD COUNT 2.47 10^6/uL (4.70-6.10); RED CELL DISTRIBUTION WIDTH 15.9 % (12.0-15.0); WHITE BLOOD COUNT 12.1 x10^3/uL (4.8-10.8)
[2022-07-22 13:19] LABS: INR 1.3 (0.8-1.2); PT - PROTHROMBIN TIME 14.7 secs (9.9-12.6)
[2022-07-22 13:45] LABS: ALBUMIN 2.3 g/dL (3.2-5.5); ALBUMIN/GLOBULIN RATIO 0.6 (1.0-2.2); BILIRUBIN,TOTAL 7.5 mg/dL (0.2-1.0); CALCIUM 8.6 mg/dL (8.5-10.3); CREATININE 0.6 mg/dL (0.6-1.2); POTASSIUM 3.9 mmol/L (3.5-5.0); TOTAL PROTEIN 6.1 g/dL (6.7-8.2)
== END 2022-07-22 09:54 | disposition home or self-care (01) ==
LOC: LAB.N 09:53
PROVIDERS: ATTEND Physician Assistant
DX: K72.90 Hepatic failure, unspecified without coma (principal); K70.10 Alcoholic hepatitis without ascites; D72.829 Elevated white blood cell count, unspecified
CPT/HCPCS: 36415; 80053; 85025; 85610; 85730

== ENCOUNTER 2022-07-25 08:08 | Outpatient (CLI) | payer MEDICAID | END 2022-07-25 08:09 | disposition home or self-care (01) | LOC: LAB 08:08 | PROVIDERS: ATTEND Physician Assistant | DX: K72.90 Hepatic failure, unspecified without coma (principal) | CPT/HCPCS: 36415; 82140 ==

== ENCOUNTER 2022-07-29 08:42 | Outpatient (CLI) | payer MEDICAID ==
[2022-07-29 09:03] LABS: BASOPHILS # (AUTO) 0.1 10^3/uL (0.0-0.1); BASOPHILS % (AUTO) 1.2 %; EOSINOPHILS # (AUTO) 0.3 10^3/uL (0.0-0.7); EOSINOPHILS % (AUTO) 3.3 %; HCT - HEMATOCRIT 37.6 % (42.0-52.0); HGB - HEMOGLOBIN 12.6 g/dL (14.0-18.0); LYMPHOCYTES # (AUTO) 1.1 10^3/uL (1.5-3.5); LYMPHOCYTES % (AUTO) 11.9 %; MEAN CORPUSCULAR HEMOGLOBIN 38.8 pg (27.0-31.0); MEAN CORPUSCULAR HGB CONC 33.5 g/dL (32.0-36.0); MEAN CORPUSCULAR VOLUME 115.7 fL (80.0-94.0); MEAN PLATELET VOLUME 9.8 fL (7.4-11.4); MONOCYTES # (AUTO) 0.6 10^3/uL (0.0-1.0); MONOCYTES % (AUTO) 6.6 %; NEUTROPHILS # (AUTO) 7.1 10^3/uL (1.5-6.6); NEUTROPHILS % (AUTO) 76.5 %; PLT - PLATELET COUNT 298 10^3/uL (130-450); RED BLOOD COUNT 3.25 10^6/uL (4.70-6.10); RED CELL DISTRIBUTION WIDTH 14.7 % (12.0-15.0); WHITE BLOOD COUNT 9.2 x10^3/uL (4.8-10.8)
[2022-07-29 09:07] LABS: SLIDE REVIEW? Indicated
[2022-07-29 09:09] LABS: INR 1.4 (0.8-1.2); PT - PROTHROMBIN TIME 15.7 secs (9.9-12.6)
[2022-07-29 09:16] LABS: PARTIAL THROMBOPLASTIN TIME 38.8 secs (24.9-33.3)
[2022-07-29 09:18] LABS: ALBUMIN 2.7 g/dL (3.2-5.5); ALBUMIN/GLOBULIN RATIO 0.7 (1.0-2.2); BILIRUBIN,TOTAL 5.7 mg/dL (0.2-1.0); CALCIUM 8.9 mg/dL (8.5-10.3); CREATININE 0.6 mg/dL (0.6-1.2); POTASSIUM 4.1 mmol/L (3.5-5.0); TOTAL PROTEIN 6.5 g/dL (6.7-8.2)
[2022-07-29 10:06] LABS: PLATELET ESTIMATE, MANUAL NORMAL (130-450,000) (NORMAL); PLATELET MORPHOLOGY NORMAL APPEARANCE (NORMAL); RBC MORPHOLOGY (MULTIPLE) 4+ MACROCYTOSIS (NORMAL); WBC MORPHOLOGY (MULTIPLE) NORMAL APPEARANCE (NORMAL)
== END 2022-07-29 08:43 | disposition home or self-care (01) ==
LOC: LAB 08:42
PROVIDERS: ATTEND Physician Assistant
DX: K70.31 Alcoholic cirrhosis of liver with ascites (principal); D72.829 Elevated white blood cell count, unspecified; K72.90 Hepatic failure, unspecified without coma
CPT/HCPCS: 36415; 80053; 81599; 82140; 82977; 85025; 85610; 85730

== ENCOUNTER 2023-01-12 08:36 | Outpatient (CLI) | payer MEDICAID ==
[2023-01-12] MEDS ORDERED: iohexoL-300 100 ML VIAL ONE (08:46)
[2023-01-12] MEDS ORDERED: iohexoL-300 100 ML VIAL IVP ONE (09:14)
--- NOTE | 2023-01-12 10:34 | CT Report ---
PROCEDURE: ABDOMEN W/WO INDICATIONS: PANCREAS CA CONTRAST: 100ml Omni 300 TECHNIQUE: 3 phase scanning was performed. After the administration of intravenous contrast, 5 mm thick section s acquired from the diaphragm to the symphysis. 5 mm coronal and sagittal reformats were acquired. For radiation dose reduction, the following was used: automated exposure control, adjustment of mA a nd/or kV according to patient size. COMPARISON: CT abdomen pelvis 07/09/2022 and MRI 05/09/2023 FINDINGS: Image quality: Excellent. Lung bases and heart: Clear lung bases. Normal size heart. No pericardial effusion. No hiatal hernia. Liver: The right lobe of the liver is elongated measuring 22.1 cm in length. Margin of the left and r ight hepatic lobes is lobulated. No discrete liver mass visible. Gallbladder and biliary tree: Partially decompressed gallbladder containing several dependent granula r size stones. No significant wall thickening or pericholecystic inflammation. No intrahepatic biliary dilatation. T he proximal extrahepatic common duct is mildly dilated at 1.0 cm. The distal duct appears to taper to wards the ampulla. No intrahepatic biliary dilatation. Spleen: Elongated and mildly enlarged spleen measuring 15.6 cm in length. Pancreas: Low-density, circumscribed cystic lesion arising dorsal and inferior off the tail of the pa ncreas measures 2.2 cm in size. A mildly peripherally enhancing lobulation extends cranially measurin g about 1.4 cm and demonstrating slight peripheral enhancement. There is no pancreatic ductal dilatat ion. The proximal pancreas appears normal. There are no associated or scattered glandular calcificati ons. Adrenals: No adrenal nodule. Kidneys and ureters: No hydronephrosis. No renal cystic lesion which requires follow up. No solid mas s. Bowel and peritoneum: The stomach and visible bowel loops appear normal without obstruction. A normal appendix is partially seen. No free intraperitoneal air. Resolution of intra-abdominal ascites. Lymph nodes: There are no suspicious epigastric, terrell hepatis, or splenic hilar lymph nodes. No retr operitoneal or mesenteric adenopathy. Vessels: No infrarenal aortic aneurysm. Bones: No suspicious bone lesions. There are degenerative disc and endplate changes in the upper lumb ar spine with grade 1 retrolisthesis L2 on 3. Other: A small fluid containing umbilical hernia is present. IMPRESSION: 1. Cystic lesion in the tail of the pancreas has decreased in size and become much more well-defined compared to prior exams. Differential diagnosis includes pancreatic pseudocyst most likely, less like ly benign or malignant pancreatic neoplasm. Correlate with amylase levels. Follow-up in 3-6 months is recommended. 2. Interval slight decrease in degree of hepatosplenomegaly since the prior exams suggesting resolved acute hepatitis with persistent underlying chronic liver disease. 3. Cholelithiasis and mild extrahepatic biliary dilatation. No CT evidence of choledocholithiasis. Reviewed by: Toma Vidal MD on 01/12/2023 9:33 AM JEREMY Approved by: Toma Vidal MD on 01/12/2023 9:33 AM JEREMY Station ID: [id number]
== END 2023-01-12 08:37 | disposition home or self-care (01) ==
LOC: DI 08:36
PROVIDERS: ATTEND Physician Assistant
DX: D37.8 Neoplasm of uncertain behavior of other specified digestive organs (principal); R16.2 Hepatomegaly with splenomegaly, not elsewhere classified; K80.20 Calculus of gallbladder without cholecystitis without obstruction; K83.8 Other specified diseases of biliary tract
CPT/HCPCS: 74170; Q9967

== ENCOUNTER 2023-03-13 09:04 | Outpatient (CLI) | payer MEDICAID ==
--- NOTE | 2023-03-13 16:52 | XRAY Report ---
PROCEDURE: Shoulder 2 View LT INDICATIONS: PAIN IN LEFT SHOULDER TECHNIQUE: 2 views of the shoulder were acquired. COMPARISON: None. FINDINGS: Bones: No fractures or dislocations. No suspicious bony lesions. Visualized ribs appear intact. Mild acromioclavicular degenerative narrowing. Soft tissues: No suspicious soft tissue calcifications. The visualized lungs are within normal limi ts. IMPRESSION: Early arthritic change at the acromioclavicular joint space. Reviewed by: Maye Anne MD on 03/13/2023 4:50 PM PDT Approved by: Maye Anne MD on 03/13/2023 4:50 PM PDT Station ID: [id number]
== END 2023-03-13 09:05 | disposition home or self-care (01) ==
LOC: DI 09:04
PROVIDERS: ATTEND Physician Assistant
DX: M19.012 Primary osteoarthritis, left shoulder (principal)

== ENCOUNTER 2023-03-17 09:11 | Outpatient (CLI) | payer MEDICAID ==
--- NOTE | 2023-03-17 09:58 | XRAY Report ---
PROCEDURE: Knee 4 View BILAT INDICATIONS: KNEE PAIN,LEFT KNEE PAIN RIGHT TECHNIQUE: 4 views of the bilateral knee(s) were acquired. COMPARISON: None. FINDINGS: Bones: No fractures or dislocations. Mild bilateral medial femoral tibial compartment joint space na rrowing and subchondral sclerosis is seen. No patella subluxation. No suspicious bony lesions. Soft tissues: No knee joint effusion. No suspicious soft tissue calcifications or masses. 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 No fracture or dislocation. No signi ficant joint effusion. Reviewed by: Galo Ennis MD on 03/17/2023 9:57 AM PDT Approved by: Galo Ennis MD on 03/17/2023 9:57 AM PDT Station ID: [id number]
== END 2023-03-17 09:12 | disposition home or self-care (01) ==
LOC: DI 09:11
PROVIDERS: ATTEND Physician Assistant
DX: M17.0 Bilateral primary osteoarthritis of knee (principal)

== ENCOUNTER 2023-05-24 07:20 | Outpatient (CLI) | payer MEDICAID ==
[2023-05-24 12:28] LABS: ALBUMIN 4.4 g/dL (3.2-5.5); ALBUMIN/GLOBULIN RATIO 1.9 (1.0-2.2); BILIRUBIN,TOTAL 0.6 mg/dL (0.2-1.0); CALCIUM 9.6 mg/dL (8.5-10.3); CREATININE 0.7 mg/dL (0.6-1.3); POTASSIUM 4.3 mmol/L (3.5-4.5); TOTAL PROTEIN 6.7 g/dL (6.4-8.9)
[2023-05-24 12:46] LABS: ESTIMATED AVERAGE GLUCOSE 324 mg/dL (70-100); HEMOGLOBIN A1c% 12.9 % (4.27-6.07)
== END 2023-05-24 07:21 | disposition home or self-care (01) ==
LOC: LAB.N 07:20
PROVIDERS: ATTEND Physician Assistant
DX: E11.9 Type 2 diabetes mellitus without complications (principal); K70.31 Alcoholic cirrhosis of liver with ascites
CPT/HCPCS: 36415; 80053; 83036

== ENCOUNTER 2023-08-03 09:36 | Outpatient (CLI) | payer MEDICAID ==
[2023-08-03 12:47] LABS: FERRITIN 31.8 ng/mL (23.9-336.2)
[2023-08-04 06:12] LABS: HCV AB Non Reactive (Non Reactive)
== END 2023-08-03 09:37 | disposition home or self-care (01) ==
LOC: LAB.N 09:36
PROVIDERS: ATTEND Physician Assistant
DX: K70.31 Alcoholic cirrhosis of liver with ascites (principal); D37.8 Neoplasm of uncertain behavior of other specified digestive organs
CPT/HCPCS: 36415; 82728; 83540; 84466; 86301; 86803

== ENCOUNTER 2023-12-26 08:23 | Outpatient (CLI) | payer BC ==
[2023-12-26 12:25] LABS: BASOPHILS # (AUTO) 0.1 10^3/uL (0.0-0.1); BASOPHILS % (AUTO) 0.9 %; EOSINOPHILS # (AUTO) 0.1 10^3/uL (0.0-0.7); EOSINOPHILS % (AUTO) 1.2 %; HCT - HEMATOCRIT 53.4 % (42.0-52.0); HGB - HEMOGLOBIN 17.8 g/dL (14.0-18.0); LYMPHOCYTES # (AUTO) 2.3 10^3/uL (1.5-3.5); LYMPHOCYTES % (AUTO) 21.5 %; MEAN CORPUSCULAR HEMOGLOBIN 31.1 pg (27.0-31.0); MEAN CORPUSCULAR HGB CONC 33.3 g/dL (32.0-36.0); MEAN CORPUSCULAR VOLUME 93.4 fL (80.0-94.0); MEAN PLATELET VOLUME 11.7 fL (7.4-11.4); MONOCYTES # (AUTO) 0.7 10^3/uL (0.0-1.0); MONOCYTES % (AUTO) 6.6 %; NEUTROPHILS # (AUTO) 7.4 10^3/uL (1.5-6.6); NEUTROPHILS % (AUTO) 68.5 %; PLT - PLATELET COUNT 236 10^3/uL (130-450); RED BLOOD COUNT 5.72 10^6/uL (4.70-6.10); RED CELL DISTRIBUTION WIDTH 12.3 % (12.0-15.0); WHITE BLOOD COUNT 10.8 x10^3/uL (4.8-10.8)
[2023-12-26 12:41] LABS: ALBUMIN 4.6 g/dL (3.2-5.5); ALBUMIN/GLOBULIN RATIO 1.6 (1.0-2.2); ALKALINE PHOSPHATASE 83 IU/L (42-121); ALT ALANINE AMINOTRANSFERASE 18 IU/L (10-60); AST ASPARTATE AMINOTRANSFERASE 10 IU/L (10-42); BILIRUBIN,TOTAL 0.6 mg/dL (0.2-1.0); BUN - BLOOD UREA NITROGEN 24 mg/dL (6-20); CALCIUM 9.8 mg/dL (8.5-10.3); CARBON DIOXIDE - CO2 22 mmol/L (21-32); CHLORIDE 103 mmol/L (101-111); CHOL/HDL RATIO 5.5 (<5.0); CHOLESTEROL 205 mg/dL; CREATININE 0.8 mg/dL (0.6-1.3); GFR - MDRD 102 (>89); GLUCOSE 341 mg/dL (74-104); HDL CHOLESTEROL 37 mg/dL; LDL CHOLESTEROL,CALCULATED 128 mg/dL; LDL/HDL RATIO 3.5 (<3.6); POTASSIUM 4.4 mmol/L (3.5-4.5); SODIUM 133 mmol/L (135-145); TOTAL PROTEIN 7.5 g/dL (6.4-8.9); TRIGLYCERIDES 198 mg/dL (48-352); VLDL CHOLESTEROL 40 mg/dL
[2023-12-26 12:45] LABS: ESTIMATED AVERAGE GLUCOSE 280 mg/dL (70-100); HEMOGLOBIN A1c% 11.4 % (4.27-6.07)
[2023-12-26 12:58] LABS: CREATININE,URINE 101.3 mg/dL; MICROALBUM/CREATININE RATIO,UR 14.8 ug/mg (<30.0); MICROALBUMIN,URINE 1.5 mg/dL
[2023-12-26 15:20] LABS: THYROID STIMULATING HORMONE 1.36 uIU/mL (0.34-5.60)
== END 2023-12-26 08:24 | disposition home or self-care (01) ==
LOC: LAB.N 08:23
PROVIDERS: ATTEND Physician Assistant
DX: E11.65 Type 2 diabetes mellitus with hyperglycemia (principal)
CPT/HCPCS: 36415; 80053; 80061; 82043; 82570; 83036; 83721; 84443; 85025